=== PATIENT | male | born 1985 | race American Indian/Alaskan Native ===

== ENCOUNTER 2016-08-29 00:08 | Emergency (ER) | payer SELFPAY ==
[2016-08-29] MEDS ORDERED: NORCO 7.5/325 PO ONE (00:52)
[2016-08-29] MEDS ORDERED: VALIUM PO ONE (00:53)
[2016-08-29] MEDS ORDERED: ZOFRAN ONE (01:58)
[2016-08-29] MEDS ORDERED: MORPHINE ONE (01:58)
[2016-08-29] MEDS ORDERED: MORPHINE IV ONE (02:05)
[2016-08-29] MEDS ORDERED: ZOFRAN IV ONE (02:05)
[2016-08-29] MEDS ORDERED: XYLOCAINE 1%/ EPI 1:100,000 INFILTRATI ONE (02:05)
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
[2016-08-29 03:13] VITALS: BP 129/55
== END 2016-08-29 03:12 | disposition home or self-care (01) ==
LOC: ED 00:08
DX: S41.112A Laceration without foreign body of left upper arm, initial encounter (principal); F17.200 Nicotine dependence, unspecified, uncomplicated; X99.0XXA Assault by sharp glass, initial encounter; Y93.89 Activity, other specified; Y92.89 Other specified places as the place of occurrence of the external cause; Y99.0 Civilian activity done for income or pay
CPT/HCPCS: 12032; 96374; 96375; 99283; J2270; J2405

== ENCOUNTER 2016-12-08 01:29 | Emergency (ER) | payer SELFPAY ==
[2016-12-08] MEDS ORDERED: TYLENOL ONE (01:44)
[2016-12-08] MEDS ORDERED: TYLENOL PO ONE (01:44)
--- NOTE | 2016-12-08 03:26 | Ultrasound Report ---
FINAL REPORT PROCEDURE: US TESTICULAR DOPPLER COMP TECHNIQUE: Real-time leavitt-scale and color flow Doppler sonography in multiple planes of the scrotum, testicles, and epididymes was performed. Velocity spectral waveform analysis Doppler imaging of the arterial inflow and venous outflow of the testicles was performed with image documentation. CPT 87200 and 17351 HISTORY: TESTICULAR PAIN COMPARISON: No prior studies are available for comparison. FINDINGS: RIGHT TESTICLE: Size: 4.1 x 2 x 2.1 cm . Appearance: Normal size and echotexture . Arterial blood flow: Normal spectral waveforms, flow velocities and color flow images.. Venous blood flow: Normal spectral waveforms and color flow images. Right epididymis: Normal size and echotexture . Hydrocele: None . LEFT TESTICLE Size: 4 x 1.9 x 2.7 cm . Appearance: Normal size and echotexture . Arterial blood flow: Normal spectral waveforms, flow velocities and color flow images.. Venous blood flow: Normal spectral waveforms and color flow images. Leftepididymis: Normal size and echotexture . Hydrocele: None . IMPRESSION: Normal Examination
[2016-12-08] MEDS ORDERED: MOTRIN PO ONE (05:33)
--- NOTE | 2016-12-08 05:43 | Emergency Department Report ---
ED Fall HPI - General Chief Complaint: Fall Stated Complaint: FALL/BACK AND TESTICLE PAIN Source: patient Mode of arrival: Ambulatory - Related Data Previous Rx's Medication Instructions Recorded Last Taken Type Cephalexin [Keflex] 500 mg PO QID #20 capsule 08/29/16 Unknown Rx HYDROcodone/APAP 5-325 [[place] 1 each PO Q6HR PRN #12 tablet 08/29/16 Unknown Rx 5/325] Allergies Allergy/AdvReac Type Severity Reaction Status Date / Time diphenhydramine HCl Allergy Itching Verified 12/08/16 01:36 [From Sara] ED Review of Systems ROS: Stated complaint: FALL/BACK AND TESTICLE PAIN Other details as noted in HPI ED Past Medical Hx - Past Medical History Previous Medical History?: No - Surgical History Past Surgical History?: No - Social History Smoking Status: Current Every Day Smoker Substance Use Type: None - Medications Home Medications: Home Medications Medication Instructions Recorded Confirmed Last Taken Type Cephalexin [Keflex] 500 mg PO QID #20 capsule 08/29/16 Unknown Rx HYDROcodone/APAP 5-325 [[place] 1 each PO Q6HR PRN #12 tablet 08/29/16 Unknown Rx 5/325] ED Physical Exam - General Limitations: No Limitations ED Course Vital Signs 12/08/16 01:37 Temperature 98.8 F Pulse Rate 83 Respiratory 22 Rate Blood Pressure 142/80 O2 Sat by Pulse 98 Oximetry Critical care attestation.: If time is entered above; I have spent that time in minutes in the direct care of this critically ill patient, excluding procedure time. ED Disposition Condition: Stable Referrals: PRIMARY CARE, [Primary Care Provider] - 3-5 Days
[2016-12-08] MEDS ORDERED: NORCO 5/325 PO ONE ×2 (05:44→08:07)
--- NOTE | 2016-12-08 05:47 | Emergency Department Report ---
Chief Complaint: Fall Stated Complaint: FALL/BACK AND TESTICLE PAIN - HPI History of Present Illness: 31-year-old male presents with complaint of testicle pain and lower back pain status post fall fall down stairs at home. Patient denies loss of consciousness denies hitting his head. States he has right testicle pain for 1 year but the fall today made it worse. - ROS Review of Systems: 1 year of right sided testicle pain - Exam Vital Signs: Vital Signs 12/08/16 01:37 Temperature 98.8 F Pulse Rate 83 Respiratory 22 Rate Blood Pressure 142/80 O2 Sat by Pulse 98 Oximetry Physical Exam: Mild lower back pain on palpation of lumbar spine region. On exam of groin no hernia on direct palpation of testicle or inguinal canal bilaterally no palpable testicular mass, mild right-sided testicle/scrotal pain and swelling MSE screening note: Focused history and physical exam performed. Due to findings the following was ordered: Screening Assessment/Plan/Differential Dx: Testicle pain, lower back pain status post fall 1- This initial assessment/diagnostic orders/clinical plan/ treatment(s) is/are subject to change based on pt's health status, clinical progression and re- assessment by fellow clinical providers in the ED. Further treatment and workup at subsequent clinical provers discretion. Patient/guardians urged not to elope from ED as their condition may be serious if not clinically assessed and managed. 2-1 dose [place] 3-x-ray lower back L-spine. Patient is ambulatory. UA ordered 4-ultrasound scrotum shows good blood flow to both testicles, no indication of masses ED Disposition for MSE Condition: Stable Referrals: PRIMARY CARE, [Primary Care Provider] - 3-5 Days
--- NOTE | 2016-12-08 06:11 | XRay Report ---
FINAL REPORT PROCEDURE: XR SPINE LUMBOSACRAL 2-3V TECHNIQUE: Lumbar spine radiographs, including AP, lateral, and lumbosacral spot views. CPT 22483 HISTORY: lower back pain status post fall COMPARISON: No prior studies are available for comparison. FINDINGS: Alignment: Normal. Vertebral body heights/Disk spaces: Normal. Fracture(s): None. Facets: Normal. Bone mineralization: Normal. IMPRESSION: Normal Examination.
[2016-12-08 06:55] LABS: Bilirubin,Urine NEG (Negative); Blood,Urine NEG (Negative); Ketones,Urine NEG (Negative); Leukocyte Esterase,Urine NEG (Negative); Mucus,Urine 2+ /HPF; Nitrite,Urine NEG (Negative); Urobilinogen,Urine < 2.0 mg/dL (<2.0)
--- NOTE | 2016-12-08 07:43 | Emergency Department Report ---
ED Male HPI - General Chief complaint: Fall Stated complaint: FALL/BACK AND TESTICLE PAIN Time Seen by Provider: 12/08/16 07:21 Source: patient, family Mode of arrival: Ambulatory Limitations: No Limitations - History of Present Illness Initial comments: 31-year-old male presents with complaint of testicle pain and lower back pain status post fall fall down stairs at home. Patient denies loss of consciousness denies hitting his head. States he has right testicle pain for 1 year but the fall today made it worse. Patient denies any numbness or tingling to extremities. Denies any nausea or vomiting or dizziness. Denies any abdominal pain. Denies any urinary frequency urgency or burning. Denies any loss of bowel or bladder function. Explained is 10 out of 10 to his lower back and to attend to his testicles.testicular pain comes and goes. No over-the- counter medication taken MD Complaint: testicle pain, other (lower back) -: This morning Location: right testicle, left testicle (over a year) Radiation: none Severity: severe (lower back) Severity scale (0 -10): 10 Quality: aching Consistency: constant Improves with: none Worsens with: none other (lower back pain). denies: discharge, swelling, mass, rash, urinary retention, blood in urine, dysuria, fever, nausea/vomiting, incontinence - Related Data Sexually active: Yes Previous Rx's Medication Instructions Recorded Last Taken Type Cephalexin [Keflex] 500 mg PO QID #20 capsule 08/29/16 Unknown Rx HYDROcodone/APAP 5-325 [[place] 1 each PO Q6HR PRN #12 tablet 08/29/16 Unknown Rx 5/325] traMADol [Ultram] 50 mg PO Q6HR PRN #20 tablet 12/08/16 Unknown Rx Allergies Allergy/AdvReac Type Severity Reaction Status Date / Time diphenhydramine HCl Allergy Itching Verified 12/08/16 01:36 [From Sara] ED Review of Systems ROS: Stated complaint: FALL/BACK AND TESTICLE PAIN Other details as noted in HPI Comment: All other systems reviewed and negative Constitutional: denies: chills, fever ENT: denies: throat pain Respiratory: no symptoms reported Cardiovascular: denies: chest pain, palpitations, edema, syncope Gastrointestinal: denies: abdominal pain, nausea, vomiting, diarrhea Genitourinary: testicular pain. denies: urgency, dysuria, frequency, hematuria , discharge, testicular mass Musculoskeletal: back pain. denies: joint swelling, arthralgia, myalgia Skin: denies: rash Neurological: denies: headache, weakness, numbness, paresthesias, confusion, abnormal gait, vertigo ED Past Medical Hx - Past Medical History Previous Medical History?: No - Surgical History Past Surgical History?: No - Family History Family history: no significant - Social History Smoking Status: Current Every Day Smoker Substance Use Type: None - Medications Home Medications: Home Medications Medication Instructions Recorded Confirmed Last Taken Type Cephalexin [Keflex] 500 mg PO QID #20 capsule 08/29/16 Unknown Rx HYDROcodone/APAP 5-325 [[place] 1 each PO Q6HR PRN #12 tablet 08/29/16 Unknown Rx 5/325] traMADol [Ultram] 50 mg PO Q6HR PRN #20 tablet 12/08/16 Unknown Rx ED Physical Exam - General Limitations: No Limitations General appearance: alert, in no apparent distress - Head Head exam: Present: atraumatic, normocephalic, normal inspection - Expanded Head Exam Expanded Head exam: Absent: laceration, abrasion, contusion, hematoma, racoon eyes, pascual's sign, general tenderness, tenderness of temporal artery, CSF rhinorrhea , CSF otorrhea - Eye Eye exam: Present: normal appearance, PERRL, EOMI. Absent: scleral icterus, conjunctival injection, nystagmus, periorbital swelling, periorbital tenderness Pupils: Present: normal accommodation - ENT ENT exam: Present: normal exam, normal orophraynx, mucous membranes moist, TM's normal bilaterally, normal external ear exam - Neck Neck exam: Present: normal inspection, full ROM. Absent: tenderness, meningismus, lymphadenopathy, thyromegaly - Expanded Neck Exam Expanded Neck exam: Absent: tenderness, midline deformity, anterior neck swelling, tracheal deviation - Respiratory Respiratory exam: Present: normal lung sounds bilaterally. Absent: respiratory distress, chest wall tenderness - Cardiovascular Cardiovascular Exam: Present: regular rate, normal rhythm, normal heart sounds - GI/Abdominal GI/Abdominal exam: Present: soft, normal bowel sounds. Absent: distended, tenderness, guarding, rebound, rigid - exam: Present: normal inspection, testicular tenderness. Absent: urethral discharge, scrotal swelling, vertical testicular lie External exam: Present: normal external exam. Absent: erythema, swelling, lesions, lacerations, ecchymosis, bleeding - Extremities Exam Extremities exam: Present: normal inspection, full ROM, normal capillary refill. Absent: tenderness, pedal edema, joint swelling, calf tenderness - Back Exam Back exam: Present: normal inspection, full ROM, vertebral tenderness (lumbar spine). Absent: tenderness, CVA tenderness (R), CVA tenderness (L), muscle spasm, paraspinal tenderness, rash noted - Expanded Back Exam Expanded Back exam: Absent: saddle anesthesia Back exam: Negative Straight Leg Raising: Left, Right - Neurological Exam Neurological exam: Present: alert, oriented X3, normal gait, reflexes normal. Absent: motor sensory deficit - Expanded Neurological Exam Expanded Neurological exam: Absent: innattentive, memory loss-remote event, memory loss- recent event, ataxia, receptive aphasia, expressive aphasia, total aphasia, tremor, protecting the airway Patient oriented to: Present: person, place, time Speech: Present: fluid speech Cranial nerves: EOM's Intact: Normal, Gag Reflex: Normal, Tongue Deviation: Normal, Nystagmus: Normal, Facial Sensation: Normal Cerebellar function: Romberg: Normal Upper motor neuron: Pronator Drift: Normal, Sensory Extinction: Normal Sensory exam: Upper Extremity Light Touch: Normal, Upper Extremity Temperature: Normal, UE 2 Point Discrimination: Normal, Lower Extremity Light Touch: Normal, Lower Extremity Temperature: Normal, LE 2 Point Discrimination: Normal Motor strength exam: RUE: 5, LUE: 5, RLE: 5, LLE: 5 DTR: bicep (R): 2+, bicep (L): 2+, tricep (R): 2+, tricep (L): 2+, knee (R): 2+ , knee (L): 2+, ankle (R): 2+, ankle (L): 2+ Best Eye Response ([place]): (4) open spontaneously Best Motor Response ([place]): (6) obeys commands Best Verbal Response ([place]): (5) oriented [place] Total: 15 - Psychiatric Psychiatric exam: Present: normal affect, normal mood - Skin Skin exam: Present: warm, dry, intact, normal color. Absent: rash ED Course Vital Signs 12/08/16 12/08/16 01:37 05:52 Temperature 98.8 F Pulse Rate 83 78 Respiratory 22 18 Rate Blood Pressure 142/80 Blood Pressure 138/78 [Right] O2 Sat by Pulse 98 98 Oximetry - Reevaluation(s) Reevaluation #1: 12/08/16 08:05 Patient stable throughout ED course: 12/08/16 08:07 Patient given [place] 5/325 a total of 2 tablets in emergency room. He was also given Tylenol 975 mg. Pain down to 3 out of 10. She able to ambulate in room without any difficulties. ED Medical Decision Making - Lab Data Lab Results 12/08/16 Range/Units 06:29 Urine Color Yellow (Yellow) Urine Turbidity Clear (Clear) Urine pH 5.0 (5.0-7.0) Ur Specific [place] 1.035 H (1.003-1.030) Urine Protein 30 mg/dl (Negative) mg/dL Urine Glucose (UA) Neg (Negative) mg/dL Urine Ketones Neg (Negative) mg/dL Urine Blood Neg (Negative) Urine Nitrite Neg (Negative) Urine Bilirubin Neg (Negative) Urine Urobilinogen < 2.0 (<2.0) mg/dL Ur Leukocyte Esterase Neg (Negative) Urine WBC (Auto) 1.0 (0.0-6.0) /HPF Urine RBC (Auto) 3.0 (0.0-6.0) /HPF U Epithel Cells (Auto) 1.0 (0-13.0) /HPF Urine Mucus 2+ /HPF - Radiology Data Radiology results: report reviewed X-ray of the lumbar spine reveal no acute findings. Ultrasound of testicles reveals no acute findings. Normal venous and arterial blood flow - Medical Decision Making ED course: Patient status post fall with complaint of lower back pain which x- ray shows no acute fracture or subluxation. Also with testicular pain for over one year .testicular exam is normal and ultrasound revealed no acute findings. Urinalysis without any acute findings. Lab results and diagnostic resolved explained to patient and family voiced understanding. I informed him that he will need to follow-up with outpatient urology and also primary care and orthopedics . He does not have a primary care physician so I told him to follow up at [facility] to call and Saturday to schedule an appointment. Patient given Tylenol 975 mg 1 by mouth in triage and [place] 5/3/20 /25 milligrams 2 tablets in one tablet increments in emergency room with positive relief of pain. Critical care attestation.: If time is entered above; I have spent that time in minutes in the direct care of this critically ill patient, excluding procedure time. ED Disposition Clinical Impression: Testicular pain, left, Protein in urine Fall down stairs Qualifiers: Encounter type: initial encounter Qualified Code(s): W10.8XXA - Fall (on) (from ) other stairs and steps, initial encounter Lower back pain Qualifiers: Chronicity: acute Back pain laterality: midline Sciatica presence: without sciatica Qualified Code(s): M54.5 - Low back pain Disposition: TO HOME OR SELFCARE Is pt being admited?: No Does the pt Need Aspirin: No Condition: Stable Instructions: Fall Prevention (ED), Acute Low Back Pain (ED), Testicle Pain (ED ) Additional Instructions: Please follow up with orthopedic doctor and urologist as instructed Take Ultram as needed for pain per instructions Rest for [address] [facility] for primary care Is increase her fluid intake as your urinalysis showed that you are not drinking enough fluids You have some protein in urine sodium need to follow-up at [facility] for reevaluation if urinalysis. Prescriptions: traMADol [Ultram] 50 mg PO Q6HR PRN #20 tablet PRN Reason: Pain Referrals: [facility] [Outside] - 3-5 Days MERLIN PARR MD [Staff Physician] - 2-3 Days [facility] [Provider Group] - 3-5 Days Forms: Accompanied Note, Work/School Release Form(ED)
[2016-12-08 09:21] VITALS: BP 105/68
== END 2016-12-08 08:51 | disposition home or self-care (01) ==
LOC: ED 01:29
DX: M54.5 Low back pain (principal); N50.812 Left testicular pain; R80.9 Proteinuria, unspecified; F17.200 Nicotine dependence, unspecified, uncomplicated; Z88.8 Allergy status to other drugs, medicaments and biological substances; W10.9XXA Fall (on) (from) unspecified stairs and steps, initial encounter; Y93.89 Activity, other specified; Y99.8 Other external cause status; Y92.098 Other place in other non-institutional residence as the place of occurrence of the external cause
CPT/HCPCS: 72100; 81001; 93975

== ENCOUNTER 2017-06-09 15:45 | Emergency (ER) | payer OTHER ==
[2017-06-09 16:53] VITALS: BP 117/69
[2017-06-09] MEDS ORDERED: NORCO 5/325 PO ONE (21:07)
[2017-06-09 21:18] LABS: Basophils % (Auto) 0.6 % (0.0-1.8); Eosinophils # (Auto) 0.2 K/mm3 (0.0-0.4); Eosinophils % (Auto) 2.8 % (0.0-4.3); Hematocrit 39.8 % (35.5-45.6); Hemoglobin 13.3 gm/dl (11.8-15.2); Lymphocytes # (Auto) 1.8 K/mm3 (1.2-5.4); Lymphocytes % (Auto) 26.9 % (13.4-35.0); Mean Corpuscular HGB Conc 33 % (32-34); Mean Corpuscular Hemoglobin 31 pg (28-32); Mean Corpuscular Volume 93 fl (84-94); Monocytes # (Auto) 0.9 K/mm3 (0.0-0.8); Monocytes % (Auto) 13.6 % (0.0-7.3); Platelet Count 275 K/mm3 (140-440); Red Blood Count 4.29 M/mm3 (3.65-5.03); Red Cell Distribution Width 14.2 % (13.2-15.2)
[2017-06-09 21:24] LABS: Bacteria,Urine 1+ /HPF (Negative); Bilirubin,Urine NEG (Negative); Blood,Urine SM (Negative); Color,Urine Yellow (Yellow); Mucus,Urine FEW /HPF; Nitrite,Urine NEG (Negative); Urobilinogen,Urine < 2.0 mg/dL (<2.0)
[2017-06-09 21:31] LABS: Amphetamine Screen,Urine PRESUMPTIVE NEGATIVE; Benzodiazepines Screen,Urine PRESUMPTIVE NEGATIVE; Cannabinoid Screen,Urine PRESUMPTIVE NEGATIVE; Cocaine Screen,Urine PRESUMPTIVE NEGATIVE; Methadone Screen,Urine PRESUMPTIVE NEGATIVE; Opiate Screen,Urine PRESUMPTIVE NEGATIVE
[2017-06-09 21:40] LABS: BUN/Creatinine Ratio 9; Blood Urea Nitrogen 12 mg/dL (9-20); Calcium 9.6 mg/dL (8.4-10.2); Hemolysis Index 12
--- NOTE | 2017-06-09 21:49 | Emergency Department Report ---
ED Extremity Problem HPI - General Chief complaint: Pain General Stated complaint: PELVIC/BACK PAIN Time Seen by Provider: 06/09/17 21:02 Source: patient Mode of arrival: Ambulatory Limitations: No Limitations - History of Present Illness Initial comments: 31-year-old male past medical history none presents with complaint of several years of body pain. Patient states he has intermittent aching of his hips bilaterally. Denies any trauma denies any fevers chills nausea vomiting dysuria or increased urinary frequency or hematuria. Denies any abdominal or flank pain denies any chest pain or palpitations. Patient states that he has been told in urgent care that he may have fibromyalgia. Patient states he came to the ED for second opinion. Patient states that currently he has some hip pain. Patient is ambulatory without assistance. He states he has taken Tylenol and NSAIDs with minimal relief of his pain. Patient is awake alert and oriented 3 nontoxic appearing. MD Complaint: extremity pain -: year(s) Location: other (hips) -: Yes arthralgia Radiation: none Quality: aching Consistency: constant Associated Symptoms: arthralgias - Related Data Previous Rx's Medication Instructions Recorded Last Taken Type Cephalexin [Keflex] 500 mg PO QID #20 capsule 08/29/16 Unknown Rx HYDROcodone/APAP 5-325 [[place] 1 each PO Q6HR PRN #12 tablet 08/29/16 Unknown Rx 5/325] traMADol [Ultram] 50 mg PO Q6HR PRN #20 tablet 12/08/16 Unknown Rx Naproxen 500 mg PO BID PRN #30 tablet 06/09/17 Unknown Rx traMADol [Ultram 50 MG tab] 50 mg PO Q6HR PRN #10 tablet 06/09/17 Unknown Rx Allergies Allergy/AdvReac Type Severity Reaction Status Date / Time diphenhydramine HCl Allergy Itching Verified 06/09/17 16:50 [From Benadryl] ED Review of Systems ROS: Stated complaint: PELVIC/BACK PAIN Other details as noted in HPI Constitutional: denies: chills, fever Eyes: denies: eye pain, eye discharge, vision change ENT: denies: ear pain, throat pain Respiratory: denies: cough, shortness of breath, wheezing Cardiovascular: denies: chest pain, palpitations Endocrine: no symptoms reported Gastrointestinal: denies: abdominal pain, nausea, diarrhea Genitourinary: denies: urgency, dysuria Musculoskeletal: as per HPI, arthralgia. denies: back pain, joint swelling Skin: denies: rash, lesions Neurological: denies: headache, weakness, paresthesias Psychiatric: denies: anxiety, depression Hematological/Lymphatic: denies: easy bleeding, easy bruising ED Past Medical Hx - Past Medical History Previous Medical History?: No - Surgical History Past Surgical History?: No - Social History Smoking Status: Current Every Day Smoker Substance Use Type: None - Medications Home Medications: Home Medications Medication Instructions Recorded Confirmed Last Taken Type Cephalexin [Keflex] 500 mg PO QID #20 capsule 08/29/16 Unknown Rx HYDROcodone/APAP 5-325 [[place] 1 each PO Q6HR PRN #12 tablet 08/29/16 Unknown Rx 5/325] traMADol [Ultram] 50 mg PO Q6HR PRN #20 tablet 12/08/16 Unknown Rx Naproxen 500 mg PO BID PRN #30 tablet 06/09/17 Unknown Rx traMADol [Ultram 50 MG tab] 50 mg PO Q6HR PRN #10 tablet 06/09/17 Unknown Rx ED Physical Exam - General Limitations: No Limitations General appearance: alert, in no apparent distress - Head Head exam: Present: atraumatic, normocephalic - Eye Eye exam: Present: normal appearance, PERRL, EOMI - ENT ENT exam: Present: mucous membranes moist - Neck Neck exam: Present: normal inspection - Respiratory Respiratory exam: Present: normal lung sounds bilaterally. Absent: respiratory distress - Cardiovascular Cardiovascular Exam: Present: regular rate, normal rhythm. Absent: systolic murmur, diastolic murmur, rubs, gallop - GI/Abdominal GI/Abdominal exam: Present: soft, normal bowel sounds - Rectal Rectal exam: Present: deferred - Extremities Exam Extremities exam: Present: normal inspection - Back Exam Back exam: Present: normal inspection - Neurological Exam Neurological exam: Present: alert, oriented X3 - Psychiatric Psychiatric exam: Present: normal affect, normal mood - Skin Skin exam: Present: warm, dry, intact, normal color. Absent: rash ED Course Vital Signs 06/09/17 16:50 Temperature 98.8 F Pulse Rate 78 Respiratory 16 Rate Blood Pressure 117/69 O2 Sat by Pulse 99 Oximetry ED Medical Decision Making - Lab Data Result diagrams: 06/09/17 21:06/09/17 21:07 - Medical Decision Making A/P: Arthralgias, chronic hip pain, possible pain disorder 1-naproxen when necessary, short course tramadol when necessary 2-follow up with primary care and pain management 3-labs unremarkable, urinalysis unremarkable. UA does show some leukocytes with trace leukocyte esterase will treat patient empirically with Cipro. Patient has no urinary symptoms at this time. No flank pain no testicular or penile pain or dysuria no suprapubic tenderness Critical care attestation.: If time is entered above; I have spent that time in minutes in the direct care of this critically ill patient, excluding procedure time. ED Disposition Clinical Impression: Chronic hip pain Qualifiers: Laterality: unspecified laterality Qualified Code(s): M25.559 - Pain in unspecified hip; G89.29 - Other chronic pain; G89.29 - Other chronic pain Disposition: TO HOME OR SELFCARE Is pt being admited?: No Does the pt Need Aspirin: No Condition: Stable Instructions: Chronic Pain (ED), Arthralgia (ED) Prescriptions: Naproxen 500 mg PO BID PRN #30 tablet PRN Reason: Pain traMADol [Ultram 50 MG tab] 50 mg PO Q6HR PRN #10 tablet PRN Reason: Pain Referrals: [facility] [place][Note 3] [Outside] - 3-5 Days [facility] [Outside] - 3-5 Days MAY BARAJAS MD [Staff Physician] - 3-5 Days Time of Disposition: 23:04
--- NOTE | 2017-06-09 23:09 | XRay Report ---
FINAL REPORT EXAM: XR HIPS BILAT 2V W/PELVIS HISTORY: hip pain COMPARISON: None available. FINDINGS: AP view of the pelvis and frogleg views of each hip obtained. Pelvic ring is intact. Bilateral hip and SI joint spaces are preserved. Small bony protuberance along the superior lateral margin left acetabular rim. This may be developmental or could relate to sequelae of prior trauma. Mild hypertrophic spurring along the lateral margin left femoral neck. No acute fracture dislocation on today's exam. Bowel gas partially obscures the sacrum. IMPRESSION: No acute bony abnormality. Bony bony protrusions along the lateral superior margin left acetabular rim and mild spurring along the lateral margin left femoral neck. Combination of findings could predispose the patient to femoral acetabular impingement.
== END 2017-06-09 23:15 | disposition home or self-care (01) ==
LOC: ED 15:45
DX: M25.551 Pain in right hip (principal); M25.552 Pain in left hip; G89.29 Other chronic pain; F17.200 Nicotine dependence, unspecified, uncomplicated; Z88.8 Allergy status to other drugs, medicaments and biological substances; Z79.899 Other long term (current) drug therapy
CPT/HCPCS: 36415; 73521; 80048; 80307; 81001; 82550; 85025; 99284

== ENCOUNTER 2017-06-10 21:25 | Inpatient (IN) | payer OTHER ==
[~2017-06-10 21:25] MED LIST: AMIDATE IV ONE; KETALAR ONE; QUELICIN ONE; VERSED IV ONE; ZEMURON IV ONE
[2017-06-10] MEDS ORDERED: ATIVAN ONE (21:34)
[2017-06-10] MEDS ORDERED: MORPHINE ONE (21:36)
[2017-06-10] MEDS ORDERED: KEPPRA 1,000 MG/NS 0.75% 100ML 1,000 MG/100 ML BAG IV ONE ×2 (21:37→22:00)
[2017-06-10] MEDS ORDERED: ROCEPHIN/NS 2 GM/100 ML 2 GM/100 ML BAG IV ONE (21:40)
[2017-06-10] MEDS ORDERED: NACL 0.9% 1000 ML IV ONE (21:40)
[2017-06-10] MEDS ORDERED: ARTIFICIAL TEARS OPHTH OINT OU PRN (21:44)
[2017-06-10] MEDS ORDERED: TYLENOL PR ONE (21:44)
[2017-06-10] MEDS ORDERED: ZEMURON IV ONE (21:44)
[2017-06-10] MEDS ORDERED: AMIDATE IV ONE (21:44)
[2017-06-10] MEDS ORDERED: DECADRON IV ONE (21:49)
[2017-06-10] MEDS ORDERED: VANCOMYCIN/NS 1 GM/250 ML 1 GM/250 ML BAG IV ONE (22:00)
[2017-06-10] MEDS ORDERED: VERSED IV NR (22:00)
[2017-06-10] MEDS ORDERED: cefTRIAXone 2 GM in NACL 0.9% 20 ML IV ONE (22:00)
[2017-06-10] MEDS ORDERED: NACL 0.9% 500 ML IV SCH (22:00)
--- NOTE | 2017-06-10 22:05 | Emergency Department Report ---
ED General Adult HPI - General Chief complaint: Dyspnea/Respdistress Stated complaint: POSS ALLERGIC REACTION Time Seen by Provider: 06/10/17 21:39 Source: family Mode of arrival: Wheelchair Limitations: Altered Mental Status - History of Present Illness Initial comments: This is a 31-year-old male who was previously unknown to this provider, who is brought to the hospital by his for possible allergic reaction. The patient was pulled out of the car, nonverbal. Upon my initial evaluation, patient was tachycardic, and sonorously breathing. He was obtunded, and not protecting his airway. In addition, he was noted to have nonspecific ocular movements, and a generalized convulsive event. Patient placed on a addiction psychiatrist, he is placed on a nasal cannula, IV access is established, and qsb-[id number] ventilation is applied. He is given 20 mg of etomidate, 100 mg rocuronium, and he is intubated using direct laryngoscopy using a 7.5 endotracheal tube, and occurred Aguilar's 4 blade. He is also given 5 mg of Versed, and given Keppra 1 g empirically. Review of recent medical records indicates the patient was seen here yesterday for nonspecific musculoskeletal pain, started on ciprofloxacin and tramadol. -: unknown Consistency: constant Improves with: none Worsens with: none Associated Symptoms: confusion - Related Data Previous Rx's Medication Instructions Recorded Last Taken Type Cephalexin [Keflex] 500 mg PO QID #20 capsule 08/29/16 Unknown Rx HYDROcodone/APAP 5-325 [[place] 1 each PO Q6HR PRN #12 tablet 08/29/16 Unknown Rx 5/325] traMADol [Ultram] 50 mg PO Q6HR PRN #20 tablet 12/08/16 Unknown Rx Ciprofloxacin HCl [Cipro] 500 mg PO BID #14 tablet 06/09/17 Unknown Rx Naproxen 500 mg PO BID PRN #30 tablet 06/09/17 Unknown Rx traMADol [Ultram 50 MG tab] 50 mg PO Q6HR PRN #10 tablet 06/09/17 Unknown Rx Allergies Allergy/AdvReac Type Severity Reaction Status Date / Time diphenhydramine HCl Allergy Itching Verified 06/09/17 16:50 [From Benadryl] ED Review of Systems ROS: Stated complaint: POSS ALLERGIC REACTION Other details as noted in HPI Comment: Unobtainable due to pts medical conditions ED Past Medical Hx - Social History Smoking Status: Current Every Day Smoker Substance Use Type: None - Medications Home Medications: Home Medications Medication Instructions Recorded Confirmed Last Taken Type Cephalexin [Keflex] 500 mg PO QID #20 capsule 08/29/16 Unknown Rx HYDROcodone/APAP 5-325 [[place] 1 each PO Q6HR PRN #12 tablet 08/29/16 Unknown Rx 5/325] traMADol [Ultram] 50 mg PO Q6HR PRN #20 tablet 12/08/16 Unknown Rx Ciprofloxacin HCl [Cipro] 500 mg PO BID #14 tablet 06/09/17 Unknown Rx Naproxen 500 mg PO BID PRN #30 tablet 06/09/17 Unknown Rx traMADol [Ultram 50 MG tab] 50 mg PO Q6HR PRN #10 tablet 06/09/17 Unknown Rx ED Physical Exam - General Limitations: Altered Mental Status General appearance: obtunded - Eye Eye exam: Present: normal appearance, other (pupils are 3 mm bilaterally, minimally reactive to light) - ENT ENT exam: Present: normal orophraynx - Neck Neck exam: Present: normal inspection - Respiratory Respiratory exam: Present: normal lung sounds bilaterally. Absent: respiratory distress, chest wall tenderness - Cardiovascular Cardiovascular Exam: Present: normal rhythm, tachycardia. Absent: systolic murmur, diastolic murmur, rubs, gallop - GI/Abdominal GI/Abdominal exam: Present: soft, normal bowel sounds. Absent: distended, tenderness, guarding, rebound, rigid, pulsatile mass - Rectal Rectal exam: Present: normal inspection - exam: Present: normal inspection - Extremities Exam Extremities exam: Present: normal inspection, other (the compartments are soft. There is no clonus. There are downgoing plantar reflexes bilaterally) - Back Exam Back exam: Present: other (no vertebral step-offs are noted). Absent: paraspinal tenderness, vertebral tenderness - Neurological Exam Neurological exam: Present: altered (patient is nonverbal. Prior to paralysis and intubation, he is noted to have total convulsive body event.) - Psychiatric Psychiatric exam: Present: other (patient nonverbal and altered) - Skin Skin exam: Present: dry ED Course Vital Signs 06/10/17 06/10/17 06/10/17 21:35 21:46 22:07 Temperature 102.5 F H Pulse Rate 105 H 104 H Respiratory 12 18 Rate Blood Pressure 192/109 176/100 O2 Sat by Pulse 100 100 Oximetry 06/10/17 23:09 Temperature Pulse Rate 99 H Respiratory Rate Blood Pressure 136/73 O2 Sat by Pulse 100 Oximetry - Reevaluation(s) Reevaluation #1: 06/10/17 22:03 Differential diagnosis, including but not limited to: Toxic encephalopathy, metabolic encephalopathy, infectious encephalopathy, meningitis, bacteremia Assessment and plan: 31-year-old male with fever, tachycardia, altered mental status requiring intubation. We will check basic laboratory studies. CT scan of the brain is pending. Serum toxicology studies are pending. Urine toxicology study was negative yesterday. Patient will be treated empirically for community-acquired meningitis along a sepsis pathway, with appropriate IV fluids, lactic acid, Decadron, ceftriaxone, vancomycin. He will be placed on isolation as per standard protocol. Given convulsive event, I highly suspect that the patient may have had interaction from trauma and on ciprofloxacin which was recently prescribed for him. Both of these medications do decrease seizure threshold. Case was discussed with critical care physician on-call, Dr. Mei; she authorizes placement into the intensive care unit, assuming no intracranial hemorrhage or other condition is identified that would require transfer. Reevaluation #2: 06/10/17 23:10 Laboratory studies reviewed and appreciated. Elevated lactic acid that is appreciated. CT scan of the brain is negative. X-ray of the chest is negative. Extensive discussion had with patient's . Risks, benefits, alternatives of spinal tap were discussed with her, and she gives written consent for spinal tap. This is witnessed by nurse Crescencio Montes. Case was in the hospital physician, Dr. Baca, who accepted the patient to the medical service. Reevaluation #3: 06/10/17 23:42 Spinal tap unsuccessful. Hospital team informed. - Intubation Time Out Performed: Yes Sedative: Etomidate Mg Given: 20 Paralytic: Rocuronium Mg Given: 100 Laryngoscope: [place] Size: 4 ET Tube Size: 7.5 Tube Secured Location: teeth Tube Placement Confirmation: visualized tube passing t Patient Tolerated Procedure: well Intubation Complications: none Additional Comments: Patient placed on a nasal cannula at 15 L/m. Patient receives thr-stsib-vpch ventilation, and does not desaturate. Patient intubated by myself with one attempt using direct laryngoscopy without complication or difficulty. - Lumbar Puncture Consent Obtained: verbal consent, written consent, emergent situation Time Out Performed: Yes Indication for Procedure: fever work up, change in mental status Patient Position: right lateral decubitus Skin Prep: Povidone-Iodine 1% Local Anesthetic Used: Lidocaine 1% Amount of anesthesia used (mls): 5 Spinal Needle Gauge: 22G Interspace Used: L4-L5 Fluid Initially Obtained: other Complications: unable to obtain CSF Patient Tolerated Procedure: well ED Medical Decision Making - Lab Data Result diagrams: 06/10/17 21:52 06/10/17 21:52 Vital Signs 06/10/17 06/10/17 06/10/17 21:35 21:46 22:07 Temperature 102.5 F H Pulse Rate 105 H 104 H Respiratory 12 18 Rate Blood Pressure 192/109 176/100 O2 Sat by Pulse 100 100 Oximetry Lab Results 06/10/17 06/10/17 06/10/17 Range/Units 21:50 21:52 21:52 WBC 7.3 (4.5-11.0) K/mm3 RBC 4.26 (3.65-5.03) M/mm3 Hgb 13.1 (11.8-15.2) gm/dl Hct 40.3 (35.5-45.6) % MCV 95 H (84-94) fl MCH 31 (28-32) pg MCHC 33 (32-34) % RDW 14.1 (13.2-15.2) % Plt Count 219 (140-440) K/mm3 Lymph % (Auto) 6.7 L (13.4-35.0) % [place] % (Auto) 13.7 H (0.0-7.3) % Eos % (Auto) 1.3 (0.0-4.3) % Baso % (Auto) 0.2 (0.0-1.8) % Lymph # 0.5 L (1.2-5.4) K/mm3 [place] # 1.0 H (0.0-0.8) K/mm3 Eos # 0.1 (0.0-0.4) K/mm3 Baso # 0.0 (0.0-0.1) K/mm3 Seg Neutrophils % 78.1 H (40.0-70.0) % Seg Neutrophils # 5.7 (1.8-7.7) K/mm3 PT (12.2-14.9) Sec. INR (0.87-1.13) Sodium 141 (137-145) mmol/L Potassium 3.2 L D (3.6-5.0) mmol/L Chloride 100.9 (98-107) mmol/L Carbon Dioxide 22 (22-30) mmol/L Anion Gap 21 mmol/L BUN 9 (9-20) mg/dL Creatinine 1.2 (0.8-1.5) mg/dL Estimated GFR > 60 ml/min BUN/Creatinine Ratio 8 % Glucose 73 L (75-100) mg/dL Lactic Acid (0.7-2.0) mmol/L Calcium 9.5 (8.4-10.2) mg/dL Magnesium (1.7-2.3) mg/dL Total Bilirubin 0.90 (0.1-1.2) mg/dL AST 17 (5-40) units/L ALT 10 (7-56) units/L Alkaline Phosphatase 48 (35-129) units/L Total Creatine Kinase (55-170) units/L Troponin T < 0.010 (0.00-0.029) ng/mL Total Protein 8.4 H (6.3-8.2) g/dL Albumin 4.7 (3.9-5) g/dL Albumin/Globulin Ratio 1.3 % Urine Color Yellow (Yellow) Urine Turbidity Clear (Clear) Urine pH 5.0 (5.0-7.0) Ur Specific [place] 1.019 (1.003-1.030) Urine Protein <15 mg/dl (Negative) mg/dL Urine Glucose (UA) Neg (Negative) mg/dL Urine Ketones Neg (Negative) mg/dL Urine Blood Sm (Negative) Urine Nitrite Neg (Negative) Urine Bilirubin Neg (Negative) Urine Urobilinogen < 2.0 (<2.0) mg/dL Ur Leukocyte Esterase Neg (Negative) Urine WBC (Auto) 4.0 (0.0-6.0) /HPF Urine RBC (Auto) 1.0 (0.0-6.0) /HPF Urine Mucus Few /HPF Salicylates (2.8-20.0) mg/dL 06/10/17 06/10/17 06/10/17 Range/Units 21:52 21:52 21:52 WBC (4.5-11.0) K/mm3 RBC (3.65-5.03) M/mm3 Hgb (11.8-15.2) gm/dl Hct (35.5-45.6) % MCV (84-94) fl MCH (28-32) pg MCHC (32-34) % RDW (13.2-15.2) % Plt Count (140-440) K/mm3 Lymph % (Auto) (13.4-35.0) % [place] % (Auto) (0.0-7.3) % Eos % (Auto) (0.0-4.3) % Baso % (Auto) (0.0-1.8) % Lymph # (1.2-5.4) K/mm3 [place] # (0.0-0.8) K/mm3 Eos # (0.0-0.4) K/mm3 Baso # (0.0-0.1) K/mm3 Seg Neutrophils % (40.0-70.0) % Seg Neutrophils # (1.8-7.7) K/mm3 PT 12.7 (12.2-14.9) Sec. INR 0.91 (0.87-1.13) Sodium (137-145) mmol/L Potassium (3.6-5.0) mmol/L Chloride (98-107) mmol/L Carbon Dioxide (22-30) mmol/L Anion Gap mmol/L BUN (9-20) mg/dL Creatinine (0.8-1.5) mg/dL Estimated GFR ml/min BUN/Creatinine Ratio % Glucose (75-100) mg/dL Lactic Acid 3.30 H* (0.7-2.0) mmol/L Calcium (8.4-10.2) mg/dL Magnesium (1.7-2.3) mg/dL Total Bilirubin (0.1-1.2) mg/dL AST (5-40) units/L ALT (7-56) units/L Alkaline Phosphatase (35-129) units/L Total Creatine Kinase 166 (55-170) units/L Troponin T (0.00-0.029) ng/mL Total Protein (6.3-8.2) g/dL Albumin (3.9-5) g/dL Albumin/Globulin Ratio % Urine Color (Yellow) Urine Turbidity (Clear) Urine pH (5.0-7.0) Ur Specific [place] (1.003-1.030) Urine Protein (Negative) mg/dL Urine Glucose (UA) (Negative) mg/dL Urine Ketones (Negative) mg/dL Urine Blood (Negative) Urine Nitrite (Negative) Urine Bilirubin (Negative) Urine Urobilinogen (<2.0) mg/dL Ur Leukocyte Esterase (Negative) Urine WBC (Auto) (0.0-6.0) /HPF Urine RBC (Auto) (0.0-6.0) /HPF Urine Mucus /HPF Salicylates (2.8-20.0) mg/dL 06/10/17 06/10/17 Range/Units 21:52 22:52 WBC (4.5-11.0) K/mm3 RBC (3.65-5.03) M/mm3 Hgb (11.8-15.2) gm/dl Hct (35.5-45.6) % MCV (84-94) fl MCH (28-32) pg MCHC (32-34) % RDW (13.2-15.2) % Plt Count (140-440) K/mm3 Lymph % (Auto) (13.4-35.0) % [place] % (Auto) (0.0-7.3) % Eos % (Auto) (0.0-4.3) % Baso % (Auto) (0.0-1.8) % Lymph # (1.2-5.4) K/mm3 [place] # (0.0-0.8) K/mm3 Eos # (0.0-0.4) K/mm3 Baso # (0.0-0.1) K/mm3 Seg Neutrophils % (40.0-70.0) % Seg Neutrophils # (1.8-7.7) K/mm3 PT (12.2-14.9) Sec. INR (0.87-1.13) Sodium (137-145) mmol/L Potassium (3.6-5.0) mmol/L Chloride (98-107) mmol/L Carbon Dioxide (22-30) mmol/L Anion Gap mmol/L BUN (9-20) mg/dL Creatinine (0.8-1.5) mg/dL Estimated GFR ml/min BUN/Creatinine Ratio % Glucose (75-100) mg/dL Lactic Acid (0.7-2.0) mmol/L Calcium (8.4-10.2) mg/dL Magnesium 1.80 (1.7-2.3) mg/dL Total Bilirubin (0.1-1.2) mg/dL AST (5-40) units/L ALT (7-56) units/L Alkaline Phosphatase (35-129) units/L Total Creatine Kinase (55-170) units/L Troponin T (0.00-0.029) ng/mL Total Protein (6.3-8.2) g/dL Albumin (3.9-5) g/dL Albumin/Globulin Ratio % Urine Color (Yellow) Urine Turbidity (Clear) Urine pH (5.0-7.0) Ur Specific [place] (1.003-1.030) Urine Protein (Negative) mg/dL Urine Glucose (UA) (Negative) mg/dL Urine Ketones (Negative) mg/dL Urine Blood (Negative) Urine Nitrite (Negative) Urine Bilirubin (Negative) Urine Urobilinogen (<2.0) mg/dL Ur Leukocyte Esterase (Negative) Urine WBC (Auto) (0.0-6.0) /HPF Urine RBC (Auto) (0.0-6.0) /HPF Urine Mucus /HPF Salicylates < 0.3 L (2.8-20.0) mg/dL - EKG Data -: EKG Interpreted by Me - EKG Data When compared to previous EKG there are: previous EKG unavailable 06/10/17 22:18 Sinus, 96 bpm, normal axis, normal intervals, borderline high left ventricular voltage, abnormal EKG, not morphologically consistent with ST elevation myocardial infarction - Radiology Data Radiology results: report reviewed, image reviewed interpreted by me: X-ray the chest, interpreted by myself: No acute disease, appropriate positioning of the endotracheal tube. Noncontrast CT scan of the brain: No acute disease, interpreted by radiology Critical Care Time: Yes Critical care time in (mins) excluding proc time.: 35 Critical care attestation.: If time is entered above; I have spent that time in minutes in the direct care of this critically ill patient, excluding procedure time. ED Disposition Clinical Impression: SIRS (systemic inflammatory response syndrome), Encephalopathy Disposition: [id number] OP ADMIT IP TO THIS HOSP Is pt being admited?: Yes Condition: Critical Referrals: JANETH HUIZAR MD [Primary Care Provider] - 3-5 Days
[2017-06-10 22:12] LABS: Basophils % (Auto) 0.2 % (0.0-1.8); Eosinophils # (Auto) 0.1 K/mm3 (0.0-0.4); Eosinophils % (Auto) 1.3 % (0.0-4.3); Hematocrit 40.3 % (35.5-45.6); Hemoglobin 13.1 gm/dl (11.8-15.2); Lymphocytes # (Auto) 0.5 K/mm3 (1.2-5.4); Lymphocytes % (Auto) 6.7 % (13.4-35.0); Mean Corpuscular HGB Conc 33 % (32-34); Mean Corpuscular Hemoglobin 31 pg (28-32); Mean Corpuscular Volume 95 fl (84-94); Monocytes % (Auto) 13.7 % (0.0-7.3); Red Blood Count 4.26 M/mm3 (3.65-5.03); Red Cell Distribution Width 14.1 % (13.2-15.2)
[2017-06-10 22:13] LABS: Bilirubin,Urine NEG (Negative); Blood,Urine SM (Negative); Color,Urine Yellow (Yellow); Mucus,Urine FEW /HPF; Nitrite,Urine NEG (Negative); Protein,Urine <15 mg/dL mg/dL (Negative); Urobilinogen,Urine < 2.0 mg/dL (<2.0)
[2017-06-10 22:13] LABS: Platelet Count 219 K/mm3 (140-440)
[2017-06-10 22:23] LABS: INR 0.91 (0.87-1.13)
[2017-06-10 22:29] LABS: Alanine Aminotransferase 10 units/L (7-56); Albumin 4.7 g/dL (3.9-5); BUN/Creatinine Ratio 8; Blood Urea Nitrogen 9 mg/dL (9-20); Calcium 9.5 mg/dL (8.4-10.2); Hemolysis Index 15
[2017-06-10] MEDS ORDERED: XYLOCAINE 2% INFILTRATI ONE (22:40)
[2017-06-10] MEDS ORDERED: ZOFRAN IV ONE (22:45)
[2017-06-10] MEDS ORDERED: ZOFRAN ONE (22:49)
--- NOTE | 2017-06-10 22:53 | Cat Scan Report ---
FINAL REPORT EXAM: CT HEAD/BRAIN WO CON HISTORY: Fever/Sepsis TECHNIQUE: CT was performed from the foramen magnum through the vertex in the axial plane without the use of intravenous contrast. PRIORS: None. FINDINGS: The leavitt/white matter attenuation pattern is normal. There is no mass lesion or mass effect. There are no abnormal extra-axial fluid collections. There is no evidence of acute intracranial hemorrhage or infarct. The ventricles are of normal size and configuration. The skull and orbits are unremarkable. The visualized paranasal sinuses are clear. IMPRESSION: Normal CT of the head.
--- NOTE | 2017-06-10 23:09 | XRay Report ---
FINAL REPORT EXAM: XR CHEST 1V AP HISTORY: FEVER/SEPSIS; ETT placement TECHNIQUE: AP portable view of the chest. PRIORS: None. FINDINGS: There is an endotracheal tube in place which appears adequately positioned in the mid to distal trachea. The cardiomediastinal silhouette appears normal. The lungs are clear. The bones and soft tissues are unremarkable. IMPRESSION: No evidence of acute cardiopulmonary disease. The endotracheal tube appears adequately positioned.
[2017-06-10] MEDS: ATIVAN 100 MG in NACL 0.9% 50 ML, VIAFLEX EMPTY CONTAINER 0 ML IV SCH (23:18)
[2017-06-10] MEDS: fentaNYL DRIP Premix 2,000 MCG/100 ML BAG IV SCH (23:19)
[2017-06-10] MEDS ORDERED: VANCOMYCIN PHARMACY TO DOSE IV SCH (23:45)
--- NOTE | 2017-06-10 23:46 | History and Physical Report ---
History of Present Illness Date of examination: 06/10/17 Chief complaint: Altered Mental status History of present illness: History is obtained from his , patient was not able to give history, was intubated and on mechanical ventilation. 31-year-old -[place] Citizen male who had flulike symptoms recently and was given tramadol and ciprofloxacin but yesterday patient feels tired and altered. Patient is febrile. When he presented to the emergency department it was not able to take care of his daily he was intubated immediately started on mechanical ventilation. His fever was 102 in the ED was a suspicion of meningitis, LP was tried unsuccessfully. Review of systems couldn't be obtained because of altered mental status and patient is intubated. Past History Past Medical History: No medical history (Per his , Patient is altered and on MV) Past Surgical History: No surgical history, Other (Per his , Patient is altered and on MV) Social history: full code (Per his , Patient is altered and on MV), other ( Per his , Patient is altered and on MV). denies: smoking, alcohol abuse, prescription drug abuse, IV drug use Family history: other (Per his , Patient is altered and on MV) Medications and Allergies Allergies Allergy/AdvReac Type Severity Reaction Status Date / Time diphenhydramine HCl Allergy Itching Verified 06/09/17 16:50 [facility] Home Medications Medication Instructions Recorded Confirmed Last Taken Type Cephalexin [Keflex] 500 mg PO QID #20 capsule 08/29/16 Unknown Rx HYDROcodone/APAP 5-325 [Gay 1 each PO Q6HR PRN #12 tablet 08/29/16 Unknown Rx 5/325] traMADol [Ultram] 50 mg PO Q6HR PRN #20 tablet 12/08/16 Unknown Rx Ciprofloxacin HCl [Cipro] 500 mg PO BID #14 tablet 06/09/17 Unknown Rx Naproxen 500 mg PO BID PRN #30 tablet 06/09/17 Unknown Rx traMADol [Ultram 50 MG tab] 50 mg PO Q6HR PRN #10 tablet 06/09/17 Unknown Rx Active Meds: Active Medications Hydrophilic Ointment (Vaseline Lip Therapy) 1 applic TP Q2HR PRN PRN Reason: Dry Lips Fentanyl Citrate (Fentanyl Drip Premix) 2,000 mcg in 100 mls @ 3.629 mls/hr IV TITR CRISTINA; 1 MCG/KG/HR PRN Reason: Protocol Last Admin: 06/10/17 23:19 Dose: 1 mcg/kg/hr, 3.629 mls/hr Lorazepam 100 mg/ Sodium Chloride/ Miscellaneous Information 100 mls @ 1 mls/ hr IV TITR CRISTINA; 1 MG/HR PRN Reason: Protocol Last Admin: 06/10/17 23:18 Dose: 1 mg/hr, 1 mls/hr Potassium Chloride (Kcl 10meq/100ml) 10 meq in 100 mls @ 100 mls/hr IV Q1H CRISTINA Stop: 06/11/17 02:59 Multi-Ingred Cream/Lotion/Oil/Oint (Artificial Tears Ophth Oint) 1 applic OU Q4HR PRN PRN Reason: Dry Eye(s) Sodium Chloride (Nacl 0.9% 500 Ml) 1 ml IV DIRECT CRISTINA Exam - Physical Exam Narrative exam: Patient is intubated and on mechanical ventilation The patient appeared well nourished and normally developed. Vital signs as documented. Head exam is unremarkable. No scleral icterus . Neck is without jugular venous distension, thyromegaly, or carotid bruits. Lungs are clear to auscultation. Cardiac exam reveals regular rate and Rhythm. First and second heart sounds normal. No murmurs, rubs or gallops. Abdominal exam reveals normal bowel sounds, no masses, no organomegaly and no aortic enlargement. Extremities are nonedematous and both femoral and pedal pulses are normal. 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 - Constitutional Vitals: Temp Pulse Resp BP Pulse Ox 102.5 F H 99 H 18 136/73 100 06/10/17 21:35 06/10/17 23:09 06/10/17 22:07 06/10/17 23:09 06/10/17 23:09 Results - Labs CBC & Chem 7: 06/10/17 21:52 06/10/17 21:52 Labs: Laboratory Last Values WBC 7.3 K/mm3 (4.5-11.0) 06/10/17 21:52 RBC 4.26 M/mm3 (3.65-5.03) 06/10/17 21:52 Hgb 13.1 gm/dl (11.8-15.2) 06/10/17 21:52 Hct 40.3 % (35.5-45.6) 06/10/17 21:52 MCV 95 fl (84-94) H 06/10/17 21:52 MCH 31 pg (28-32) 06/10/17 21:52 MCHC 33 % (32-34) 06/10/17 21:52 RDW 14.1 % (13.2-15.2) 06/10/17 21:52 Plt Count 219 K/mm3 (140-440) 06/10/17 21:52 Lymph % (Auto) 6.7 % (13.4-35.0) L 06/10/17 21:52 Ray % (Auto) 13.7 % (0.0-7.3) H 06/10/17 21:52 Eos % (Auto) 1.3 % (0.0-4.3) 06/10/17 21:52 Baso % (Auto) 0.2 % (0.0-1.8) 06/10/17 21:52 Lymph # 0.5 K/mm3 (1.2-5.4) L 06/10/17 21:52 Ray # 1.0 K/mm3 (0.0-0.8) H 06/10/17 21:52 Eos # 0.1 K/mm3 (0.0-0.4) 06/10/17 21:52 Baso # 0.0 K/mm3 (0.0-0.1) 06/10/17 21:52 Seg Neutrophils % 78.1 % (40.0-70.0) H 06/10/17 21:52 Seg Neutrophils # 5.7 K/mm3 (1.8-7.7) 06/10/17 21:52 PT 12.7 Sec. (12.2-14.9) 06/10/17 21:52 INR 0.91 (0.87-1.13) 06/10/17 21:52 POC ABG pH 7.435 (7.35-7.45) 06/10/17 23:11 POC ABG pCO2 29.8 (35-45) L 06/10/17 23:11 POC ABG pO2 261 (80-105) H 06/10/17 23:11 POC ABG HCO3 20.0 06/10/17 23:11 POC ABG Total CO2 21 06/10/17 23:11 POC ABG O2 Sat 100 06/10/17 23:11 POC ABG Base Excess -4 06/10/17 23:11 FiO2 50 % 06/10/17 23:11 Sodium 141 mmol/L (137-145) 06/10/17 21:52 Potassium 3.2 mmol/L (3.6-5.0) L D 06/10/17 21:52 Chloride 100.9 mmol/L (98-107) 06/10/17 21:52 Carbon Dioxide 22 mmol/L (22-30) 06/10/17 21:52 Anion Gap 21 mmol/L 06/10/17 21:52 BUN 9 mg/dL (9-20) 06/10/17 21:52 Creatinine 1.2 mg/dL (0.8-1.5) 06/10/17 21:52 Estimated GFR > 60 ml/min 06/10/17 21:52 BUN/Creatinine Ratio 8 % 06/10/17 21:52 Glucose 73 mg/dL (75-100) L 06/10/17 21:52 Lactic Acid 3.30 mmol/L (0.7-2.0) H* 06/10/17 21:52 Calcium 9.5 mg/dL (8.4-10.2) 06/10/17 21:52 Magnesium 1.80 mg/dL (1.7-2.3) 06/10/17 22:52 Total Bilirubin 0.90 mg/dL (0.1-1.2) 06/10/17 21:52 AST 17 units/L (5-40) 06/10/17 21:52 ALT 10 units/L (7-56) 06/10/17 21:52 Alkaline Phosphatase 48 units/L (35-129) 06/10/17 21:52 Total Creatine Kinase 166 units/L (55-170) 06/10/17 21:52 Troponin T < 0.010 ng/mL (0.00-0.029) 06/10/17 21:52 Total Protein 8.4 g/dL (6.3-8.2) H 06/10/17 21:52 Albumin 4.7 g/dL (3.9-5) 06/10/17 21:52 Albumin/Globulin Ratio 1.3 % 06/10/17 21:52 Urine Color Yellow (Yellow) 06/10/17 21:50 Urine Turbidity Clear (Clear) 06/10/17 21:50 Urine pH 5.0 (5.0-7.0) 06/10/17 21:50 Ur Specific [place] 1.019 (1.003-1.030) 06/10/17 21:50 Urine Protein <15 mg/dl mg/dL (Negative) 06/10/17 21:50 Urine Glucose (UA) Neg mg/dL (Negative) 06/10/17 21:50 Urine Ketones Neg mg/dL (Negative) 06/10/17 21:50 Urine Blood Sm (Negative) 06/10/17 21:50 Urine Nitrite Neg (Negative) 06/10/17 21:50 Urine Bilirubin Neg (Negative) 06/10/17 21:50 Urine Urobilinogen < 2.0 mg/dL (<2.0) 06/10/17 21:50 Ur Leukocyte Esterase Neg (Negative) 06/10/17 21:50 Urine WBC (Auto) 4.0 /HPF (0.0-6.0) 06/10/17 21:50 Urine RBC (Auto) 1.0 /HPF (0.0-6.0) 06/10/17 21:50 Urine Mucus Few /HPF 06/10/17 21:50 Salicylates < 0.3 mg/dL (2.8-20.0) L 06/10/17 21:52 Acetaminophen < 15.0 ug/mL (10.0-30.0) 06/10/17 21:52 Hypokalemia Assessment and Plan Assessment and plan: Sepsis Acute hypoxic respiratory failure ? Meningitis Acute metabolic encephalopathy/ infectious encephalopathy Hypokalemia ? Seizure On mechanical ventilation less than 96 hours - Patient is empirically on IV vancomycin, ceftriaxone, acyclovir - Patient is on Keppra - LP in the ED was unsuccessful so I put a consult for interventional radiology to do LP in the morning - ID consulted - Potassium repleted DVT prophylaxis -Heparin Disposition -Admit to ICU The high probability of a clinically significant, sudden or life threatening deterioration of the [neurology, respiratory] system(s) required my full and direct attention, intervention and personal management. The aggregate critical care time was [35] minutes. This time is in addition to time spent performing reported procedures but includes the following: [X] Data Review and interpretation [X] Patient assessment and monitoring of vital signs [X] Documentation [X] Medication orders and management Advance Directives: Yes VTE prophylaxis?: Chemical Plan of care discussed with patient/family: Yes
[2017-06-10] MEDS ORDERED: POTASSIUM CHLORIDE FEEDTUBE ONE (23:57)
[2017-06-11] MEDS ORDERED: VANCOMYCIN 1,500 MG in NACL 0.9% 500 ML 500 ML IV ONE
[2017-06-11] MEDS: KCL 10MEQ/100ML 10 MEQ/100 ML BAG IV SCH ×4 (01:28→04:38)
[2017-06-11] MEDS: PEPCID IV SCH ×3 (02:32→21:54)
[2017-06-11] MEDS: NACL 0.9% IV SCH ×2 (03:45→10:48)
[2017-06-11] MEDS: ZOVIRAX IV SCH ×2 (03:45→10:48)
--- NOTE | 2017-06-11 03:52 | XRay Report ---
FINAL REPORT EXAM: XR CHEST 1V AP HISTORY: follow up respiratory failure TECHNIQUE: A portable view of the chest was obtained and compared the study of 06/10/2017. FINDINGS: Heart size and mediastinum appear normal. The tip of the ET tube is in good position above the citlali. The lungs are clear. Pleural fluid is not seen. The bones and soft tissues well maintained. IMPRESSION: No acute process in the chest.
[2017-06-11] MEDS: D5/0.45NS 1,000 ML IV SCH ×2 (04:22→19:00)
[2017-06-11] MEDS: fentaNYL DRIP Premix 2,000 MCG/100 ML BAG IV SCH ×2 (05:39→18:47)
[2017-06-11] MEDS ORDERED: ZOVIRAX IV SCH (06:00)
[2017-06-11 06:11] LABS: BUN/Creatinine Ratio 7; Blood Urea Nitrogen 8 mg/dL (9-20); Hemolysis Index 76
[2017-06-11 06:16] LABS: Basophils % (Auto) 0.1 % (0.0-1.8); Eosinophils % (Auto) 0.1 % (0.0-4.3); Hematocrit 36.4 % (35.5-45.6); Hemoglobin 11.8 gm/dl (11.8-15.2); Lymphocytes % (Auto) 5.5 % (13.4-35.0); Mean Corpuscular HGB Conc 32 % (32-34); Mean Corpuscular Hemoglobin 31 pg (28-32); Mean Corpuscular Volume 97 fl (84-94); Mean Platelet Volume 8.9 fl (6-12); Monocytes % (Auto) 13.7 % (0.0-7.3); Platelet Count 191 K/mm3 (140-440); Red Blood Count 3.74 M/mm3 (3.65-5.03); Red Cell Distribution Width 14.6 % (13.2-15.2)
[2017-06-11 06:17] LABS: Lymphocytes # (Auto) 0.6 K/mm3 (1.2-5.4); Monocytes # (Auto) 1.4 K/mm3 (0.0-0.8)
[2017-06-11 06:44] LABS: Calcium 8.1 mg/dL (8.4-10.2)
[2017-06-11] MEDS ORDERED: ROCEPHIN/NS 2 GM/100 ML 2 GM/100 ML BAG IV SCH (10:00)
[2017-06-11] MEDS: cefTRIAXone 2 GM in NACL 0.9% 20 ML IV SCH ×2 (10:18→22:46)
[2017-06-11] MEDS: HEPARIN SUB-Q SCH ×2 (10:20→21:53)
[2017-06-11] MEDS: KEPPRA 1,000 MG/NS 0.75% 100ML 1,000 MG/100 ML BAG IV SCH ×2 (10:21→21:54)
--- NOTE | 2017-06-11 10:44 | Consultation ---
History of Present Illness - Reason for Consult Consult date: 06/11/17 r/o meningitis Requesting physician: ALBINA ALEJO - History of Present Illness 31 years of male with no known medical history; admitted on 06/10/17 due to unresponsiveness. 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 He then became in respiratory distress and passed out. Per girlfriend, he came to the ED on 06/09 due to severe bilateral hip pain. He was given tramadol, naproxen and cipro. He took cipro them before the itchiness started. Girlfriend denies any history of recent fever, sore throat, runny nose , sick contacts. He does not do drugs, ETOH or tobacco. Denies headache, blurred vision, ear or tooth pain. In the emergency room, initial temperature was 102.5, heart rate 105, respirations 12, O2 sat 100, blood pressure 182/109. Initial white count 7.3. Hemoglobin 13.1. Platelets 219. Creatinine 1.2. Lactic acid 3.3. LFTs were normal. Urinalysis was negative. CT of the head was unremarkable. Chest x- ray was negative. Patient was emergently intubated in the emergency room. Microbiology: Blood cultures: 06/10 ngtd Current Antimicrobials Ceftriaxone Vancomycin Acyclovir Previous Antimicrobials: Past History Past Medical History: No medical history (Per his , Patient is altered and on MV) Past Surgical History: No surgical history, Other (Per his , Patient is altered and on MV) Social history: full code (Per his , Patient is altered and on MV), other ( Per his , Patient is altered and on MV). denies: smoking, alcohol abuse, prescription drug abuse, IV drug use Family history: other (Per his , Patient is altered and on MV) Medications and Allergies Allergies Allergy/AdvReac Type Severity Reaction Status Date / Time diphenhydramine HCl Allergy Itching Verified 06/09/17 16:50 [From Benadjanial] Home Medications Medication Instructions Recorded Confirmed Last Taken Type traMADol [Ultram] 50 mg PO Q6HR PRN #20 tablet 12/08/16 06/11/17 Unknown Rx Ciprofloxacin HCl [Cipro] 500 mg PO BID #14 tablet 06/09/17 06/11/17 Unknown Rx Active Meds: Active Medications Acetaminophen (Tylenol) 650 mg PO Q4H PRN PRN Reason: Pain MILD(1-3)/Fever >100.5/HUDSON Famotidine (Pepcid) 20 mg IV BID [facility] Last Admin: 06/11/17 10:06 Dose: 20 mg Heparin Sodium (Porcine) (Heparin) 5,000 unit SUB-Q Q12HR CRISTINA Hydrophilic Ointment (Vaseline Lip Therapy) 1 applic TP Q2HR PRN PRN Reason: Dry Lips Fentanyl Citrate (Fentanyl Drip Premix) 2,000 mcg in 100 mls @ 3.629 mls/hr IV TITR CRISTINA; 1 MCG/KG/HR PRN Reason: Protocol Last Titration: 06/11/17 07:00 Dose: 2 mcg/kg/hr, 7.258 mls/hr Lorazepam 100 mg/ Sodium Chloride/ Miscellaneous Information 100 mls @ 1 mls/ hr IV TITR CRISTINA; 1 MG/HR PRN Reason: Protocol Last Titration: 06/11/17 07:00 Dose: 2 mg/hr, 2 mls/hr Dextrose/Sodium Chloride (D5/0.45ns) 1,000 mls @ 75 mls/hr IV DIRECT CRISTINA Last Admin: 06/11/17 04:22 Dose: 75 mls/hr Ceftriaxone Sodium 2 gm/ (Sodium Chloride) 20 mls @ 20 mls/10 min IV Q12HR [facility] Last Admin: 06/11/17 10:18 Dose: 20 mls/10 min Levetiracetam (Keppra 1,000 Mg/Ns 0.75% 100ml) 1,000 mg in 100 mls @ 400 mls/ hr IV Q12HR [facility] Last Admin: 06/11/17 10:21 Dose: 400 mls/hr Vancomycin HCl (Vancomycin/Ns 1 Gm/250 Ml) 1 gm in 250 mls @ 167.007 mls/hr IV Q8HR [facility] Acyclovir 700 mg/ Sodium (Chloride) 114 mls @ 121.8 mls/hr IV Q8H [facility] Multi-Ingred Cream/Lotion/Oil/Oint (Artificial Tears Ophth Oint) 1 applic OU Q4HR PRN PRN Reason: Dry Eye(s) Sodium Chloride (Nacl 0.9% 500 Ml) 1 ml IV DIRECT CRISTINA Vancomycin HCl (Vancomycin Pharmacy To Dose) 1 each IV PKCONSULT CRISTINA PRN Reason: Protocol Review of Systems ROS unobtainable: due to endotracheal tube All systems: negative Physical Examination - Physical Exam Narrative exam: General appearance: sedated on the vent Eyes: anicteric sclerae, moist conjunctivae; no lid-lag; slow reactive pupils HENT: Atraumatic; oropharynx +ETT Neck: Trachea midline; supple, no thyromegaly or lymphadenopathy Lungs: CTA CV: RRR, no murmurs Abdomen: Soft, non-tender; no masses or hepatosplenomegaly Extremities: No peripheral edema or extremity lymphadenopathy Skin: Normal temperature, turgor and texture; no rash, ulcers or subcutaneous nodules Psych: sedated Neuro: sedated Lines: - Constitutional Vitals: Vital Signs Temp Pulse Resp BP Pulse Ox 102.5 F H 83 10 L 122/74 100 06/10/17 22:00 06/11/17 10:15 06/11/17 10:15 06/11/17 10:15 06/11/17 10:15 Temperature -Last 24 Hours Temperature 102.5 F Temperature 102.5 F Results - Labs CBC & Chem 7: 06/11/17 05:25 06/11/17 05:25 Labs: Abnormal lab results 06/10/17 06/10/17 06/10/17 Range/Units 21:52 21:52 21:52 MCV 95 H (84-94) fl Lymph % (Auto) 6.7 L (13.4-35.0) % [place] % (Auto) 13.7 H (0.0-7.3) % Lymph # 0.5 L (1.2-5.4) K/mm3 [place] # 1.0 H (0.0-0.8) K/mm3 Seg Neutrophils % 78.1 H (40.0-70.0) % Seg Neutrophils # (1.8-7.7) K/mm3 POC ABG pCO2 (35-45) POC ABG pO2 (80-105) Potassium 3.2 L D (3.6-5.0) mmol/L Carbon Dioxide (22-30) mmol/L BUN (9-20) mg/dL Glucose 73 L (75-100) mg/dL Lactic Acid 3.30 H* (0.7-2.0) mmol/L Calcium (8.4-10.2) mg/dL Total Protein 8.4 H (6.3-8.2) g/dL Salicylates (2.8-20.0) mg/dL 06/10/17 06/10/17 06/11/17 Range/Units 21:52 23:11 00:33 MCV (84-94) fl Lymph % (Auto) (13.4-35.0) % [place] % (Auto) (0.0-7.3) % Lymph # (1.2-5.4) K/mm3 [place] # (0.0-0.8) K/mm3 Seg Neutrophils % (40.0-70.0) % Seg Neutrophils # (1.8-7.7) K/mm3 POC ABG pCO2 29.8 L (35-45) POC ABG pO2 261 H (80-105) Potassium (3.6-5.0) mmol/L Carbon Dioxide (22-30) mmol/L BUN (9-20) mg/dL Glucose (75-100) mg/dL Lactic Acid 2.80 H* (0.7-2.0) mmol/L Calcium (8.4-10.2) mg/dL Total Protein (6.3-8.2) g/dL Salicylates < 0.3 L (2.8-20.0) mg/dL 06/11/17 06/11/17 06/11/17 Range/Units 03:59 05:25 05:25 MCV 97 H (84-94) fl Lymph % (Auto) 5.5 L (13.4-35.0) % [place] % (Auto) 13.7 H (0.0-7.3) % Lymph # 0.6 L (1.2-5.4) K/mm3 [place] # 1.4 H (0.0-0.8) K/mm3 Seg Neutrophils % 80.6 H (40.0-70.0) % Seg Neutrophils # 8.2 H (1.8-7.7) K/mm3 POC ABG pCO2 31.4 L (35-45) POC ABG pO2 150 H (80-105) Potassium 5.2 H D (3.6-5.0) mmol/L Carbon Dioxide 18 L (22-30) mmol/L BUN 8 L (9-20) mg/dL Glucose 117 H (75-100) mg/dL Lactic Acid (0.7-2.0) mmol/L Calcium 8.1 L (8.4-10.2) mg/dL Total Protein (6.3-8.2) g/dL Salicylates (2.8-20.0) mg/dL 06/11/17 Range/Units 05:25 MCV (84-94) fl Lymph % (Auto) (13.4-35.0) % [place] % (Auto) (0.0-7.3) % Lymph # (1.2-5.4) K/mm3 [place] # (0.0-0.8) K/mm3 Seg Neutrophils % (40.0-70.0) % Seg Neutrophils # (1.8-7.7) K/mm3 POC ABG pCO2 (35-45) POC ABG pO2 (80-105) Potassium (3.6-5.0) mmol/L Carbon Dioxide (22-30) mmol/L BUN (9-20) mg/dL Glucose (75-100) mg/dL Lactic Acid 2.70 H* (0.7-2.0) mmol/L Calcium (8.4-10.2) mg/dL Total Protein (6.3-8.2) g/dL Salicylates (2.8-20.0) mg/dL Assessment and Plan Assessment: 1) SIRS: Present on admission, manifested by fever, tachycardia, increased lactate. Etiology UNCLEAR ? allergic reaction to cipro / tramadol ? influenza ? meningitis 2) Respiratory failure 3) Presumed severe allergic reaction to cipro/tramadol Plan: -follow-up blood cultures -obtain respiratory cultures, procalcitonin, C-reactive protein (CRP) -check influenza antigen PCR in nasopharinx -sent out -obtain lumbar punture for opening pressure and send CSF specimen for Gram stain and culture, glucose, protein, VDRL, HSV-PCR, cryptococcal antigen and culture -obtain HIV test, HIV-viral load -continue ceftriaxone, vancomycin and acyclovir -add tamiflu -treat for allergic reaction -droplet precautions Thank you Dr Alejo for your consultation, will follow up with you. Demetrice Diaz MD Infectious Diseases Specialist [facility] ([facility]) M [phone] O [phone]
--- NOTE | 2017-06-11 11:05 | XRay Report ---
SUPINE KUB: History: OG tube placement. Findings: The OG tube terminates in the body of the stomach. The abdominal gas pattern is unremarkable. No masses or organomegaly is identified and there is no gross evidence of free air or fluid. No significant soft tissue calcifications are noted. IMPRESSION: Normal study.
--- NOTE | 2017-06-11 13:53 | Consultation ---
History of Present Illness Consult date: 06/11/17 Requesting physician: VELMA GALVAN Reason for consult: other (sepsis, on mechanical ventilatory support, critical care management) History of present illness: History is obtained from his , patient was not able to give history, was intubated and on mechanical ventilation. 31-year-old -Turkish male who had flulike symptoms recently and was given tramadol and ciprofloxacin but yesterday patient feels tired and altered. Patient is febrile. When he presented to the emergency department it was not able to take care of his daily he was intubated immediately started on mechanical ventilation. His fever was 102 in the ED was a suspicion of meningitis, LP was tried unsuccessfully. Review of systems couldn't be obtained because of altered mental status and patient is intubated. Patient was seen and examined. Vitals, labs, medications, chart and imaging reviewed. at the bedside. he is about to get a spinal tap under fluorscopy. remains febrile, intubated and sedated. Past History Past Medical History: No medical history (Per his , Patient is altered and on MV) Past Surgical History: No surgical history, Other (Per his , Patient is altered and on MV) Social history: full code (Per his , Patient is altered and on MV), other ( Per his , Patient is altered and on MV). denies: smoking, alcohol abuse, prescription drug abuse, IV drug use Family history: other (Per his , Patient is altered and on MV) Medications and Allergies Allergies Allergy/AdvReac Type Severity Reaction Status Date / Time diphenhydramine HCl Allergy Itching Verified 06/09/17 16:50 [From Benadryl] Home Medications Medication Instructions Recorded Confirmed Last Taken Type traMADol [Ultram] 50 mg PO Q6HR PRN #20 tablet 12/08/16 06/11/17 Unknown Rx Ciprofloxacin HCl [Cipro] 500 mg PO BID #14 tablet 06/09/17 06/11/17 Unknown Rx Active Meds: Active Medications Acetaminophen (Tylenol) 650 mg PO Q4H PRN PRN Reason: Pain MILD(1-3)/Fever >100.5/HUDSON Famotidine (Pepcid) 20 mg IV BID CRISTINA Last Admin: 06/11/17 10:06 Dose: 20 mg Heparin Sodium (Porcine) (Heparin) 5,000 unit SUB-Q Q12HR [facility] Last Admin: 06/11/17 10:20 Dose: 5,000 unit Hydrophilic Ointment (Vaseline Lip Therapy) 1 applic TP Q2HR PRN PRN Reason: Dry Lips Fentanyl Citrate (Fentanyl Drip Premix) 2,000 mcg in 100 mls @ 3.629 mls/hr IV TITR CRISTNIA; 1 MCG/KG/HR PRN Reason: Protocol Last Titration: 06/11/17 07:00 Dose: 2 mcg/kg/hr, 7.258 mls/hr Lorazepam 100 mg/ Sodium Chloride/ Miscellaneous Information 100 mls @ 1 mls/ hr IV TITR CRISTINA; 1 MG/HR PRN Reason: Protocol Last Titration: 06/11/17 07:00 Dose: 2 mg/hr, 2 mls/hr Dextrose/Sodium Chloride (D5/0.45ns) 1,000 mls @ 75 mls/hr IV DIRECT [facility] Last Admin: 06/11/17 04:22 Dose: 75 mls/hr Ceftriaxone Sodium 2 gm/ (Sodium Chloride) 20 mls @ 20 mls/10 min IV Q12HR [facility] Last Admin: 06/11/17 10:18 Dose: 20 mls/10 min Levetiracetam (Keppra 1,000 Mg/Ns 0.75% 100ml) 1,000 mg in 100 mls @ 400 mls/ hr IV Q12HR [facility] Last Infusion: 06/11/17 10:49 Dose: Infused Vancomycin HCl (Vancomycin/Ns 1 Gm/250 Ml) 1 gm in 250 mls @ 167.007 mls/hr IV Q8HR [facility] Acyclovir 700 mg/ Sodium (Chloride) 114 mls @ 121.8 mls/hr IV Q8H [facility] Multi-Ingred Cream/Lotion/Oil/Oint (Artificial Tears Ophth Oint) 1 applic OU Q4HR PRN PRN Reason: Dry Eye(s) Oseltamivir Phosphate (Tamiflu) 75 mg PO BID [facility] Stop: 06/15/17 22:01 Sodium Chloride (Nacl 0.9% 500 Ml) 1 ml IV DIRECT CRISTINA Vancomycin HCl (Vancomycin Pharmacy To Dose) 1 each IV PKCONSULT CRISTINA PRN Reason: Protocol Review of Systems ROS unobtainable: due to endotracheal tube, due to mental status Physical Examination Vital signs: Vital Signs Temp Pulse Resp BP Pulse Ox 102.5 F H 105 H 12 192/109 100 06/10/17 21:35 06/10/17 21:35 06/10/17 21:35 06/10/17 21:35 06/10/17 21:35 Patient is intubated and on mechanical ventilation The patient appeared well nourished and normally developed. Vital signs as documented. Head exam is unremarkable. Atraumatic, normocephalic No scleral icterus, no pallor. Neck is without jugular venous distension, thyromegaly, or carotid bruits. Lungs : Good AE bilaterally, CTA Cardiac exam revealsSinus tachycardia, First and second heart sounds normal. No murmurs, rubs or gallops. Abdominal exam reveals normal bowel sounds, no masses, no organomegaly and no aortic enlargement. Extremities are non-edematous and both femoral and pedal pulses are normal, no cyanosis, no clubbing. [employer]: Sedated. unable to assess Results - Laboratory Findings CBC and BMP: 06/11/17 05:25 06/11/17 05:25 ABG POC ABG pH 7.380 (7.35-7.45) 06/11/17 03:59 POC ABG pCO2 31.4 (35-45) L 06/11/17 03:59 POC ABG pO2 150 (80-105) H 06/11/17 03:59 POC ABG HCO3 18.6 06/11/17 03:59 POC ABG Total CO2 20 06/11/17 03:59 POC ABG O2 Sat 99 06/11/17 03:59 PT/INR, D-dimer PT 12.7 Sec. (12.2-14.9) 06/10/17 21:52 INR 0.91 (0.87-1.13) 06/10/17 21:52 Abnormal lab findings: Abnormal Labs 06/10/17 06/10/17 06/10/17 21:52 21:52 21:52 MCV 95 H Lymph % (Auto) 6.7 L [place] % (Auto) 13.7 H Lymph # 0.5 L [place] # 1.0 H Seg Neutrophils % 78.1 H Seg Neutrophils # POC ABG pCO2 POC ABG pO2 Potassium 3.2 L D Carbon Dioxide BUN Glucose 73 L Lactic Acid 3.30 H* Calcium Total Protein 8.4 H Salicylates 06/10/17 06/10/17 06/11/17 21:52 23:11 00:33 MCV Lymph % (Auto) [place] % (Auto) Lymph # [place] # Seg Neutrophils % Seg Neutrophils # POC ABG pCO2 29.8 L POC ABG pO2 261 H Potassium Carbon Dioxide BUN Glucose Lactic Acid 2.80 H* Calcium Total Protein Salicylates < 0.3 L 06/11/17 06/11/17 06/11/17 03:59 05:25 05:25 MCV 97 H Lymph % (Auto) 5.5 L [place] % (Auto) 13.7 H Lymph # 0.6 L [place] # 1.4 H Seg Neutrophils % 80.6 H Seg Neutrophils # 8.2 H POC ABG pCO2 31.4 L POC ABG pO2 150 H Potassium 5.2 H D Carbon Dioxide 18 L BUN 8 L Glucose 117 H Lactic Acid Calcium 8.1 L Total Protein Salicylates 06/11/17 05:25 MCV Lymph % (Auto) [place] % (Auto) Lymph # [place] # Seg Neutrophils % Seg Neutrophils # POC ABG pCO2 POC ABG pO2 Potassium Carbon Dioxide BUN Glucose Lactic Acid 2.70 H* Calcium Total Protein Salicylates - Diagnostic Findings Chest x-ray: image reviewed (Unremarkable, no acute pulmonary infiltrates.) Assessment and Plan Sepsis Acute hypoxic respiratory failure on mechanical ventilatory support Meningitis Acute encephalopathy(toxic, metabolic) Possible drug-drug interaction Hypokalemia Seizure -Admit ICU - Continue with mechanical ventilatory support -VAP bundle addressed -Supplemental oxygen to kep O2 sats>90% -Continue with droplet precautions until spinal tap results are available -VTE prophylaxis -Stress ulcer prophylaxis -Anti-epileptic medications -Lung protective strategies -Awaiting spinal tap results, empirically being treated for community acquired meningitis, viral coverage added by ID -Sedation/Analgesia -Virgen catheter in this critically ill patient -Daily SAT/SBT -Avoid benzodiazepines - Replete electrolytes and monitor -Enteric feeding with glycemic control - updated at the bedside. -Discussed with RT The high probability of a clinically significant, sudden or life threatening deterioration of the [neurology, respiratory] system(s) required my full and direct attention, intervention and personal management. The aggregate critical care time was [65] minutes. This time is in addition to time spent performing reported procedures but includes the following: [X] Data Review and interpretation [X] Patient assessment and monitoring of vital signs [X] Documentation [X] Medication orders and management
[2017-06-11] MEDS: TAMIFLU PO SCH ×2 (14:16→21:54)
--- NOTE | 2017-06-11 15:32 | Fluoroscopy Report ---
FLUOROSCOPY LUMBAR PUNCTURE History: Altered mental status, seizures, fever. Description of procedure: Informed consent was obtained from a family member. Sterile technique was utilized. 1% lidocaine for skin anesthesia. Using fluoroscopy guidance, lumbar puncture was performed at at the L4-5 level. There was spontaneous return of clear CSF. The opening pressure was elevated measuring 32 cm of water. Approximately 9 cc of CSF fluid was collected in 4 tubes. No complications. Impression: Successful fluoroscopy guided lumbar puncture. The opening pressure was elevated measuring 32 cm water.
--- NOTE | 2017-06-11 15:37 | Procedure Note ---
Date of procedure: 06/11/17 Pre-op diagnosis: altered mental status, seizure Post-op diagnosis: same Procedure: flouro guided lumbar puncture Findings: see report Anesthesia: local Surgeon: ENID KAUFMAN Estimated blood loss: none Pathology: list (4 CSF tubes) Specimen disposition: to lab Condition: stable Disposition: floor
--- NOTE | 2017-06-11 15:43 | Progress Note ---
Assessment and Plan Assessment and plan: Sepsis. Present on admission, manifested by fever, tachycardia, increased lactate. Follow-up blood cultures and obtain respiratory cultures, procalcitonin, C-reactive protein (CRP) levels. Check influenza antigen PCR in nasopharynx. F/U lumbar punture for opening pressure and send CSF specimen for Gram stain and culture, glucose, protein, VDRL, HSV-PCR, cryptococcal antigen and culture. Obtain HIV test, HIV-viral load Continue ceftriaxone, vancomycin and acyclovir ID added tamiflu Acute hypoxemic respiratory failure. Continue mechanical ventilation per pulmonary. Presumed severe allergic reaction to cipro/tramadol History Interval history: Patient is intubated on mechanical ventilation. Hospitalist Physical - Constitutional Vitals: Temp Pulse Resp BP Pulse Ox 102.5 F H 76 12 126/74 100 06/10/17 22:00 06/11/17 13:30 06/11/17 13:30 06/11/17 13:30 06/11/17 13:30 General appearance: Present: no acute distress, well-nourished - EENT Eyes: Present: PERRL, EOM intact ENT: hearing intact, clear oral mucosa, dentition normal - Neck Neck: Present: supple, normal ROM - Respiratory Respiratory effort: normal Respiratory: bilateral: CTA - Cardiovascular Rhythm: regular Heart Sounds: Present: S1 & S2. Absent: gallop, rub - Extremities Extremities: no ischemia, No edema, Full ROM - Abdominal General gastrointestinal: soft, non-tender, non-distended, normal bowel sounds - Integumentary Integumentary: Present: clear, warm, dry - Neurologic Neurologic: CNII-XII intact, moves all extremities Results - Labs CBC & Chem 7: 06/11/17 05:25 06/11/17 05:25 Labs: Laboratory Last Values WBC 10.2 K/mm3 (4.5-11.0) 06/11/17 05:25 RBC 3.74 M/mm3 (3.65-5.03) 06/11/17 05:25 Hgb 11.8 gm/dl (11.8-15.2) 06/11/17 05:25 Hct 36.4 % (35.5-45.6) 06/11/17 05:25 MCV 97 fl (84-94) H 06/11/17 05:25 MCH 31 pg (28-32) 06/11/17 05:25 MCHC 32 % (32-34) 06/11/17 05:25 RDW 14.6 % (13.2-15.2) 06/11/17 05:25 Plt Count 191 K/mm3 (140-440) 06/11/17 05:25 Lymph % (Auto) 5.5 % (13.4-35.0) L 06/11/17 05:25 [place] % (Auto) 13.7 % (0.0-7.3) H 06/11/17 05:25 Eos % (Auto) 0.1 % (0.0-4.3) 06/11/17 05:25 Baso % (Auto) 0.1 % (0.0-1.8) 06/11/17 05:25 Lymph # 0.6 K/mm3 (1.2-5.4) L 06/11/17 05:25 [place] # 1.4 K/mm3 (0.0-0.8) H 06/11/17 05:25 Eos # 0.0 K/mm3 (0.0-0.4) 06/11/17 05:25 Baso # 0.0 K/mm3 (0.0-0.1) 06/11/17 05:25 Seg Neutrophils % 80.6 % (40.0-70.0) H 06/11/17 05:25 Seg Neutrophils # 8.2 K/mm3 (1.8-7.7) H 06/11/17 05:25 PT 12.7 Sec. (12.2-14.9) 06/10/17 21:52 INR 0.91 (0.87-1.13) 06/10/17 21:52 POC ABG pH 7.380 (7.35-7.45) 06/11/17 03:59 POC ABG pCO2 31.4 (35-45) L 06/11/17 03:59 POC ABG pO2 150 (80-105) H 06/11/17 03:59 POC ABG HCO3 18.6 06/11/17 03:59 POC ABG Total CO2 20 06/11/17 03:59 POC ABG O2 Sat 99 06/11/17 03:59 POC ABG Base Excess -7 06/11/17 03:59 FiO2 30 % 06/11/17 03:59 Sodium 139 mmol/L (137-145) 06/11/17 05:25 Potassium 5.2 mmol/L (3.6-5.0) H D 06/11/17 05:25 Chloride 106.7 mmol/L (98-107) 06/11/17 05:25 Carbon Dioxide 18 mmol/L (22-30) L 06/11/17 05:25 Anion Gap 20 mmol/L 06/11/17 05:25 BUN 8 mg/dL (9-20) L 06/11/17 05:25 Creatinine 1.2 mg/dL (0.8-1.5) 06/11/17 05:25 Estimated GFR > 60 ml/min 06/11/17 05:25 BUN/Creatinine Ratio 7 % 06/11/17 05:25 Glucose 117 mg/dL (75-100) H 06/11/17 05:25 Lactic Acid 2.70 mmol/L (0.7-2.0) H* 06/11/17 05:25 Calcium 8.1 mg/dL (8.4-10.2) L 06/11/17 05:25 Magnesium 1.80 mg/dL (1.7-2.3) 06/10/17 22:52 Total Bilirubin 0.90 mg/dL (0.1-1.2) 06/10/17 21:52 AST 17 units/L (5-40) 06/10/17 21:52 ALT 10 units/L (7-56) 06/10/17 21:52 Alkaline Phosphatase 48 units/L (35-129) 06/10/17 21:52 Total Creatine Kinase 166 units/L (55-170) 06/10/17 21:52 Troponin T < 0.010 ng/mL (0.00-0.029) 06/11/17 05:25 C-Reactive Protein 0.60 mg/dL (0.00-1.30) 06/11/17 05:25 Total Protein 8.4 g/dL (6.3-8.2) H 06/10/17 21:52 Albumin 4.7 g/dL (3.9-5) 06/10/17 21:52 Albumin/Globulin Ratio 1.3 % 06/10/17 21:52 Urine Color Yellow (Yellow) 06/10/17 21:50 Urine Turbidity Clear (Clear) 06/10/17 21:50 Urine pH 5.0 (5.0-7.0) 06/10/17 21:50 Ur Specific [place] 1.019 (1.003-1.030) 06/10/17 21:50 Urine Protein <15 mg/dl mg/dL (Negative) 06/10/17 21:50 Urine Glucose (UA) Neg mg/dL (Negative) 06/10/17 21:50 Urine Ketones Neg mg/dL (Negative) 06/10/17 21:50 Urine Blood Sm (Negative) 06/10/17 21:50 Urine Nitrite Neg (Negative) 06/10/17 21:50 Urine Bilirubin Neg (Negative) 06/10/17 21:50 Urine Urobilinogen < 2.0 mg/dL (<2.0) 06/10/17 21:50 Ur Leukocyte Esterase Neg (Negative) 06/10/17 21:50 Urine WBC (Auto) 4.0 /HPF (0.0-6.0) 06/10/17 21:50 Urine RBC (Auto) 1.0 /HPF (0.0-6.0) 06/10/17 21:50 Urine Mucus Few /HPF 06/10/17 21:50 Salicylates < 0.3 mg/dL (2.8-20.0) L 06/10/17 21:52 Acetaminophen < 15.0 ug/mL (10.0-30.0) 06/10/17 21:52
[2017-06-11 16:38] LABS: Appearance,CSF Clear; Red Blood Cell,CSF 3 /mm3 (0-0); White Blood Cell,CSF 2 /mm3 (1-10)
[2017-06-11 16:39] LABS: Total Cells Counted 56 /mm3
[2017-06-11] MEDS: ZOVIRAX 700 MG in NACL 0.9% 100 ML IV SCH ×2 (16:42→22:47)
[2017-06-11 16:45] LABS: Glucose,CSF 95 mg/dL
[2017-06-11] MEDS: VANCOMYCIN/NS 1 GM/250 ML 1 GM/250 ML BAG IV SCH ×2 (17:45→23:21)
[2017-06-11] MEDS: TYLENOL PO PRN (19:31)
[2017-06-12] MEDS ORDERED: VANCOMYCIN/NS 1 GM/250 ML 1 GM/250 ML BAG IV SCH (02:00)
--- NOTE | 2017-06-12 03:25 | XRay Report ---
FINAL REPORT EXAM: XR CHEST 1V AP HISTORY: follow up respiratory failure TECHNIQUE: A portable upright view of the chest was obtained and compared the study of 06/11/2017. FINDINGS: The heart size and mediastinum appear normal. The lungs are clear. Pleural fluid is not seen. The ET tube and NG tube appear in good position. The bones soft tissues are well maintained IMPRESSION: No acute process in the chest.
[2017-06-12] MEDS: TYLENOL PO PRN (03:34)
[2017-06-12] MEDS ORDERED: MOTRIN PO ONE (06:04)
[2017-06-12] MEDS: ATIVAN 100 MG in NACL 0.9% 50 ML, VIAFLEX EMPTY CONTAINER 0 ML IV SCH (06:05)
[2017-06-12] MEDS: ZOVIRAX 700 MG in NACL 0.9% 100 ML IV SCH (06:07)
[2017-06-12] MEDS ORDERED: TYLENOL PR ONE (08:20)
[2017-06-12] MEDS: D5/0.45NS 1,000 ML IV SCH ×2 (08:21→23:20)
[2017-06-12] MEDS: TYLENOL PR PRN ×3 (08:37→20:45)
[2017-06-12] MEDS: fentaNYL DRIP Premix 2,000 MCG/100 ML BAG IV SCH (08:43)
--- NOTE | 2017-06-12 09:54 | Progress Note ---
Assessment and Plan Assessment: 1) Sepsis: still high fever. Etiology likely multifactorial - Influenza A +/- allergic reaction to cipro / tramadol. No evidence of meningitis. CRP=0.6. HIV neg. 2) Respiratory failure: for airway protection / no evidence of consolidation on CXR 3) Presumed severe allergic reaction to cipro/tramadol Plan: -f/u respiratory cultures -continue ceftriaxone -stop vancomycin and acyclovir -continue tamiflu day 2 of 7 -treat for allergic reaction -droplet precautions -start weaning from vent - per pulmonary Thank you Dr Baca for your consultation, will follow up with you. Demetrice Diaz MD Infectious Diseases Specialist [facility] ([facility]) M [phone] O [phone] Subjective Date of service: 06/12/17 Principal diagnosis: sepsis Interval history: Remains intubated no pressors, still fever 102.7. Microbiology: Blood cultures: 06/10 ngtd Influenza A: positive CSF: 06/10 neg Urine: 06/10 neg Current Antimicrobials Ceftriaxone 06/11 Vancomycin 06/11 Acyclovir 06/11 Tamiflu 06/11 Previous Antimicrobials: Objective - Exam Narrative Exam: General appearance: sedated on the vent Eyes: anicteric sclerae, moist conjunctivae; no lid-lag; slow reactive pupils HENT: Atraumatic; oropharynx +ETT Neck: Trachea midline; supple, no thyromegaly or lymphadenopathy Lungs: CTA CV: RRR, no murmurs Abdomen: Soft, non-tender; no masses or hepatosplenomegaly Extremities: No peripheral edema or extremity lymphadenopathy Skin: Normal temperature, turgor and texture; no rash, ulcers or subcutaneous nodules Psych: sedated Neuro: sedated Lines: - Constitutional Vitals: Vital Signs Temp Pulse Resp BP Pulse Ox 101.7 F H 89 17 114/59 100 06/12/17 08:34 06/12/17 09:15 06/12/17 09:15 06/12/17 09:15 06/12/17 09:15 Temperature -Last 24 Hours Temperature 101.7 F Temperature 102.7 F Temperature 102.7 F Temperature 99.0 F Temperature 100.7 F - Labs CBC & Chem 7: 06/11/17 05:25 06/11/17 05:25 Labs: Abnormal lab results 06/12/17 06/12/17 Range/Units 04:30 08:29 POC ABG pO2 122 H (80-105) POC Glucose 106 H (70-105)
--- NOTE | 2017-06-12 11:06 | Progress Note ---
Assessment and Plan Assessment and plan: Sepsis. Present on admission, manifested by fever, tachycardia, increased lactate. Follow-up blood cultures. Etiology secondary to influenza A Continue ceftriaxone. Vancomycin and acyclovir discontinue per infectious disease Continue tamiflu day 2 of 7 Acute hypoxemic respiratory failure. Continue mechanical ventilation per pulmonary. Wean vent as tolerated Presumed severe allergic reaction to cipro/tramadol Continue Pepcid and add Solu-Medrol to the regimen. History Interval history: Patient is intubated on mechanical ventilation. Hospitalist Physical - Constitutional Vitals: Temp Pulse Resp BP Pulse Ox 101.7 F H 89 17 114/59 100 06/12/17 08:34 06/12/17 09:15 06/12/17 09:15 06/12/17 09:15 06/12/17 09:15 General appearance: Present: no acute distress, well-nourished - EENT Eyes: Present: PERRL, EOM intact ENT: hearing intact, clear oral mucosa, dentition normal - Neck Neck: Present: supple, normal ROM - Respiratory Respiratory effort: normal Respiratory: bilateral: CTA - Cardiovascular Rhythm: regular Heart Sounds: Present: S1 & S2. Absent: gallop, rub - Extremities Extremities: no ischemia, No edema, Full ROM - Abdominal General gastrointestinal: soft, non-tender, non-distended, normal bowel sounds - Integumentary Integumentary: Present: clear, warm, dry - Neurologic Neurologic: CNII-XII intact, moves all extremities Results - Labs CBC & Chem 7: 06/11/17 05:25 06/11/17 05:25 Labs: Laboratory Last Values WBC 10.2 K/mm3 (4.5-11.0) 06/11/17 05:25 RBC 3.74 M/mm3 (3.65-5.03) 06/11/17 05:25 Hgb 11.8 gm/dl (11.8-15.2) 06/11/17 05:25 Hct 36.4 % (35.5-45.6) 06/11/17 05:25 MCV 97 fl (84-94) H 06/11/17 05:25 MCH 31 pg (28-32) 06/11/17 05:25 MCHC 32 % (32-34) 06/11/17 05:25 RDW 14.6 % (13.2-15.2) 06/11/17 05:25 Plt Count 191 K/mm3 (140-440) 06/11/17 05:25 Lymph % (Auto) 5.5 % (13.4-35.0) L 06/11/17 05:25 [place] % (Auto) 13.7 % (0.0-7.3) H 06/11/17 05:25 Eos % (Auto) 0.1 % (0.0-4.3) 06/11/17 05:25 Baso % (Auto) 0.1 % (0.0-1.8) 06/11/17 05:25 Lymph # 0.6 K/mm3 (1.2-5.4) L 06/11/17 05:25 [place] # 1.4 K/mm3 (0.0-0.8) H 06/11/17 05:25 Eos # 0.0 K/mm3 (0.0-0.4) 06/11/17 05:25 Baso # 0.0 K/mm3 (0.0-0.1) 06/11/17 05:25 Seg Neutrophils % 80.6 % (40.0-70.0) H 06/11/17 05:25 Seg Neutrophils # 8.2 K/mm3 (1.8-7.7) H 06/11/17 05:25 PT 12.7 Sec. (12.2-14.9) 06/10/17 21:52 INR 0.91 (0.87-1.13) 06/10/17 21:52 POC ABG pH 7.360 (7.35-7.45) 06/12/17 04:30 POC ABG pCO2 41.9 (35-45) 06/12/17 04:30 POC ABG pO2 122 (80-105) H 06/12/17 04:30 POC ABG HCO3 23.7 06/12/17 04:30 POC ABG Total CO2 25 06/12/17 04:30 POC ABG O2 Sat 99 06/12/17 04:30 POC ABG Base Excess -2 06/12/17 04:30 FiO2 30 % 06/12/17 04:30 Sodium 139 mmol/L (137-145) 06/11/17 05:25 Potassium 5.2 mmol/L (3.6-5.0) H D 06/11/17 05:25 Chloride 106.7 mmol/L (98-107) 06/11/17 05:25 Carbon Dioxide 18 mmol/L (22-30) L 06/11/17 05:25 Anion Gap 20 mmol/L 06/11/17 05:25 BUN 8 mg/dL (9-20) L 06/11/17 05:25 Creatinine 1.2 mg/dL (0.8-1.5) 06/11/17 05:25 Estimated GFR > 60 ml/min 06/11/17 05:25 BUN/Creatinine Ratio 7 % 06/11/17 05:25 Glucose 117 mg/dL (75-100) H 06/11/17 05:25 POC Glucose 106 (70-105) H 06/12/17 08:29 Lactic Acid 2.70 mmol/L (0.7-2.0) H* 06/11/17 05:25 Calcium 8.1 mg/dL (8.4-10.2) L 06/11/17 05:25 Magnesium 1.80 mg/dL (1.7-2.3) 06/10/17 22:52 Total Bilirubin 0.90 mg/dL (0.1-1.2) 06/10/17 21:52 AST 17 units/L (5-40) 06/10/17 21:52 ALT 10 units/L (7-56) 06/10/17 21:52 Alkaline Phosphatase 48 units/L (35-129) 06/10/17 21:52 Total Creatine Kinase 166 units/L (55-170) 06/10/17 21:52 Troponin T < 0.010 ng/mL (0.00-0.029) 06/11/17 05:25 C-Reactive Protein 0.60 mg/dL (0.00-1.30) 06/11/17 05:25 Total Protein 8.4 g/dL (6.3-8.2) H 06/10/17 21:52 Albumin 4.7 g/dL (3.9-5) 06/10/17 21:52 Albumin/Globulin Ratio 1.3 % 06/10/17 21:52 Urine Color Yellow (Yellow) 06/10/17 21:50 Urine Turbidity Clear (Clear) 06/10/17 21:50 Urine pH 5.0 (5.0-7.0) 06/10/17 21:50 Ur Specific [place] 1.019 (1.003-1.030) 06/10/17 21:50 Urine Protein <15 mg/dl mg/dL (Negative) 06/10/17 21:50 Urine Glucose (UA) Neg mg/dL (Negative) 06/10/17 21:50 Urine Ketones Neg mg/dL (Negative) 06/10/17 21:50 Urine Blood Sm (Negative) 06/10/17 21:50 Urine Nitrite Neg (Negative) 06/10/17 21:50 Urine Bilirubin Neg (Negative) 06/10/17 21:50 Urine Urobilinogen < 2.0 mg/dL (<2.0) 06/10/17 21:50 Ur Leukocyte Esterase Neg (Negative) 06/10/17 21:50 Urine WBC (Auto) 4.0 /HPF (0.0-6.0) 06/10/17 21:50 Urine RBC (Auto) 1.0 /HPF (0.0-6.0) 06/10/17 21:50 Urine Mucus Few /HPF 06/10/17 21:50 CSF Appearance Clear 06/10/17 15:04 CSF Color Colorless 06/10/17 15:04 CSF WBC 2 /mm3 (1-10) 06/10/17 15:04 CSF RBC 3 /mm3 (0-0) 06/10/17 15:04 CSF Seg Neutrophils 3.6 % (0-6) 06/10/17 15:04 CSF Lymphocytes % 37.5 % (40-80) 06/10/17 15:04 CSF Reactive Lymphs Not Reportable 06/10/17 15:04 CSF Monocytes % 58.9 % (15-45) 06/10/17 15:04 CSF Eosinophils % Not Reportable 06/10/17 15:04 CSF Basophils Not Reportable 06/10/17 15:04 CSF Pathologist Review C 06/10/17 15:04 CSF Glucose 95 mg/dL 06/10/17 15:04 CSF Total Protein 27 mg/dL 06/10/17 15:04 Salicylates < 0.3 mg/dL (2.8-20.0) L 06/10/17 21:52 Acetaminophen < 15.0 ug/mL (10.0-30.0) 06/10/17 21:52 HIV 1&2 Antibody Rapid Non react (Non React) 06/11/17 23:39 HIV P24 Antigen Non react (Non React) 06/11/17 23:39
[2017-06-12] MEDS: HEPARIN SUB-Q SCH ×2 (11:50→22:55)
[2017-06-12] MEDS: PEPCID IV SCH ×2 (11:51→22:50)
[2017-06-12] MEDS: TAMIFLU PO SCH ×2 (11:52→23:10)
[2017-06-12] MEDS: KEPPRA 1,000 MG/NS 0.75% 100ML 1,000 MG/100 ML BAG IV SCH ×2 (11:53→22:50)
[2017-06-12] MEDS: cefTRIAXone 2 GM in NACL 0.9% 20 ML IV SCH (12:39)
[2017-06-12] MEDS ORDERED: MOTRIN PO PRN (16:59)
[2017-06-12] MEDS ORDERED: MOTRIN PO SCH (18:00)
--- NOTE | 2017-06-12 18:02 | Progress Note ---
Assessment and Plan Sepsis Acute hypoxic respiratory failure on mechanical ventilatory support Meningitis Acute encephalopathy(toxic, metabolic) Possible drug-drug interaction Hypokalemia Seizure -Admit ICU - Continue with mechanical ventilatory support -VAP bundle addressed -Supplemental oxygen to kep O2 sats>90% -Continue with droplet precautions until spinal tap results are available -VTE prophylaxis -Stress ulcer prophylaxis -Anti-epileptic medications -Lung protective strategies -Awaiting spinal tap results, empirically being treated for community acquired meningitis, viral coverage added by ID -Sedation/Analgesia -Virgen catheter in this critically ill patient -Daily SAT/SBT -Avoid benzodiazepines - Replete electrolytes and monitor -Enteric feeding with glycemic control - updated at the bedside. -Discussed with RT The high probability of a clinically significant, sudden or life threatening deterioration of the [neurology, respiratory] system(s) required my full and direct attention, intervention and personal management. The aggregate critical care time was [35] minutes. This time is in addition to time spent performing reported procedures but includes the following: [X] Data Review and interpretation [X] Patient assessment and monitoring of vital signs [X] Documentation [X] Medication orders and management Subjective Date of service: 06/12/17 Principal diagnosis: sepsis Interval history: Follow up for acute hypoxemic respiratory failure, sepsis, acute encephalopathy Patient was seen and examined. Vitals, labs, medications, cahrt reviewed. remains febrile. has been off sedation over the past 5 hours, remains encephalopathic. Will withdraw on painful stimuli. Objective - Exam Narrative Exam: General appearance: Off sedation but still encephalopathic. No ventilator dys-synchrony, on PSV 10/5 with spontaneous tidal volumes of 450 Eyes: anicteric sclerae, moist conjunctivae; no lid-lag; slow reactive pupils HENT: Atraumatic; oropharynx +ETT Neck: Trachea midline; supple, no thyromegaly or lymphadenopathy Lungs: CTA , Good AE bilaterally CV: RRR, no murmurs, no gallops, no rubs Abdomen: Soft, non-tender; no masses or hepatosplenomegaly Extremities: No peripheral edema or extremity lymphadenopathy Skin: Normal temperature, turgor and texture; no rash, ulcers or subcutaneous nodules Psych: sedated Neuro: sedated Vital Signs - 12hr 06/12/17 06/12/17 06/12/17 06:00 06:30 06:45 Temperature Pulse Rate 94 H 108 H 105 H Respiratory 28 H 15 23 Rate Blood Pressure 135/78 134/80 136/75 O2 Sat by Pulse 100 100 100 Oximetry 06/12/17 06/12/17 06/12/17 07:00 07:15 07:30 Temperature Pulse Rate 101 H 104 H 100 H Respiratory 26 H 15 21 Rate Blood Pressure 124/67 112/48 105/39 O2 Sat by Pulse 100 100 97 Oximetry 06/12/17 06/12/17 06/12/17 07:45 08:00 08:15 Temperature Pulse Rate 97 H 99 H 96 H Respiratory 17 21 16 Rate Blood Pressure 94/35 93/37 99/38 O2 Sat by Pulse 97 96 96 Oximetry 06/12/17 06/12/17 06/12/17 08:30 08:34 08:45 Temperature 101.7 F H Pulse Rate 92 H 94 H Respiratory 16 26 H Rate Blood Pressure 99/38 103/41 O2 Sat by Pulse 97 97 Oximetry 06/12/17 06/12/17 06/12/17 09:00 09:15 09:30 Temperature Pulse Rate 92 H 89 89 Respiratory 16 17 22 Rate Blood Pressure 106/46 114/59 121/69 O2 Sat by Pulse 100 100 Oximetry 06/12/17 06/12/17 06/12/17 09:45 10:00 10:15 Temperature Pulse Rate 92 H 95 H 93 H Respiratory 20 13 19 Rate Blood Pressure 124/74 132/77 132/79 O2 Sat by Pulse 97 100 Oximetry 06/12/17 06/12/17 06/12/17 10:30 10:45 11:00 Temperature Pulse Rate 90 89 91 H Respiratory 14 12 15 Rate Blood Pressure 129/77 126/72 127/79 O2 Sat by Pulse 100 100 Oximetry 06/12/17 06/12/17 06/12/17 11:15 11:30 11:45 Temperature Pulse Rate 90 98 H 120 H Respiratory 14 40 H 17 Rate Blood Pressure 137/79 138/83 141/90 O2 Sat by Pulse 100 100 98 Oximetry 06/12/17 06/12/17 06/12/17 11:57 12:00 12:15 Temperature 100.2 F H Pulse Rate 113 H 110 H Respiratory 22 14 Rate Blood Pressure 161/95 152/100 O2 Sat by Pulse 100 Oximetry 06/12/17 06/12/17 06/12/17 12:30 12:45 13:00 Temperature Pulse Rate 108 H 104 H 102 H Respiratory 10 L 11 L 6 L Rate Blood Pressure 144/95 141/88 145/88 O2 Sat by Pulse 100 100 100 Oximetry 06/12/17 06/12/17 06/12/17 13:15 13:30 13:45 Temperature Pulse Rate 106 H 102 H 105 H Respiratory 8 L 20 18 Rate Blood Pressure 139/97 147/94 161/98 O2 Sat by Pulse 100 100 100 Oximetry 06/12/17 06/12/17 06/12/17 13:59 14:00 14:15 Temperature 102.3 F H Pulse Rate 108 H 105 H Respiratory 37 H 24 Rate Blood Pressure 159/98 154/96 O2 Sat by Pulse 100 94 Oximetry 06/12/17 06/12/17 06/12/17 14:30 14:45 15:00 Temperature Pulse Rate 104 H 107 H 103 H Respiratory 45 H 49 H 51 H Rate Blood Pressure 151/94 162/97 156/97 O2 Sat by Pulse 100 100 96 Oximetry 06/12/17 06/12/17 06/12/17 15:15 15:30 15:45 Temperature Pulse Rate 104 H 102 H 100 H Respiratory 43 H 44 H 20 Rate Blood Pressure 155/97 151/93 151/91 O2 Sat by Pulse 92 100 73 L Oximetry 06/12/17 06/12/17 06/12/17 16:00 16:15 16:30 Temperature Pulse Rate 112 H 105 H 113 H Respiratory 15 17 33 H Rate Blood Pressure 150/90 150/93 164/93 O2 Sat by Pulse 100 100 Oximetry Neurologic: unable to assess CBC and BMP: 06/11/17 05:25 06/11/17 05:25 ABG, PT/INR, D-dimer: ABG POC ABG pH 7.360 (7.35-7.45) 06/12/17 04:30 POC ABG pCO2 41.9 (35-45) 06/12/17 04:30 POC ABG pO2 122 (80-105) H 06/12/17 04:30 POC ABG HCO3 23.7 06/12/17 04:30 POC ABG Total CO2 25 06/12/17 04:30 POC ABG O2 Sat 99 06/12/17 04:30 PT/INR, D-dimer PT 12.7 Sec. (12.2-14.9) 06/10/17 21:52 INR 0.91 (0.87-1.13) 06/10/17 21:52 Abnormal lab findings: Abnormal Labs 06/10/17 06/10/17 06/10/17 21:52 21:52 21:52 MCV 95 H Lymph % (Auto) 6.7 L [place] % (Auto) 13.7 H Lymph # 0.5 L [place] # 1.0 H Seg Neutrophils % 78.1 H Seg Neutrophils # POC ABG pCO2 POC ABG pO2 Potassium 3.2 L D Carbon Dioxide BUN Glucose 73 L POC Glucose Lactic Acid 3.30 H* Calcium Total Protein 8.4 H Salicylates 06/10/17 06/10/17 06/11/17 21:52 23:11 00:33 MCV Lymph % (Auto) [place] % (Auto) Lymph # [place] # Seg Neutrophils % Seg Neutrophils # POC ABG pCO2 29.8 L POC ABG pO2 261 H Potassium Carbon Dioxide BUN Glucose POC Glucose Lactic Acid 2.80 H* Calcium Total Protein Salicylates < 0.3 L 06/11/17 06/11/17 06/11/17 03:59 05:25 05:25 MCV 97 H Lymph % (Auto) 5.5 L [place] % (Auto) 13.7 H Lymph # 0.6 L [place] # 1.4 H Seg Neutrophils % 80.6 H Seg Neutrophils # 8.2 H POC ABG pCO2 31.4 L POC ABG pO2 150 H Potassium 5.2 H D Carbon Dioxide 18 L BUN 8 L Glucose 117 H POC Glucose Lactic Acid Calcium 8.1 L Total Protein Salicylates 06/11/17 06/12/17 06/12/17 05:25 04:30 08:29 MCV Lymph % (Auto) [place] % (Auto) Lymph # [place] # Seg Neutrophils % Seg Neutrophils # POC ABG pCO2 POC ABG pO2 122 H Potassium Carbon Dioxide BUN Glucose POC Glucose 106 H Lactic Acid 2.70 H* Calcium Total Protein Salicylates Allied health notes reviewed: RT (Continue daily SBTs as tolerated)
[2017-06-12] MEDS: VASELINE LIP THERAPY TP PRN (23:15)
[2017-06-13] MEDS: VASELINE LIP THERAPY TP PRN (01:26)
[2017-06-13] MEDS: fentaNYL DRIP Premix 2,000 MCG/100 ML BAG IV SCH ×2 (02:12→12:51)
[2017-06-13] MEDS: D5/0.45NS 1,000 ML IV SCH (02:15)
--- NOTE | 2017-06-13 03:09 | XRay Report ---
FINAL REPORT EXAM: XR CHEST 1V AP HISTORY: follow up respiratory failure COMPARISON: June 12, 2017. FINDINGS: Frontal view(s) of the chest obtained. Cardiac silhouette within normal limits. No gross consolidation or effusion. No pneumothorax. ETT is present. Distal tip stable in position at the level clavicular heads. This approximately 6 centimeters from the citlali. Distal tip of the NG tube not visualized but extends at least to the mid stomach similar prior study. IMPRESSION: ETT and NG tube in gross satisfactory position. No gross focal consolidation.
[2017-06-13 07:29] LABS: Basophils % (Auto) 0.3 % (0.0-1.8); Hematocrit 36.5 % (35.5-45.6); Hemoglobin 12.4 gm/dl (11.8-15.2); Lymphocytes # (Auto) 0.6 K/mm3 (1.2-5.4); Lymphocytes % (Auto) 9.8 % (13.4-35.0); Mean Corpuscular HGB Conc 34 % (32-34); Mean Corpuscular Hemoglobin 32 pg (28-32); Mean Corpuscular Volume 93 fl (84-94); Monocytes # (Auto) 0.5 K/mm3 (0.0-0.8); Monocytes % (Auto) 8.2 % (0.0-7.3); Platelet Count 164 K/mm3 (140-440); Red Blood Count 3.93 M/mm3 (3.65-5.03); Red Cell Distribution Width 13.8 % (13.2-15.2)
[2017-06-13 07:47] LABS: BUN/Creatinine Ratio 11; Blood Urea Nitrogen 12 mg/dL (9-20); Calcium 8.4 mg/dL (8.4-10.2); Hemolysis Index 7
[2017-06-13] MEDS: PEPCID IV SCH ×2 (09:34→23:28)
[2017-06-13] MEDS: KEPPRA 1,000 MG/NS 0.75% 100ML 1,000 MG/100 ML BAG IV SCH ×2 (09:39→23:28)
[2017-06-13] MEDS: HEPARIN SUB-Q SCH ×2 (09:42→23:28)
[2017-06-13] MEDS: cefTRIAXone 2 GM in NACL 0.9% 20 ML IV SCH (10:32)
[2017-06-13] MEDS: TAMIFLU PO SCH ×2 (10:42→23:40)
--- NOTE | 2017-06-13 10:51 | Progress Note ---
Assessment and Plan Sepsis Acute hypoxic respiratory failure on mechanical ventilatory support Meningitis Acute encephalopathy (toxic, metabolic) Possible drug-drug interaction Hypokalemia Seizure - schedule seroquel and wean fentanyl thereafter - PSV trials once less agitated and can lighten sedation - Continue with mechanical ventilatory support - VAP bundle addressed - supplemental oxygen to kep O2 sats>90% - Continue with droplet precautions until spinal tap results are available - VTE prophylaxis - Stress ulcer prophylaxis - Anti-epileptic medications (on Keppra) - continue lung protective strategies - CSF unremarkable; continue anti-infectives and precautions per ID - Virgen catheter in this critically ill patient - Daily SAT/SBT - Avoid benzodiazepines - Replete electrolytes and monitor - begin enteric feeding with glycemic control - Discussed with RT ....34' CCT Subjective Date of service: 06/13/17 Principal diagnosis: Acute hypoxic respiratory failure on MVS; Possible Meningitis; AMS Interval history: Patient is seen today for: Acute hypoxic respiratory failure on MVS; Possible Meningitis; Acute encephalopathy (toxic, metabolic) Seen and examined at bedside; 24hour events reviewed; nursing and respiratory care staff consulted; no adverse overnight events reported to me; remains on MVS ; on fentanyl drip at 4 mics/kg/hr; still with intermittent agitation; remains on Keppra and no repeat seizures; attempts to follow some commands Objective Vital Signs - 12hr 06/12/17 06/12/17 06/12/17 23:15 23:27 23:30 Temperature Pulse Rate 71 75 69 Pulse Rate [ Dorsalis Pedis] Pulse Rate [ Radial] Respiratory 11 L 12 12 Rate Blood Pressure 137/88 137/88 124/72 Blood Pressure [Left] O2 Sat by Pulse 100 100 100 Oximetry 06/12/17 06/12/17 06/13/17 23:43 23:45 00:00 Temperature Pulse Rate 73 70 74 Pulse Rate [ 90 Dorsalis Pedis] Pulse Rate [ 90 Radial] Respiratory 12 12 Rate Blood Pressure 124/72 124/72 115/70 Blood Pressure [Left] O2 Sat by Pulse 100 100 100 Oximetry 06/13/17 06/13/17 06/13/17 00:15 00:30 00:45 Temperature Pulse Rate 69 68 68 Pulse Rate [ Dorsalis Pedis] Pulse Rate [ Radial] Respiratory 12 12 12 Rate Blood Pressure 115/70 121/76 121/76 Blood Pressure [Left] O2 Sat by Pulse 100 100 100 Oximetry 06/13/17 06/13/17 06/13/17 01:00 01:15 01:31 Temperature Pulse Rate 91 H 102 H 103 H Pulse Rate [ Dorsalis Pedis] Pulse Rate [ Radial] Respiratory 12 15 11 L Rate Blood Pressure 129/75 121/76 130/89 Blood Pressure [Left] O2 Sat by Pulse 100 99 100 Oximetry 06/13/17 06/13/17 06/13/17 01:45 02:00 02:01 Temperature Pulse Rate 66 77 Pulse Rate [ 86 Dorsalis Pedis] Pulse Rate [ 86 Radial] Respiratory 12 12 16 Rate Blood Pressure 121/76 146/92 Blood Pressure [Left] O2 Sat by Pulse 100 100 100 Oximetry 06/13/17 06/13/17 06/13/17 02:15 02:30 02:45 Temperature Pulse Rate 69 72 65 Pulse Rate [ Dorsalis Pedis] Pulse Rate [ Radial] Respiratory 12 13 18 Rate Blood Pressure 146/92 123/75 123/75 Blood Pressure [Left] O2 Sat by Pulse 100 100 100 Oximetry 06/13/17 06/13/17 06/13/17 02:50 03:00 03:15 Temperature 99.4 F Pulse Rate 60 69 Pulse Rate [ Dorsalis Pedis] Pulse Rate [ Radial] Respiratory 19 16 Rate Blood Pressure 123/75 126/77 Blood Pressure [Left] O2 Sat by Pulse 100 100 Oximetry 06/13/17 06/13/17 06/13/17 03:30 03:45 03:56 Temperature Pulse Rate 100 H 64 63 Pulse Rate [ Dorsalis Pedis] Pulse Rate [ Radial] Respiratory 17 17 Rate Blood Pressure 149/83 149/83 149/83 Blood Pressure [Left] O2 Sat by Pulse 100 100 99 Oximetry 06/13/17 06/13/17 06/13/17 04:00 04:15 04:30 Temperature Pulse Rate 71 64 65 Pulse Rate [ 78 Dorsalis Pedis] Pulse Rate [ 78 Radial] Respiratory 12 12 12 Rate Blood Pressure 145/84 149/83 129/81 Blood Pressure [Left] O2 Sat by Pulse 100 100 100 Oximetry 06/13/17 06/13/17 06/13/17 04:45 05:00 05:15 Temperature Pulse Rate 93 H 62 61 Pulse Rate [ Dorsalis Pedis] Pulse Rate [ Radial] Respiratory 12 12 11 L Rate Blood Pressure 149/83 132/81 132/81 Blood Pressure [Left] O2 Sat by Pulse 100 100 100 Oximetry 06/13/17 06/13/17 06/13/17 05:30 05:45 06:00 Temperature Pulse Rate 62 60 71 Pulse Rate [ 68 Dorsalis Pedis] Pulse Rate [ 68 Radial] Respiratory 13 16 14 Rate Blood Pressure 121/73 121/73 135/82 Blood Pressure [Left] O2 Sat by Pulse 99 100 100 Oximetry 06/13/17 06/13/17 06/13/17 06:15 06:30 06:45 Temperature Pulse Rate 59 L 73 59 L Pulse Rate [ Dorsalis Pedis] Pulse Rate [ Radial] Respiratory 13 12 13 Rate Blood Pressure 135/82 142/90 142/90 Blood Pressure [Left] O2 Sat by Pulse 100 100 100 Oximetry 06/13/17 06/13/17 06/13/17 07:00 07:05 07:15 Temperature 99.1 F Pulse Rate 85 66 64 Pulse Rate [ Dorsalis Pedis] Pulse Rate [ 66 Radial] Respiratory 10 L 12 12 Rate Blood Pressure 144/91 144/91 Blood Pressure 144/91 [Left] O2 Sat by Pulse 100 100 100 Oximetry 06/13/17 06/13/17 06/13/17 07:30 07:45 08:00 Temperature Pulse Rate 63 64 65 Pulse Rate [ Dorsalis Pedis] Pulse Rate [ Radial] Respiratory 12 12 12 Rate Blood Pressure 127/81 127/81 129/77 Blood Pressure [Left] O2 Sat by Pulse 100 100 100 Oximetry 06/13/17 06/13/17 06/13/17 08:03 08:15 08:30 Temperature Pulse Rate 65 63 95 H Pulse Rate [ Dorsalis Pedis] Pulse Rate [ Radial] Respiratory 12 12 Rate Blood Pressure 127/81 129/77 139/88 Blood Pressure [Left] O2 Sat by Pulse 99 100 100 Oximetry Constitutional: appears uncomfortable, other (sedated) Eyes: non-icteric ENT: oropharynx moist, other (ETT 23cm RABIA) Neck: supple, no lymphadenopathy, no JVD, other (no goiter) Effort: mildly labored Ascultation: Bilateral: diminished breath sounds, rhonchi (scant) Percussion: Bilateral: not dull Cardiovascular: regular rate and rhythm, other (No rubs or murmurs) Gastrointestinal: normoactive bowel sounds, soft, non-tender, non-distended, other (No palpable HSM) Integumentary: normal Extremities: no cyanosis, no edema, pulses normal, no ischemia or petechiae Neurologic: unable to assess Psychiatric: other (sedated) CBC and BMP: 06/14/17 08:52 06/14/17 08:52 ABG, PT/INR, D-dimer: ABG POC ABG pH 7.382 (7.35-7.45) 06/13/17 04:01 POC ABG pCO2 39.7 (35-45) 06/13/17 04:01 POC ABG pO2 128 (80-105) H 06/13/17 04:01 POC ABG HCO3 23.6 06/13/17 04:01 POC ABG Total CO2 25 06/13/17 04:01 POC ABG O2 Sat 99 06/13/17 04:01 PT/INR, D-dimer PT 12.7 Sec. (12.2-14.9) 06/10/17 21:52 INR 0.91 (0.87-1.13) 06/10/17 21:52 Abnormal lab findings: Abnormal Labs 06/10/17 06/10/17 06/10/17 21:52 21:52 21:52 MCV 95 H Lymph % (Auto) 6.7 L [place] % (Auto) 13.7 H Lymph # 0.5 L [place] # 1.0 H Seg Neutrophils % 78.1 H Seg Neutrophils # POC ABG pCO2 POC ABG pO2 Potassium 3.2 L D Carbon Dioxide BUN Glucose 73 L POC Glucose Lactic Acid 3.30 H* Calcium Total Protein 8.4 H Salicylates 06/10/17 06/10/17 06/11/17 21:52 23:11 00:33 MCV Lymph % (Auto) [place] % (Auto) Lymph # [place] # Seg Neutrophils % Seg Neutrophils # POC ABG pCO2 29.8 L POC ABG pO2 261 H Potassium Carbon Dioxide BUN Glucose POC Glucose Lactic Acid 2.80 H* Calcium Total Protein Salicylates < 0.3 L 06/11/17 06/11/17 06/11/17 03:59 05:25 05:25 MCV 97 H Lymph % (Auto) 5.5 L [place] % (Auto) 13.7 H Lymph # 0.6 L [place] # 1.4 H Seg Neutrophils % 80.6 H Seg Neutrophils # 8.2 H POC ABG pCO2 31.4 L POC ABG pO2 150 H Potassium 5.2 H D Carbon Dioxide 18 L BUN 8 L Glucose 117 H POC Glucose Lactic Acid Calcium 8.1 L Total Protein Salicylates 06/11/17 06/12/17 06/12/17 05:25 04:30 08:29 MCV Lymph % (Auto) [place] % (Auto) Lymph # [place] # Seg Neutrophils % Seg Neutrophils # POC ABG pCO2 POC ABG pO2 122 H Potassium Carbon Dioxide BUN Glucose POC Glucose 106 H Lactic Acid 2.70 H* Calcium Total Protein Salicylates 06/13/17 06/13/17 06/13/17 04:01 07:00 07:00 MCV Lymph % (Auto) 9.8 L [place] % (Auto) 8.2 H Lymph # 0.6 L [place] # Seg Neutrophils % 81.7 H Seg Neutrophils # POC ABG pCO2 POC ABG pO2 128 H Potassium Carbon Dioxide BUN Glucose 119 H POC Glucose Lactic Acid Calcium Total Protein Salicylates Chest x-ray: image reviewed Allied health notes reviewed: RT (Continue daily SBTs as tolerated)
--- NOTE | 2017-06-13 11:17 | Progress Note ---
Assessment and Plan Assessment: 1) Sepsis: fever trending down. Etiology likely multifactorial - Influenza A + /- allergic reaction -severe anaphylatic reaction due to cipro / tramadol. No evidence of meningitis. CRP=0.6. HIV neg. 2) Respiratory failure: for airway protection due to severe angioedema ? / no evidence of consolidation on CXR 3) Presumed severe allergic reaction / angiodema due to cipro/tramadol Plan: -continue ceftriaxone -continue tamiflu day 3 of 7 -treat for allergic reaction -continue steroids ? laryngeal edema - discussed with Dr Riggs Thank you Dr Baca for your consultation, will follow up with you. Demetrice Diaz MD Infectious Diseases Specialist [facility] M [phone] O [phone] Subjective Date of service: 06/13/17 Principal diagnosis: Acute hypoxic respiratory failure on MVS; Possible Meningitis; AMS Interval history: Remains intubated no pressors, still fever 101.4 Microbiology: Blood cultures: 06/10 ngtd Influenza A: positive CSF: 06/10 neg Urine: 06/10 neg Current Antimicrobials Ceftriaxone 06/11 Tamiflu 06/11 Previous Antimicrobials: Vancomycin 06/11 Acyclovir 06/11 Objective - Exam Narrative Exam: General appearance: sedated on the vent however eyes open, following commands Eyes: anicteric sclerae, moist conjunctivae; no lid-lag; slow reactive pupils HENT: Atraumatic; oropharynx +ETT Neck: Trachea midline; supple, no thyromegaly or lymphadenopathy Lungs: CTA CV: RRR, no murmurs Abdomen: Soft, non-tender; no masses or hepatosplenomegaly Extremities: No peripheral edema or extremity lymphadenopathy Skin: Normal temperature, turgor and texture; no rash, ulcers or subcutaneous nodules Psych: sedated Neuro: sedated Lines: - Constitutional Vitals: Vital Signs Temp Pulse Resp BP Pulse Ox 99.1 F 64 12 137/85 100 06/13/17 07:05 06/13/17 10:45 06/13/17 10:45 06/13/17 10:45 06/13/17 10:45 Temperature -Last 24 Hours Temperature 99.1 F Temperature 99.4 F Temperature 101.4 F Temperature 103.2 F Temperature 102.3 F Temperature 100.2 F - Labs CBC & Chem 7: 06/13/17 07:00 06/13/17 07:00 Labs: Abnormal lab results 06/13/17 06/13/17 06/13/17 Range/Units 04:01 07:00 07:00 Lymph % (Auto) 9.8 L (13.4-35.0) % [place] % (Auto) 8.2 H (0.0-7.3) % Lymph # 0.6 L (1.2-5.4) K/mm3 Seg Neutrophils % 81.7 H (40.0-70.0) % POC ABG pO2 128 H (80-105) Glucose 119 H (75-100) mg/dL
--- NOTE | 2017-06-13 12:58 | Progress Note ---
Assessment and Plan Assessment and plan: Sepsis. Present on admission, manifested by fever, tachycardia, increased lactate. Follow-up blood cultures. Etiology secondary to influenza A Continue ceftriaxone. Vancomycin and acyclovir discontinued per infectious disease Continue tamiflu day 3 of 7 Acute hypoxemic respiratory failure. Continue mechanical ventilation per pulmonary. Wean vent as tolerated Presumed severe allergic reaction to cipro/tramadol Continue Pepcid and Solu-Medrol to the regimen. ? Angioedema/laryngeal edema ? Seizure. Nursing reports questionable seizure on admission and posturing last evening. Check EEG. History Interval history: Patient is intubated on mechanical ventilation. Hospitalist Physical - Constitutional Vitals: Temp Pulse Resp BP Pulse Ox 98.4 F 87 12 131/82 98 06/13/17 11:00 06/13/17 11:00 06/13/17 11:00 06/13/17 11:00 06/13/17 11:00 General appearance: Present: no acute distress, well-nourished - EENT Eyes: Present: PERRL, EOM intact ENT: hearing intact, clear oral mucosa, dentition normal - Neck Neck: Present: supple, normal ROM - Respiratory Respiratory effort: normal Respiratory: bilateral: CTA - Cardiovascular Rhythm: regular Heart Sounds: Present: S1 & S2. Absent: gallop, rub - Extremities Extremities: no ischemia, No edema, Full ROM - Abdominal General gastrointestinal: soft, non-tender, non-distended, normal bowel sounds - Integumentary Integumentary: Present: clear, warm, dry - Neurologic Neurologic: CNII-XII intact, moves all extremities Results - Labs CBC & Chem 7: 06/13/17 07:00 06/13/17 07:00 Labs: Laboratory Last Values WBC 5.7 K/mm3 (4.5-11.0) 06/13/17 07:00 RBC 3.93 M/mm3 (3.65-5.03) 06/13/17 07:00 Hgb 12.4 gm/dl (11.8-15.2) 06/13/17 07:00 Hct 36.5 % (35.5-45.6) 06/13/17 07:00 MCV 93 fl (84-94) 06/13/17 07:00 MCH 32 pg (28-32) 06/13/17 07:00 MCHC 34 % (32-34) 06/13/17 07:00 RDW 13.8 % (13.2-15.2) 06/13/17 07:00 Plt Count 164 K/mm3 (140-440) 06/13/17 07:00 Lymph % (Auto) 9.8 % (13.4-35.0) L 06/13/17 07:00 [place] % (Auto) 8.2 % (0.0-7.3) H 06/13/17 07:00 Eos % (Auto) 0.0 % (0.0-4.3) 06/13/17 07:00 Baso % (Auto) 0.3 % (0.0-1.8) 06/13/17 07:00 Lymph # 0.6 K/mm3 (1.2-5.4) L 06/13/17 07:00 [place] # 0.5 K/mm3 (0.0-0.8) 06/13/17 07:00 Eos # 0.0 K/mm3 (0.0-0.4) 06/13/17 07:00 Baso # 0.0 K/mm3 (0.0-0.1) 06/13/17 07:00 Seg Neutrophils % 81.7 % (40.0-70.0) H 06/13/17 07:00 Seg Neutrophils # 4.7 K/mm3 (1.8-7.7) 06/13/17 07:00 PT 12.7 Sec. (12.2-14.9) 06/10/17 21:52 INR 0.91 (0.87-1.13) 06/10/17 21:52 POC ABG pH 7.382 (7.35-7.45) 06/13/17 04:01 POC ABG pCO2 39.7 (35-45) 06/13/17 04:01 POC ABG pO2 128 (80-105) H 06/13/17 04:01 POC ABG HCO3 23.6 06/13/17 04:01 POC ABG Total CO2 25 06/13/17 04:01 POC ABG O2 Sat 99 06/13/17 04:01 POC ABG Base Excess -2 06/13/17 04:01 FiO2 30 % 06/13/17 04:01 Sodium 139 mmol/L (137-145) 06/13/17 07:00 Potassium 4.0 mmol/L (3.6-5.0) D 06/13/17 07:00 Chloride 100.0 mmol/L (98-107) 06/13/17 07:00 Carbon Dioxide 25 mmol/L (22-30) D 06/13/17 07:00 Anion Gap 18 mmol/L 06/13/17 07:00 BUN 12 mg/dL (9-20) 06/13/17 07:00 Creatinine 1.1 mg/dL (0.8-1.5) 06/13/17 07:00 Estimated GFR > 60 ml/min 06/13/17 07:00 BUN/Creatinine Ratio 11 % 06/13/17 07:00 Glucose 119 mg/dL (75-100) H 06/13/17 07:00 POC Glucose 106 (70-105) H 06/12/17 08:29 Lactic Acid 2.70 mmol/L (0.7-2.0) H* 06/11/17 05:25 Calcium 8.4 mg/dL (8.4-10.2) 06/13/17 07:00 Magnesium 1.80 mg/dL (1.7-2.3) 06/10/17 22:52 Total Bilirubin 0.90 mg/dL (0.1-1.2) 06/10/17 21:52 AST 17 units/L (5-40) 06/10/17 21:52 ALT 10 units/L (7-56) 06/10/17 21:52 Alkaline Phosphatase 48 units/L (35-129) 06/10/17 21:52 Total Creatine Kinase 166 units/L (55-170) 06/10/17 21:52 Troponin T < 0.010 ng/mL (0.00-0.029) 06/11/17 05:25 C-Reactive Protein 0.60 mg/dL (0.00-1.30) 06/11/17 05:25 Total Protein 8.4 g/dL (6.3-8.2) H 06/10/17 21:52 Albumin 4.7 g/dL (3.9-5) 06/10/17 21:52 Albumin/Globulin Ratio 1.3 % 06/10/17 21:52 Urine Color Yellow (Yellow) 06/10/17 21:50 Urine Turbidity Clear (Clear) 06/10/17 21:50 Urine pH 5.0 (5.0-7.0) 06/10/17 21:50 Ur Specific [place] 1.019 (1.003-1.030) 06/10/17 21:50 Urine Protein <15 mg/dl mg/dL (Negative) 06/10/17 21:50 Urine Glucose (UA) Neg mg/dL (Negative) 06/10/17 21:50 Urine Ketones Neg mg/dL (Negative) 06/10/17 21:50 Urine Blood Sm (Negative) 06/10/17 21:50 Urine Nitrite Neg (Negative) 06/10/17 21:50 Urine Bilirubin Neg (Negative) 06/10/17 21:50 Urine Urobilinogen < 2.0 mg/dL (<2.0) 06/10/17 21:50 Ur Leukocyte Esterase Neg (Negative) 06/10/17 21:50 Urine WBC (Auto) 4.0 /HPF (0.0-6.0) 06/10/17 21:50 Urine RBC (Auto) 1.0 /HPF (0.0-6.0) 06/10/17 21:50 Urine Mucus Few /HPF 06/10/17 21:50 CSF Appearance Clear 06/10/17 15:04 CSF Color Colorless 06/10/17 15:04 CSF WBC 2 /mm3 (1-10) 06/10/17 15:04 CSF RBC 3 /mm3 (0-0) 06/10/17 15:04 CSF Seg Neutrophils 3.6 % (0-6) 06/10/17 15:04 CSF Lymphocytes % 37.5 % (40-80) 06/10/17 15:04 CSF Reactive Lymphs Not Reportable 06/10/17 15:04 CSF Monocytes % 58.9 % (15-45) 06/10/17 15:04 CSF Eosinophils % Not Reportable 06/10/17 15:04 CSF Basophils Not Reportable 06/10/17 15:04 CSF Pathologist Review C 06/10/17 15:04 CSF Glucose 95 mg/dL 06/10/17 15:04 CSF Total Protein 27 mg/dL 06/10/17 15:04 Salicylates < 0.3 mg/dL (2.8-20.0) L 06/10/17 21:52 Acetaminophen < 15.0 ug/mL (10.0-30.0) 06/10/17 21:52 HIV 1&2 Antibody Rapid Non react (Non React) 06/11/17 23:39 HIV P24 Antigen Non react (Non React) 06/11/17 23:39
[2017-06-13] MEDS ORDERED: SEROquel 50 MG, SEROquel 100 MG PO SCH (14:00)
[2017-06-13] MEDS ORDERED: VERSED IV ONE (17:23)
[2017-06-13] MEDS: MIDAZOLAM 100 MG in NACL 0.9% 80 ML IV SCH (18:30)
[2017-06-14] MEDS: D5/0.45NS 1,000 ML IV SCH (03:17)
--- NOTE | 2017-06-14 05:17 | XRay Report ---
FINAL REPORT PROCEDURE: XR CHEST 1V AP TECHNIQUE: Chest radiograph anteroposterior view. CPT 49080 HISTORY: follow up respiratory failure COMPARISON: No prior studies are available for comparison. FINDINGS: Heart: Normal. Mediastinum/Vessels: Normal. Lungs/Pleural space: Lungs are expanded and clear. There are no infiltrates, effusions or pneumothoraces.. Bony thorax: No acute osseous abnormality. Life support devices: Endotracheal tube is in the mid trachea. NG tube is in the stomach.. IMPRESSION: Normal heart and lungs. The ET tube and NG tube are in proper position..
[2017-06-14 08:59] LABS: Hematocrit 32.7 % (35.5-45.6); Hemoglobin 10.8 gm/dl (11.8-15.2); Mean Corpuscular HGB Conc 33 % (32-34); Mean Corpuscular Hemoglobin 31 pg (28-32); Mean Corpuscular Volume 93 fl (84-94); Platelet Count 160 K/mm3 (140-440); Red Blood Count 3.53 M/mm3 (3.65-5.03); Red Cell Distribution Width 13.8 % (13.2-15.2)
[2017-06-14 09:20] LABS: BUN/Creatinine Ratio 13; Blood Urea Nitrogen 12 mg/dL (9-20); Calcium 8.4 mg/dL (8.4-10.2); Hemolysis Index 12
--- NOTE | 2017-06-14 09:40 | Progress Note ---
Assessment and Plan Assessment: 1) Sepsis: resolved. Etiology likely multifactorial - Influenza A +/- allergic reaction -severe anaphylatic reaction due to cipro / tramadol. No evidence of meningitis. CRP=0.6. HIV neg. 2) Respiratory failure: for airway protection due to severe angioedema ? / no evidence of consolidation on CXR 3) Presumed severe allergic reaction / angiodema due to cipro/tramadol Plan: -continue ceftriaxone 4 of 7 -continue tamiflu day 4 of 7 -treat for allergic reaction -continue steroids ? laryngeal edema - discussed with Dr Keely johnson (fever resolved for 24h) I will be covering 06/15 and available over the phone on 06/16 please call me for questions. Thank you Dr Baca for your consultation, will follow up with you. Demetrice Diaz MD Infectious Diseases Specialist [facility] [phone] O [phone] Subjective Date of service: 06/14/17 Principal diagnosis: Acute hypoxic respiratory failure on MVS; Possible Meningitis; AMS Interval history: Remains intubated, no fever for 24h. Microbiology: Blood cultures: 06/10 ngtd Influenza A: positive CSF: 06/10 neg Urine: 06/10 neg Current Antimicrobials Ceftriaxone 06/11 Tamiflu 06/11 Previous Antimicrobials: Vancomycin 06/11 Acyclovir 06/11 Objective - Exam Narrative Exam: General appearance: alert on the vent eyes open, following commands Eyes: anicteric sclerae, moist conjunctivae; no lid-lag; slow reactive pupils HENT: Atraumatic; oropharynx +ETT Neck: Trachea midline; supple, no thyromegaly or lymphadenopathy Lungs: CTA CV: RRR, no murmurs Abdomen: Soft, non-tender; no masses or hepatosplenomegaly Extremities: No peripheral edema or extremity lymphadenopathy Skin: Normal temperature, turgor and texture; no rash, ulcers or subcutaneous nodules Psych: sedated Neuro: sedated Lines: - Constitutional Vitals: Vital Signs Temp Pulse Resp BP Pulse Ox 99.2 F 53 L 18 114/71 98 06/14/17 02:42 06/14/17 08:34 06/14/17 07:44 06/14/17 08:34 06/14/17 08:34 Temperature -Last 24 Hours Temperature 99.2 F Temperature 98.9 F Temperature 99.0 F Temperature 98.4 F - Labs CBC & Chem 7: 06/14/17 08:52 06/14/17 08:52 Labs: Abnormal lab results 06/14/17 06/14/17 06/14/17 Range/Units 04:07 08:52 08:52 WBC 4.1 L (4.5-11.0) K/mm3 RBC 3.53 L (3.65-5.03) M/mm3 Hgb 10.8 L (11.8-15.2) gm/dl Hct 32.7 L (35.5-45.6) % POC ABG pO2 151 H (80-105) Glucose 129 H (75-100) mg/dL
[2017-06-14] MEDS ORDERED: SODIUM BICARBONATE FEEDTUBE PRN (10:13)
[2017-06-14] MEDS ORDERED: SIMPLE SYRUP FEEDTUBE PRN ×2 (10:13)
[2017-06-14] MEDS ORDERED: PANCREAZE DR 10,500 UNIT FEEDTUBE PRN (10:13)
[2017-06-14] MEDS: cefTRIAXone 2 GM in NACL 0.9% 20 ML IV SCH (10:18)
[2017-06-14] MEDS: HEPARIN SUB-Q SCH (10:18)
[2017-06-14] MEDS: KEPPRA 1,000 MG/NS 0.75% 100ML 1,000 MG/100 ML BAG IV SCH ×2 (10:18→22:13)
[2017-06-14] MEDS: PEPCID IV SCH ×2 (10:19→22:13)
[2017-06-14] MEDS: TAMIFLU PO SCH ×2 (10:20→23:15)
--- NOTE | 2017-06-14 10:26 | Progress Note ---
Assessment and Plan Sepsis Acute hypoxic respiratory failure on mechanical ventilatory support Meningitis Acute encephalopathy (toxic, metabolic) Possible drug-drug interaction Hypokalemia Seizure - schedule seroquel and wean fentanyl thereafter - PSV trials once less agitated and can lighten sedation - Continue with mechanical ventilatory support - VAP bundle addressed - supplemental oxygen to kep O2 sats>90% - Continue with droplet precautions until spinal tap results are available - VTE prophylaxis - Stress ulcer prophylaxis - Anti-epileptic medications (on Keppra) - continue lung protective strategies - CSF unremarkable; continue anti-infectives and precautions per ID - Virgen catheter in this critically ill patient - Daily SAT/SBT - Avoid benzodiazepines - Replete electrolytes and monitor - begin enteric feeding with glycemic control - Discussed with RT Subjective Date of service: 06/14/17 Principal diagnosis: Acute hypoxic respiratory failure on MVS; Possible Meningitis; AMS Interval history: Patient is seen today for: Acute hypoxic respiratory failure on MVS; Possible Meningitis; Acute encephalopathy (toxic, metabolic) Seen and examined at bedside; 24hour events reviewed; nursing and respiratory care staff consulted; no adverse overnight events reported to me; remains on MVS ; Objective Vital Signs - 12hr 06/13/17 06/13/17 06/13/17 22:30 22:45 23:00 Temperature Pulse Rate 59 L 59 L 57 L Pulse Rate [ Radial] Respiratory 21 18 18 Rate Blood Pressure 100/51 97/47 98/58 O2 Sat by Pulse 99 99 100 Oximetry 06/13/17 06/13/17 06/13/17 23:15 23:30 23:45 Temperature Pulse Rate 55 L 54 L 79 Pulse Rate [ Radial] Respiratory 20 22 22 Rate Blood Pressure 100/51 106/63 106/63 O2 Sat by Pulse 100 100 100 Oximetry 06/14/17 06/14/17 06/14/17 00:00 00:15 00:30 Temperature Pulse Rate 55 L 61 62 Pulse Rate [ Radial] Respiratory 12 32 H 23 Rate Blood Pressure 106/67 106/63 99/53 O2 Sat by Pulse 100 100 100 Oximetry 06/14/17 06/14/17 06/14/17 00:45 00:56 01:00 Temperature Pulse Rate 66 Pulse Rate [ Radial] Respiratory 30 H 15 Rate Blood Pressure 99/53 117/48 99/53 O2 Sat by Pulse 99 97 99 Oximetry 06/14/17 06/14/17 06/14/17 01:15 01:30 01:45 Temperature Pulse Rate 56 L Pulse Rate [ Radial] Respiratory 18 24 17 Rate Blood Pressure 99/53 100/54 100/54 O2 Sat by Pulse 99 100 100 Oximetry 06/14/17 06/14/17 06/14/17 02:00 02:15 02:30 Temperature Pulse Rate 58 L 108 H 59 L Pulse Rate [ Radial] Respiratory 21 23 33 H Rate Blood Pressure 106/67 106/67 114/67 O2 Sat by Pulse 100 100 100 Oximetry 06/14/17 06/14/17 06/14/17 02:42 02:45 03:00 Temperature 99.2 F Pulse Rate 58 L 57 L Pulse Rate [ Radial] Respiratory 15 22 Rate Blood Pressure 114/67 111/67 O2 Sat by Pulse 100 100 Oximetry 06/14/17 06/14/17 06/14/17 03:15 03:30 03:45 Temperature Pulse Rate 57 L 60 60 Pulse Rate [ Radial] Respiratory 15 19 33 H Rate Blood Pressure 114/67 110/66 111/67 O2 Sat by Pulse 100 100 100 Oximetry 06/14/17 06/14/17 06/14/17 04:00 04:15 04:30 Temperature Pulse Rate 58 L 59 L 58 L Pulse Rate [ Radial] Respiratory 18 20 20 Rate Blood Pressure 101/58 101/58 101/58 O2 Sat by Pulse 100 100 100 Oximetry 06/14/17 06/14/17 06/14/17 04:45 05:00 05:15 Temperature Pulse Rate 57 L 52 L 54 L Pulse Rate [ Radial] Respiratory 20 28 H 23 Rate Blood Pressure 101/58 109/63 101/58 O2 Sat by Pulse 100 100 100 Oximetry 06/14/17 06/14/17 06/14/17 05:30 05:38 05:45 Temperature Pulse Rate Pulse Rate [ Radial] Respiratory 20 12 23 Rate Blood Pressure 102/58 102/58 O2 Sat by Pulse 100 100 Oximetry 06/14/17 06/14/17 06/14/17 06:00 06:15 06:30 Temperature Pulse Rate 109 H 53 L 52 L Pulse Rate [ Radial] Respiratory 36 H 12 13 Rate Blood Pressure 106/58 106/58 103/62 O2 Sat by Pulse 100 100 100 Oximetry 06/14/17 06/14/17 06/14/17 06:45 07:00 07:15 Temperature Pulse Rate 52 L 53 L 51 L Pulse Rate [ Radial] Respiratory 12 12 12 Rate Blood Pressure 103/62 102/60 103/62 O2 Sat by Pulse 100 100 100 Oximetry 06/14/17 06/14/17 06/14/17 07:30 07:44 07:45 Temperature Pulse Rate 51 L 50 L Pulse Rate [ Radial] Respiratory 12 18 12 Rate Blood Pressure 103/64 103/64 O2 Sat by Pulse 100 100 Oximetry 06/14/17 06/14/17 06/14/17 07:49 08:00 08:15 Temperature Pulse Rate 49 L 48 L Pulse Rate [ 52 L Radial] Respiratory 12 12 Rate Blood Pressure 105/64 105/64 O2 Sat by Pulse 100 100 Oximetry 06/14/17 06/14/17 06/14/17 08:22 08:30 08:34 Temperature Pulse Rate 48 L 54 L 53 L Pulse Rate [ Radial] Respiratory 11 L Rate Blood Pressure 105/64 114/71 114/71 O2 Sat by Pulse 100 100 98 Oximetry 06/14/17 06/14/17 06/14/17 08:45 09:00 09:15 Temperature Pulse Rate 49 L 49 L 54 L Pulse Rate [ Radial] Respiratory 17 12 12 Rate Blood Pressure 114/71 108/69 108/69 O2 Sat by Pulse 100 100 100 Oximetry 06/14/17 06/14/17 09:30 09:45 Temperature Pulse Rate 52 L 50 L Pulse Rate [ Radial] Respiratory 13 12 Rate Blood Pressure 122/76 122/76 O2 Sat by Pulse 97 100 Oximetry Constitutional: appears uncomfortable, other (sedated) Eyes: non-icteric ENT: oropharynx moist, other (ETT 23cm RABIA) Neck: supple, no lymphadenopathy, no JVD, other (no goiter) Effort: mildly labored Ascultation: Bilateral: diminished breath sounds, rhonchi (scant) Percussion: Bilateral: not dull Cardiovascular: regular rate and rhythm, other (No rubs or murmurs) Gastrointestinal: normoactive bowel sounds, soft, non-tender, non-distended, other (No palpable HSM) Integumentary: normal Extremities: no cyanosis, no edema, pulses normal, no ischemia or petechiae Neurologic: unable to assess Psychiatric: other (sedated) CBC and BMP: 06/14/17 08:52 06/14/17 08:52 ABG, PT/INR, D-dimer: ABG POC ABG pH 7.435 (7.35-7.45) 06/14/17 04:07 POC ABG pCO2 41.4 (35-45) 06/14/17 04:07 POC ABG pO2 151 (80-105) H 06/14/17 04:07 POC ABG HCO3 27.7 06/14/17 04:07 POC ABG Total CO2 29 06/14/17 04:07 POC ABG O2 Sat 99 06/14/17 04:07 PT/INR, D-dimer PT 12.7 Sec. (12.2-14.9) 06/10/17 21:52 INR 0.91 (0.87-1.13) 06/10/17 21:52 Abnormal lab findings: Abnormal Labs 06/10/17 06/10/17 06/10/17 21:52 21:52 21:52 WBC RBC Hgb Hct MCV 95 H Lymph % (Auto) 6.7 L [place] % (Auto) 13.7 H Lymph # 0.5 L [place] # 1.0 H Seg Neutrophils % 78.1 H Seg Neutrophils # POC ABG pCO2 POC ABG pO2 Potassium 3.2 L D Carbon Dioxide BUN Glucose 73 L POC Glucose Lactic Acid 3.30 H* Calcium Total Protein 8.4 H Salicylates 06/10/17 06/10/17 06/11/17 21:52 23:11 00:33 WBC RBC Hgb Hct MCV Lymph % (Auto) [place] % (Auto) Lymph # [place] # Seg Neutrophils % Seg Neutrophils # POC ABG pCO2 29.8 L POC ABG pO2 261 H Potassium Carbon Dioxide BUN Glucose POC Glucose Lactic Acid 2.80 H* Calcium Total Protein Salicylates < 0.3 L 06/11/17 06/11/17 06/11/17 03:59 05:25 05:25 WBC RBC Hgb Hct MCV 97 H Lymph % (Auto) 5.5 L [place] % (Auto) 13.7 H Lymph # 0.6 L [place] # 1.4 H Seg Neutrophils % 80.6 H Seg Neutrophils # 8.2 H POC ABG pCO2 31.4 L POC ABG pO2 150 H Potassium 5.2 H D Carbon Dioxide 18 L BUN 8 L Glucose 117 H POC Glucose Lactic Acid Calcium 8.1 L Total Protein Salicylates 06/11/17 06/12/17 06/12/17 05:25 04:30 08:29 WBC RBC Hgb Hct MCV Lymph % (Auto) [place] % (Auto) Lymph # [place] # Seg Neutrophils % Seg Neutrophils # POC ABG pCO2 POC ABG pO2 122 H Potassium Carbon Dioxide BUN Glucose POC Glucose 106 H Lactic Acid 2.70 H* Calcium Total Protein Salicylates 06/13/17 06/13/17 06/13/17 04:01 07:00 07:00 WBC RBC Hgb Hct MCV Lymph % (Auto) 9.8 L [place] % (Auto) 8.2 H Lymph # 0.6 L [place] # Seg Neutrophils % 81.7 H Seg Neutrophils # POC ABG pCO2 POC ABG pO2 128 H Potassium Carbon Dioxide BUN Glucose 119 H POC Glucose Lactic Acid Calcium Total Protein Salicylates 06/14/17 06/14/17 06/14/17 04:07 08:52 08:52 WBC 4.1 L RBC 3.53 L Hgb 10.8 L Hct 32.7 L MCV Lymph % (Auto) [place] % (Auto) Lymph # [place] # Seg Neutrophils % Seg Neutrophils # POC ABG pCO2 POC ABG pO2 151 H Potassium Carbon Dioxide BUN Glucose 129 H POC Glucose Lactic Acid Calcium Total Protein Salicylates Allied health notes reviewed: RT (Continue daily SBTs as tolerated)
[2017-06-14 10:29] LABS: Band Neutrophils # (Manual) 0.1 K/mm3; Basophils % (Manual) 0 % (0.0-1.8); Eosinophils % (Manual) 0 % (0.0-4.3); Platelet Estimate Consistent w Auto; RBC Morphology Normal; Total Cells Counted 100
[2017-06-14] MEDS ORDERED: ATIVAN IV PRN (11:20)
[2017-06-14] MEDS: ATIVAN IV PRN (12:23)
--- NOTE | 2017-06-14 13:56 | Progress Note ---
Assessment and Plan Assessment and plan: Sepsis. Follow-up blood cultures. Etiology secondary to influenza A Continue ceftriaxone. Vancomycin and acyclovir discontinued per infectious disease Continue tamiflu day 4 of 7 Acute hypoxemic respiratory failure. Continue mechanical ventilation per pulmonary. Wean vent as tolerated Presumed severe allergic reaction to cipro/tramadol Continue Pepcid and Solu-Medrol. ? Angioedema/laryngeal edema ? Seizure. Nursing reports questionable seizure on admission and posturing last evening. Check EEG. History Interval history: Patient is intubated on mechanical ventilation. Hospitalist Physical - Constitutional Vitals: Temp Pulse Resp BP Pulse Ox 99.2 F 125 H 16 169/92 100 06/14/17 02:42 06/14/17 12:29 06/14/17 12:47 06/14/17 12:29 06/14/17 12:29 General appearance: Present: no acute distress, well-nourished - EENT Eyes: Present: PERRL, EOM intact ENT: hearing intact, clear oral mucosa, dentition normal - Neck Neck: Present: supple, normal ROM - Respiratory Respiratory effort: normal Respiratory: bilateral: CTA - Cardiovascular Rhythm: regular Heart Sounds: Present: S1 & S2. Absent: gallop, rub - Extremities Extremities: no ischemia, No edema, Full ROM - Abdominal General gastrointestinal: soft, non-tender, non-distended, normal bowel sounds - Integumentary Integumentary: Present: clear, warm, dry - Neurologic Neurologic: CNII-XII intact, moves all extremities Results - Labs CBC & Chem 7: 06/14/17 08:52 06/14/17 08:52 Labs: Laboratory Last Values WBC 4.1 K/mm3 (4.5-11.0) L 06/14/17 08:52 RBC 3.53 M/mm3 (3.65-5.03) L 06/14/17 08:52 Hgb 10.8 gm/dl (11.8-15.2) L 06/14/17 08:52 Hct 32.7 % (35.5-45.6) L 06/14/17 08:52 MCV 93 fl (84-94) 06/14/17 08:52 MCH 31 pg (28-32) 06/14/17 08:52 MCHC 33 % (32-34) 06/14/17 08:52 RDW 13.8 % (13.2-15.2) 06/14/17 08:52 Plt Count 160 K/mm3 (140-440) 06/14/17 08:52 Lymph % (Auto) 9.8 % (13.4-35.0) L 06/13/17 07:00 [place] % (Auto) Licensed Staff Mft 06/14/17 08:52 Eos % (Auto) 0.0 % (0.0-4.3) 06/13/17 07:00 Baso % (Auto) 0.3 % (0.0-1.8) 06/13/17 07:00 Lymph # 0.6 K/mm3 (1.2-5.4) L 06/13/17 07:00 [place] # 0.5 K/mm3 (0.0-0.8) 06/13/17 07:00 Eos # 0.0 K/mm3 (0.0-0.4) 06/13/17 07:00 Baso # 0.0 K/mm3 (0.0-0.1) 06/13/17 07:00 Add Manual Diff Complete 06/14/17 08:52 Total Counted 100 06/14/17 08:52 Seg Neutrophils % 81.7 % (40.0-70.0) H 06/13/17 07:00 Seg Neuts % (Manual) 78.0 % (40.0-70.0) H 06/14/17 08:52 Band Neutrophils % 2.0 % 06/14/17 08:52 Lymphocytes % (Manual) 10.0 % (13.4-35.0) L 06/14/17 08:52 Reactive Lymphs % (Man) 0 % 06/14/17 08:52 Monocytes % (Manual) 10.0 % (0.0-7.3) H 06/14/17 08:52 Eosinophils % (Manual) 0 % (0.0-4.3) 06/14/17 08:52 Basophils % (Manual) 0 % (0.0-1.8) 06/14/17 08:52 Metamyelocytes % 0 % 06/14/17 08:52 Myelocytes % 0 % 06/14/17 08:52 Promyelocytes % 0 % 06/14/17 08:52 Blast Cells % 0 % 06/14/17 08:52 Nucleated RBC % Not Reportable 06/14/17 08:52 Seg Neutrophils # 4.7 K/mm3 (1.8-7.7) 06/13/17 07:00 Seg Neutrophils # Man 3.2 K/mm3 (1.8-7.7) 06/14/17 08:52 Band Neutrophils # 0.1 K/mm3 06/14/17 08:52 Lymphocytes # (Manual) 0.4 K/mm3 (1.2-5.4) L 06/14/17 08:52 Abs React Lymphs (Man) 0.0 K/mm3 06/14/17 08:52 Monocytes # (Manual) 0.4 K/mm3 (0.0-0.8) 06/14/17 08:52 Eosinophils # (Manual) 0.0 K/mm3 (0.0-0.4) 06/14/17 08:52 Basophils # (Manual) 0.0 K/mm3 (0.0-0.1) 06/14/17 08:52 Metamyelocytes # 0.0 K/mm3 06/14/17 08:52 Myelocytes # 0.0 K/mm3 06/14/17 08:52 Promyelocytes # 0.0 K/mm3 06/14/17 08:52 Blast Cells # 0.0 K/mm3 06/14/17 08:52 WBC Morphology Not Reportable 06/14/17 08:52 Hypersegmented Neuts Not Reportable 06/14/17 08:52 Hyposegmented Neuts Not Reportable 06/14/17 08:52 Hypogranular Neuts Not Reportable 06/14/17 08:52 Smudge Cells Not Reportable 06/14/17 08:52 Toxic Granulation Not Reportable 06/14/17 08:52 Toxic Vacuolation Not Reportable 06/14/17 08:52 Dohle Bodies Not Reportable 06/14/17 08:52 Pelger-Huet Anomaly Not Reportable 06/14/17 08:52 [place] Rods Not Reportable 06/14/17 08:52 Platelet Estimate Consistent w auto 06/14/17 08:52 Clumped Platelets Not Reportable 06/14/17 08:52 Plt Clumps, EDTA Not Reportable 06/14/17 08:52 Large Platelets Not Reportable 06/14/17 08:52 Giant Platelets Not Reportable 06/14/17 08:52 Platelet Satelliting Not Reportable 06/14/17 08:52 Plt Morphology Comment Not Reportable 06/14/17 08:52 RBC Morphology Normal 06/14/17 08:52 Dimorphic RBCs Not Reportable 06/14/17 08:52 Polychromasia Not Reportable 06/14/17 08:52 Hypochromasia Not Reportable 06/14/17 08:52 Poikilocytosis Not Reportable 06/14/17 08:52 Anisocytosis Not Reportable 06/14/17 08:52 Microcytosis Not Reportable 06/14/17 08:52 Macrocytosis Not Reportable 06/14/17 08:52 Spherocytes Not Reportable 06/14/17 08:52 Pappenheimer Bodies Not Reportable 06/14/17 08:52 Sickle Cells Not Reportable 06/14/17 08:52 Target Cells Not Reportable 06/14/17 08:52 Tear Drop Cells Not Reportable 06/14/17 08:52 Ovalocytes Not Reportable 06/14/17 08:52 Helmet Cells Not Reportable 06/14/17 08:52 [place]ne Bodies Not Reportable 06/14/17 08:52 [place] Rings Not Reportable 06/14/17 08:52 [place]issa Cells Not Reportable 06/14/17 08:52 Bite Cells Not Reportable 06/14/17 08:52 Crenated Cell Not Reportable 06/14/17 08:52 Elliptocytes Not Reportable 06/14/17 08:52 Acanthocytes (Spur) Not Reportable 06/14/17 08:52 Rouleaux Not Reportable 06/14/17 08:52 Hemoglobin C Crystals Not Reportable 06/14/17 08:52 Schistocytes Not Reportable 06/14/17 08:52 Malaria parasites Not Reportable 06/14/17 08:52 [place]o Bodies Not Reportable 06/14/17 08:52 Hem Pathologist Commnt No 06/14/17 08:52 PT 12.7 Sec. (12.2-14.9) 06/10/17 21:52 INR 0.91 (0.87-1.13) 06/10/17 21:52 POC ABG pH 7.435 (7.35-7.45) 06/14/17 04:07 POC ABG pCO2 41.4 (35-45) 06/14/17 04:07 POC ABG pO2 151 (80-105) H 06/14/17 04:07 POC ABG HCO3 27.7 06/14/17 04:07 POC ABG Total CO2 29 06/14/17 04:07 POC ABG O2 Sat 99 06/14/17 04:07 POC ABG Base Excess 4 06/14/17 04:07 FiO2 30 % 06/14/17 04:07 Sodium 140 mmol/L (137-145) 06/14/17 08:52 Potassium 4.2 mmol/L (3.6-5.0) 06/14/17 08:52 Chloride 103.3 mmol/L (98-107) 06/14/17 08:52 Carbon Dioxide 24 mmol/L (22-30) 06/14/17 08:52 Anion Gap 17 mmol/L 06/14/17 08:52 BUN 12 mg/dL (9-20) 06/14/17 08:52 Creatinine 0.9 mg/dL (0.8-1.5) 06/14/17 08:52 Estimated GFR > 60 ml/min 06/14/17 08:52 BUN/Creatinine Ratio 13 % 06/14/17 08:52 Glucose 129 mg/dL (75-100) H 06/14/17 08:52 POC Glucose 106 (70-105) H 06/12/17 08:29 Lactic Acid 2.70 mmol/L (0.7-2.0) H* 06/11/17 05:25 Calcium 8.4 mg/dL (8.4-10.2) 06/14/17 08:52 Magnesium 1.80 mg/dL (1.7-2.3) 06/10/17 22:52 Total Bilirubin 0.90 mg/dL (0.1-1.2) 06/10/17 21:52 AST 17 units/L (5-40) 06/10/17 21:52 ALT 10 units/L (7-56) 06/10/17 21:52 Alkaline Phosphatase 48 units/L (35-129) 06/10/17 21:52 Total Creatine Kinase 166 units/L (55-170) 06/10/17 21:52 Troponin T < 0.010 ng/mL (0.00-0.029) 06/11/17 05:25 C-Reactive Protein 0.60 mg/dL (0.00-1.30) 06/11/17 05:25 Total Protein 8.4 g/dL (6.3-8.2) H 06/10/17 21:52 Albumin 4.7 g/dL (3.9-5) 06/10/17 21:52 Albumin/Globulin Ratio 1.3 % 06/10/17 21:52 Urine Color Yellow (Yellow) 06/10/17 21:50 Urine Turbidity Clear (Clear) 06/10/17 21:50 Urine pH 5.0 (5.0-7.0) 06/10/17 21:50 Ur Specific [place] 1.019 (1.003-1.030) 06/10/17 21:50 Urine Protein <15 mg/dl mg/dL (Negative) 06/10/17 21:50 Urine Glucose (UA) Neg mg/dL (Negative) 06/10/17 21:50 Urine Ketones Neg mg/dL (Negative) 06/10/17 21:50 Urine Blood Sm (Negative) 06/10/17 21:50 Urine Nitrite Neg (Negative) 06/10/17 21:50 Urine Bilirubin Neg (Negative) 06/10/17 21:50 Urine Urobilinogen < 2.0 mg/dL (<2.0) 06/10/17 21:50 Ur Leukocyte Esterase Neg (Negative) 06/10/17 21:50 Urine WBC (Auto) 4.0 /HPF (0.0-6.0) 06/10/17 21:50 Urine RBC (Auto) 1.0 /HPF (0.0-6.0) 06/10/17 21:50 Urine Mucus Few /HPF 06/10/17 21:50 CSF Appearance Clear 06/10/17 15:04 CSF Color Colorless 06/10/17 15:04 CSF WBC 2 /mm3 (1-10) 06/10/17 15:04 CSF RBC 3 /mm3 (0-0) 06/10/17 15:04 CSF Seg Neutrophils 3.6 % (0-6) 06/10/17 15:04 CSF Lymphocytes % 37.5 % (40-80) 06/10/17 15:04 CSF Reactive Lymphs Not Reportable 06/10/17 15:04 CSF Monocytes % 58.9 % (15-45) 06/10/17 15:04 CSF Eosinophils % Not Reportable 06/10/17 15:04 CSF Basophils Not Reportable 06/10/17 15:04 CSF Pathologist Review C 06/10/17 15:04 CSF Glucose 95 mg/dL 06/10/17 15:04 CSF Total Protein 27 mg/dL 06/10/17 15:04 Salicylates < 0.3 mg/dL (2.8-20.0) L 06/10/17 21:52 Acetaminophen < 15.0 ug/mL (10.0-30.0) 06/10/17 21:52 HIV 1&2 Antibody Rapid Non react (Non React) 06/11/17 23:39 HIV P24 Antigen Non react (Non React) 06/11/17 23:39 Miscellaneous Test Flexitest 1 06/11/17 15:04
[2017-06-15] MEDS: HEPARIN SUB-Q SCH ×3 (00:23→23:20)
[2017-06-15] MEDS: ATIVAN IV PRN (01:00)
[2017-06-15] MEDS: D5/0.45NS 1,000 ML IV SCH ×2 (06:41→20:13)
[2017-06-15] MEDS: fentaNYL DRIP Premix 2,000 MCG/100 ML BAG IV SCH ×4 (06:43→19:16)
--- NOTE | 2017-06-15 07:25 | XRay Report ---
FINAL REPORT EXAM: XR CHEST 1V AP HISTORY: follow up respiratory failure TECHNIQUE: AP portable view(s) of the chest obtained. PRIORS: 06/14/2017 FINDINGS: Endotracheal tube terminates approximately 7.5 cm from the citlali. Enteric tube courses below the diaphragm and off of the inferior field of view. No mediastinal shift. Cardiac silhouette is not enlarged. No pneumothorax, effusion, or focal pulmonary opacity identified. No acute skeletal findings. IMPRESSION: Satisfactory appearance of patient's support apparatus without pneumothorax.
[2017-06-15 08:23] LABS: Basophils % (Auto) 0.1 % (0.0-1.8); Hematocrit 37.2 % (35.5-45.6); Hemoglobin 12.2 gm/dl (11.8-15.2); Lymphocytes # (Auto) 0.6 K/mm3 (1.2-5.4); Lymphocytes % (Auto) 12.6 % (13.4-35.0); Mean Corpuscular HGB Conc 33 % (32-34); Mean Corpuscular Hemoglobin 31 pg (28-32); Mean Corpuscular Volume 93 fl (84-94); Monocytes # (Auto) 0.6 K/mm3 (0.0-0.8); Monocytes % (Auto) 14.3 % (0.0-7.3); Platelet Count 164 K/mm3 (140-440); Red Blood Count 4.02 M/mm3 (3.65-5.03); Red Cell Distribution Width 14.4 % (13.2-15.2)
[2017-06-15 08:42] LABS: BUN/Creatinine Ratio 13; Blood Urea Nitrogen 12 mg/dL (9-20); Calcium 8.5 mg/dL (8.4-10.2); Hemolysis Index 8
[2017-06-15] MEDS: PEPCID IV SCH ×2 (09:18→23:20)
[2017-06-15] MEDS: cefTRIAXone 2 GM in NACL 0.9% 20 ML IV SCH (09:20)
[2017-06-15] MEDS: KEPPRA 1,000 MG/NS 0.75% 100ML 1,000 MG/100 ML BAG IV SCH ×2 (09:32→23:20)
[2017-06-15] MEDS: TAMIFLU PO SCH ×2 (10:58→23:20)
--- NOTE | 2017-06-15 12:39 | Progress Note ---
Assessment and Plan Assessment: 1) Sepsis: resolved. Etiology likely multifactorial - Influenza A +/- allergic reaction -severe anaphylatic reaction due to cipro / tramadol. No evidence of meningitis. CRP=0.6. HIV neg. 2) Respiratory failure: for airway protection due to severe angioedema ? / no evidence of consolidation on CXR 3) Presumed severe allergic reaction / angiodema due to cipro/tramadol Plan: -continue ceftriaxone 5 of 7 -continue tamiflu day 5 of 7 -treat for allergic reaction -continue steroids ? laryngeal edema - discussed with Dr Keely johnson (fever resolved for 48h and no evidence of meningitis) I will be available over the phone on 06/16 please call me for questions. Thank you Dr Baca for your consultation, will follow up with you. Demetrice Diaz MD Infectious Diseases Specialist [facility] [phone] O [phone] Subjective Date of service: 06/15/17 Principal diagnosis: Acute hypoxic respiratory failure on MVS; Possible Meningitis; AMS Interval history: Remains intubated, no fever for 48h. Microbiology: Blood cultures: 06/10 ngtd Influenza A: positive CSF: 06/10 neg Urine: 06/10 neg Current Antimicrobials Ceftriaxone 06/11 Tamiflu 06/11 Previous Antimicrobials: Vancomycin 06/11 Acyclovir 06/11 Objective - Exam Narrative Exam: General appearance: sedated slightly alert intubated Eyes: anicteric sclerae, moist conjunctivae; no lid-lag; slow reactive pupils HENT: Atraumatic; oropharynx +ETT Neck: Trachea midline; supple, no thyromegaly or lymphadenopathy Lungs: CTA CV: RRR, no murmurs Abdomen: Soft, non-tender; no masses or hepatosplenomegaly Extremities: No peripheral edema or extremity lymphadenopathy Skin: Normal temperature, turgor and texture; no rash, ulcers or subcutaneous nodules Psych: sedated Neuro: sedated Lines: - Constitutional Vitals: Vital Signs Temp Pulse Resp BP Pulse Ox 97.7 F 50 L 12 114/75 100 06/15/17 11:30 06/15/17 11:30 06/15/17 11:30 06/15/17 11:30 06/15/17 11:30 Temperature -Last 24 Hours Temperature 97.7 F Temperature 97.5 F Temperature 97.6 F Temperature 98.7 F Temperature 98.4 F - Labs CBC & Chem 7: 06/15/17 07:50 06/15/17 07:50 Labs: Abnormal lab results 06/14/17 06/15/17 06/15/17 Range/Units 20:20 04:26 07:50 Lymph % (Auto) 12.6 L (13.4-35.0) % [place] % (Auto) 14.3 H (0.0-7.3) % Lymph # 0.6 L (1.2-5.4) K/mm3 Seg Neutrophils % 73.0 H (40.0-70.0) % POC ABG pH 7.467 H (7.35-7.45) POC ABG pO2 114 H (80-105) Glucose (75-100) mg/dL POC Glucose 132 H (70-105) 06/15/17 Range/Units 07:50 Lymph % (Auto) (13.4-35.0) % [place] % (Auto) (0.0-7.3) % Lymph # (1.2-5.4) K/mm3 Seg Neutrophils % (40.0-70.0) % POC ABG pH (7.35-7.45) POC ABG pO2 (80-105) Glucose 122 H (75-100) mg/dL POC Glucose (70-105)
--- NOTE | 2017-06-15 13:32 | Progress Note ---
Assessment and Plan Assessment and plan: Sepsis. Resolved. Etiology likely multifactorial - Influenza A +/- allergic reaction -severe anaphylatic reaction due to cipro / tramadol. No evidence of meningitis. CRP=0.6. HIV neg. Continue ceftriaxone and tamiflu 5 of 7 Toxic metabolic encephalopathy. Continue to treat underlying medical causes. Acute hypoxemic respiratory failure. Continue mechanical ventilation per pulmonary. Wean vent as tolerated. PSV trials once less agitated and can lighten sedation. Daily SAT/SBT Presumed severe allergic reaction to cipro/tramadol Continue Pepcid and Solu-Medrol. ? Angioedema/laryngeal edema ? Seizure. Nursing reports questionable seizure on admission and posturing last evening. Check EEG. Continue Keppra History Interval history: Patient is intubated on mechanical ventilation. Hospitalist Physical - Constitutional Vitals: Temp Pulse Resp BP Pulse Ox 97.7 F 50 L 12 114/75 100 06/15/17 11:30 06/15/17 11:30 06/15/17 11:30 06/15/17 11:30 06/15/17 11:30 General appearance: Present: no acute distress, well-nourished - EENT Eyes: Present: PERRL, EOM intact ENT: hearing intact, clear oral mucosa, dentition normal - Neck Neck: Present: supple, normal ROM - Respiratory Respiratory effort: normal Respiratory: bilateral: CTA - Cardiovascular Rhythm: regular Heart Sounds: Present: S1 & S2. Absent: gallop, rub - Extremities Extremities: no ischemia, No edema, Full ROM - Abdominal General gastrointestinal: soft, non-tender, non-distended, normal bowel sounds - Integumentary Integumentary: Present: clear, warm, dry - Neurologic Neurologic: CNII-XII intact, moves all extremities Results - Labs CBC & Chem 7: 06/15/17 07:50 06/15/17 07:50 Labs: Laboratory Last Values WBC 4.5 K/mm3 (4.5-11.0) 06/15/17 07:50 RBC 4.02 M/mm3 (3.65-5.03) 06/15/17 07:50 Hgb 12.2 gm/dl (11.8-15.2) 06/15/17 07:50 Hct 37.2 % (35.5-45.6) 06/15/17 07:50 MCV 93 fl (84-94) 06/15/17 07:50 MCH 31 pg (28-32) 06/15/17 07:50 MCHC 33 % (32-34) 06/15/17 07:50 RDW 14.4 % (13.2-15.2) 06/15/17 07:50 Plt Count 164 K/mm3 (140-440) 06/15/17 07:50 Lymph % (Auto) 12.6 % (13.4-35.0) L 06/15/17 07:50 [place] % (Auto) 14.3 % (0.0-7.3) H 06/15/17 07:50 Eos % (Auto) 0.0 % (0.0-4.3) 06/15/17 07:50 Baso % (Auto) 0.1 % (0.0-1.8) 06/15/17 07:50 Lymph # 0.6 K/mm3 (1.2-5.4) L 06/15/17 07:50 [place] # 0.6 K/mm3 (0.0-0.8) 06/15/17 07:50 Eos # 0.0 K/mm3 (0.0-0.4) 06/15/17 07:50 Baso # 0.0 K/mm3 (0.0-0.1) 06/15/17 07:50 Add Manual Diff Complete 06/14/17 08:52 Total Counted 100 06/14/17 08:52 Seg Neutrophils % 73.0 % (40.0-70.0) H 06/15/17 07:50 Seg Neuts % (Manual) 78.0 % (40.0-70.0) H 06/14/17 08:52 Band Neutrophils % 2.0 % 06/14/17 08:52 Lymphocytes % (Manual) 10.0 % (13.4-35.0) L 06/14/17 08:52 Reactive Lymphs % (Man) 0 % 06/14/17 08:52 Monocytes % (Manual) 10.0 % (0.0-7.3) H 06/14/17 08:52 Eosinophils % (Manual) 0 % (0.0-4.3) 06/14/17 08:52 Basophils % (Manual) 0 % (0.0-1.8) 06/14/17 08:52 Metamyelocytes % 0 % 06/14/17 08:52 Myelocytes % 0 % 06/14/17 08:52 Promyelocytes % 0 % 06/14/17 08:52 Blast Cells % 0 % 06/14/17 08:52 Nucleated RBC % Not Reportable 06/14/17 08:52 Seg Neutrophils # 3.3 K/mm3 (1.8-7.7) 06/15/17 07:50 Seg Neutrophils # Man 3.2 K/mm3 (1.8-7.7) 06/14/17 08:52 Band Neutrophils # 0.1 K/mm3 06/14/17 08:52 Lymphocytes # (Manual) 0.4 K/mm3 (1.2-5.4) L 06/14/17 08:52 Abs React Lymphs (Man) 0.0 K/mm3 06/14/17 08:52 Monocytes # (Manual) 0.4 K/mm3 (0.0-0.8) 06/14/17 08:52 Eosinophils # (Manual) 0.0 K/mm3 (0.0-0.4) 06/14/17 08:52 Basophils # (Manual) 0.0 K/mm3 (0.0-0.1) 06/14/17 08:52 Metamyelocytes # 0.0 K/mm3 06/14/17 08:52 Myelocytes # 0.0 K/mm3 06/14/17 08:52 Promyelocytes # 0.0 K/mm3 06/14/17 08:52 Blast Cells # 0.0 K/mm3 06/14/17 08:52 WBC Morphology Not Reportable 06/14/17 08:52 Hypersegmented Neuts Not Reportable 06/14/17 08:52 Hyposegmented Neuts Not Reportable 06/14/17 08:52 Hypogranular Neuts Not Reportable 06/14/17 08:52 Smudge Cells Not Reportable 06/14/17 08:52 Toxic Granulation Not Reportable 06/14/17 08:52 Toxic Vacuolation Not Reportable 06/14/17 08:52 Dohle Bodies Not Reportable 06/14/17 08:52 Pel[place]-Huet Anomaly Not Reportable 06/14/17 08:52 [place] Rods Not Reportable 06/14/17 08:52 Platelet Estimate Consistent w auto 06/14/17 08:52 Clumped Platelets Not Reportable 06/14/17 08:52 Plt Clumps, EDTA Not Reportable 06/14/17 08:52 Large Platelets Not Reportable 06/14/17 08:52 Giant Platelets Not Reportable 06/14/17 08:52 Platelet Satelliting Not Reportable 06/14/17 08:52 Plt Morphology Comment Not Reportable 06/14/17 08:52 RBC Morphology Normal 06/14/17 08:52 Dimorphic RBCs Not Reportable 06/14/17 08:52 Polychromasia Not Reportable 06/14/17 08:52 Hypochromasia Not Reportable 06/14/17 08:52 Poikilocytosis Not Reportable 06/14/17 08:52 Anisocytosis Not Reportable 06/14/17 08:52 Microcytosis Not Reportable 06/14/17 08:52 Macrocytosis Not Reportable 06/14/17 08:52 Spherocytes Not Reportable 06/14/17 08:52 Pappenheimer Bodies Not Reportable 06/14/17 08:52 Sickle Cells Not Reportable 06/14/17 08:52 Target Cells Not Reportable 06/14/17 08:52 Tear Drop Cells Not Reportable 06/14/17 08:52 Ovalocytes Not Reportable 06/14/17 08:52 Helmet Cells Not Reportable 06/14/17 08:52 [place] Bodies Not Reportable 06/14/17 08:52 [place] Rings Not Reportable 06/14/17 08:52 [place] Cells Not Reportable 06/14/17 08:52 Bite Cells Not Reportable 06/14/17 08:52 Crenated Cell Not Reportable 06/14/17 08:52 Elliptocytes Not Reportable 06/14/17 08:52 Acanthocytes (Spur) Not Reportable 06/14/17 08:52 Rouleaux Not Reportable 06/14/17 08:52 Hemoglobin C Crystals Not Reportable 06/14/17 08:52 Schistocytes Not Reportable 06/14/17 08:52 Malaria parasites Not Reportable 06/14/17 08:52 [place] Bodies Not Reportable 06/14/17 08:52 Hem Pathologist Commnt No 06/14/17 08:52 PT 12.7 Sec. (12.2-14.9) 06/10/17 21:52 INR 0.91 (0.87-1.13) 06/10/17 21:52 POC ABG pH 7.467 (7.35-7.45) H 06/15/17 04:26 POC ABG pCO2 39.8 (35-45) 06/15/17 04:26 POC ABG pO2 114 (80-105) H 06/15/17 04:26 POC ABG HCO3 28.8 06/15/17 04:26 POC ABG Total CO2 30 06/15/17 04:26 POC ABG O2 Sat 99 06/15/17 04:26 POC ABG Base Excess 5 06/15/17 04:26 FiO2 25 % 06/15/17 04:26 Sodium 140 mmol/L (137-145) 06/15/17 07:50 Potassium 4.0 mmol/L (3.6-5.0) 06/15/17 07:50 Chloride 100.6 mmol/L (98-107) 06/15/17 07:50 Carbon Dioxide 26 mmol/L (22-30) 06/15/17 07:50 Anion Gap 17 mmol/L 06/15/17 07:50 BUN 12 mg/dL (9-20) 06/15/17 07:50 Creatinine 0.9 mg/dL (0.8-1.5) 06/15/17 07:50 Estimated GFR > 60 ml/min 06/15/17 07:50 BUN/Creatinine Ratio 13 % 06/15/17 07:50 Glucose 122 mg/dL (75-100) H 06/15/17 07:50 POC Glucose 132 (70-105) H 06/14/17 20:20 Lactic Acid 2.70 mmol/L (0.7-2.0) H* 06/11/17 05:25 Calcium 8.5 mg/dL (8.4-10.2) 06/15/17 07:50 Magnesium 1.80 mg/dL (1.7-2.3) 06/10/17 22:52 Total Bilirubin 0.90 mg/dL (0.1-1.2) 06/10/17 21:52 AST 17 units/L (5-40) 06/10/17 21:52 ALT 10 units/L (7-56) 06/10/17 21:52 Alkaline Phosphatase 48 units/L (35-129) 06/10/17 21:52 Total Creatine Kinase 166 units/L (55-170) 06/10/17 21:52 Troponin T < 0.010 ng/mL (0.00-0.029) 06/11/17 05:25 C-Reactive Protein 0.60 mg/dL (0.00-1.30) 06/11/17 05:25 Total Protein 8.4 g/dL (6.3-8.2) H 06/10/17 21:52 Albumin 4.7 g/dL (3.9-5) 06/10/17 21:52 Albumin/Globulin Ratio 1.3 % 06/10/17 21:52 Urine Color Yellow (Yellow) 06/10/17 21:50 Urine Turbidity Clear (Clear) 06/10/17 21:50 Urine pH 5.0 (5.0-7.0) 06/10/17 21:50 Ur Specific [place] 1.019 (1.003-1.030) 06/10/17 21:50 Urine Protein <15 mg/dl mg/dL (Negative) 06/10/17 21:50 Urine Glucose (UA) Neg mg/dL (Negative) 06/10/17 21:50 Urine Ketones Neg mg/dL (Negative) 06/10/17 21:50 Urine Blood Sm (Negative) 06/10/17 21:50 Urine Nitrite Neg (Negative) 06/10/17 21:50 Urine Bilirubin Neg (Negative) 06/10/17 21:50 Urine Urobilinogen < 2.0 mg/dL (<2.0) 06/10/17 21:50 Ur Leukocyte Esterase Neg (Negative) 06/10/17 21:50 Urine WBC (Auto) 4.0 /HPF (0.0-6.0) 06/10/17 21:50 Urine RBC (Auto) 1.0 /HPF (0.0-6.0) 06/10/17 21:50 Urine Mucus Few /HPF 06/10/17 21:50 CSF Appearance Clear 06/10/17 15:04 CSF Color Colorless 06/10/17 15:04 CSF WBC 2 /mm3 (1-10) 06/10/17 15:04 CSF RBC 3 /mm3 (0-0) 06/10/17 15:04 CSF Seg Neutrophils 3.6 % (0-6) 06/10/17 15:04 CSF Lymphocytes % 37.5 % (40-80) 06/10/17 15:04 CSF Reactive Lymphs Not Reportable 06/10/17 15:04 CSF Monocytes % 58.9 % (15-45) 06/10/17 15:04 CSF Eosinophils % Not Reportable 06/10/17 15:04 CSF Basophils Not Reportable 06/10/17 15:04 CSF Pathologist Review C 06/10/17 15:04 CSF Glucose 95 mg/dL 06/10/17 15:04 CSF Total Protein 27 mg/dL 06/10/17 15:04 Salicylates < 0.3 mg/dL (2.8-20.0) L 06/10/17 21:52 Acetaminophen < 15.0 ug/mL (10.0-30.0) 06/10/17 21:52 HIV 1&2 Antibody Rapid Non react (Non React) 06/11/17 23:39 HIV P24 Antigen Non react (Non React) 06/11/17 23:39 Miscellaneous Test Flexitest 1 06/11/17 15:04
--- NOTE | 2017-06-15 13:47 | Progress Note ---
Assessment and Plan Sepsis Acute hypoxic respiratory failure on mechanical ventilatory support Meningitis Acute encephalopathy (toxic, metabolic) Possible drug-drug interaction Hypokalemia Seizure - schedule seroquel and wean fentanyl thereafter - PSV trials once less agitated and can lighten sedation - Continue with mechanical ventilatory support - VAP bundle addressed - supplemental oxygen to kep O2 sats>90% - Continue with droplet precautions until spinal tap results are available - VTE prophylaxis - Stress ulcer prophylaxis - Anti-epileptic medications (on Keppra) - continue lung protective strategies - CSF unremarkable; continue anti-infectives and precautions per ID - Virgen catheter in this critically ill patient - Daily SAT/SBT - Avoid benzodiazepines - Replete electrolytes and monitor - begin enteric feeding with glycemic control - Discussed with RT Subjective Date of service: 06/15/17 Principal diagnosis: Acute hypoxic respiratory failure on MVS; Possible Meningitis; AMS Interval history: Patient is seen today for: Acute hypoxic respiratory failure on MVS; Possible Meningitis; Acute encephalopathy (toxic, metabolic) Seen and examined at bedside; 24hour events reviewed; nursing and respiratory care staff consulted; no adverse overnight events reported to me; remains on MVS ; Objective Vital Signs - 12hr 06/15/17 06/15/17 06/15/17 02:00 02:16 02:30 Temperature Pulse Rate 55 L 50 L 48 L Respiratory 15 18 19 Rate Blood Pressure 135/81 122/80 121/80 Blood Pressure [Left] O2 Sat by Pulse 100 100 100 Oximetry 06/15/17 06/15/17 06/15/17 02:46 03:00 03:16 Temperature Pulse Rate 49 L 46 L 47 L Respiratory 24 15 16 Rate Blood Pressure 121/80 126/83 126/83 Blood Pressure [Left] O2 Sat by Pulse 100 100 100 Oximetry 06/15/17 06/15/17 06/15/17 03:30 03:46 04:00 Temperature Pulse Rate 45 L 46 L 45 L Respiratory 19 21 21 Rate Blood Pressure 135/89 135/89 129/85 Blood Pressure [Left] O2 Sat by Pulse 100 100 100 Oximetry 06/15/17 06/15/17 06/15/17 04:06 04:16 04:30 Temperature Pulse Rate 72 47 L 47 L Respiratory 19 18 Rate Blood Pressure 122/84 129/85 127/88 Blood Pressure [Left] O2 Sat by Pulse 99 100 97 Oximetry 06/15/17 06/15/17 06/15/17 04:46 05:00 05:16 Temperature Pulse Rate 47 L 46 L 47 L Respiratory 21 13 13 Rate Blood Pressure 127/88 126/87 126/87 Blood Pressure [Left] O2 Sat by Pulse 100 100 99 Oximetry 06/15/17 06/15/17 06/15/17 05:30 05:46 06:00 Temperature Pulse Rate 47 L 47 L 49 L Respiratory 12 16 13 Rate Blood Pressure 125/86 126/87 128/88 Blood Pressure [Left] O2 Sat by Pulse 100 100 99 Oximetry 06/15/17 06/15/17 06/15/17 06:16 06:30 06:46 Temperature Pulse Rate 49 L 48 L 48 L Respiratory 12 12 18 Rate Blood Pressure 125/86 121/84 128/88 Blood Pressure [Left] O2 Sat by Pulse 100 100 100 Oximetry 06/15/17 06/15/17 06/15/17 07:35 07:42 09:30 Temperature 97.6 F Pulse Rate 58 L 50 L 50 L Respiratory 13 12 Rate Blood Pressure 124/78 Blood Pressure 124/79 120/78 [Left] O2 Sat by Pulse 100 98 100 Oximetry 06/15/17 06/15/17 06/15/17 09:50 10:10 11:30 Temperature 97.5 F L 97.7 F Pulse Rate 55 L 50 L Respiratory 12 Rate Blood Pressure Blood Pressure 114/75 [Left] O2 Sat by Pulse 96 100 Oximetry Constitutional: appears uncomfortable, other (sedated) Eyes: non-icteric ENT: oropharynx moist, other (ETT 23cm RABIA) Neck: supple, no lymphadenopathy, no JVD, other (no goiter) Effort: mildly labored Ascultation: Bilateral: diminished breath sounds, rhonchi (scant) Percussion: Bilateral: not dull Cardiovascular: regular rate and rhythm, other (No rubs or murmurs) Gastrointestinal: normoactive bowel sounds, soft, non-tender, non-distended, other (No palpable HSM) Integumentary: normal Extremities: no cyanosis, no edema, pulses normal, no ischemia or petechiae Neurologic: unable to assess Psychiatric: other (sedated) CBC and BMP: 06/15/17 07:50 06/15/17 07:50 ABG, PT/INR, D-dimer: ABG POC ABG pH 7.467 (7.35-7.45) H 06/15/17 04:26 POC ABG pCO2 39.8 (35-45) 06/15/17 04:26 POC ABG pO2 114 (80-105) H 06/15/17 04:26 POC ABG HCO3 28.8 06/15/17 04:26 POC ABG Total CO2 30 06/15/17 04:26 POC ABG O2 Sat 99 06/15/17 04:26 PT/INR, D-dimer PT 12.7 Sec. (12.2-14.9) 06/10/17 21:52 INR 0.91 (0.87-1.13) 06/10/17 21:52 Abnormal lab findings: Abnormal Labs 06/10/17 06/10/17 06/10/17 21:52 21:52 21:52 WBC RBC Hgb Hct MCV 95 H Lymph % (Auto) 6.7 L [place] % (Auto) 13.7 H Lymph # 0.5 L [place] # 1.0 H Seg Neutrophils % 78.1 H Seg Neuts % (Manual) Lymphocytes % (Manual) Monocytes % (Manual) Seg Neutrophils # Lymphocytes # (Manual) POC ABG pH POC ABG pCO2 POC ABG pO2 Potassium 3.2 L D Carbon Dioxide BUN Glucose 73 L POC Glucose Lactic Acid 3.30 H* Calcium Total Protein 8.4 H Salicylates 06/10/17 06/10/17 06/11/17 21:52 23:11 00:33 WBC RBC Hgb Hct MCV Lymph % (Auto) [place] % (Auto) Lymph # [place] # Seg Neutrophils % Seg Neuts % (Manual) Lymphocytes % (Manual) Monocytes % (Manual) Seg Neutrophils # Lymphocytes # (Manual) POC ABG pH POC ABG pCO2 29.8 L POC ABG pO2 261 H Potassium Carbon Dioxide BUN Glucose POC Glucose Lactic Acid 2.80 H* Calcium Total Protein Salicylates < 0.3 L 06/11/17 06/11/17 06/11/17 03:59 05:25 05:25 WBC RBC Hgb Hct MCV 97 H Lymph % (Auto) 5.5 L [place] % (Auto) 13.7 H Lymph # 0.6 L [place] # 1.4 H Seg Neutrophils % 80.6 H Seg Neuts % (Manual) Lymphocytes % (Manual) Monocytes % (Manual) Seg Neutrophils # 8.2 H Lymphocytes # (Manual) POC ABG pH POC ABG pCO2 31.4 L POC ABG pO2 150 H Potassium 5.2 H D Carbon Dioxide 18 L BUN 8 L Glucose 117 H POC Glucose Lactic Acid Calcium 8.1 L Total Protein Salicylates 06/11/17 06/12/17 06/12/17 05:25 04:30 08:29 WBC RBC Hgb Hct MCV Lymph % (Auto) [place] % (Auto) Lymph # [place] # Seg Neutrophils % Seg Neuts % (Manual) Lymphocytes % (Manual) Monocytes % (Manual) Seg Neutrophils # Lymphocytes # (Manual) POC ABG pH POC ABG pCO2 POC ABG pO2 122 H Potassium Carbon Dioxide BUN Glucose POC Glucose 106 H Lactic Acid 2.70 H* Calcium Total Protein Salicylates 06/13/17 06/13/17 06/13/17 04:01 07:00 07:00 WBC RBC Hgb Hct MCV Lymph % (Auto) 9.8 L [place] % (Auto) 8.2 H Lymph # 0.6 L [place] # Seg Neutrophils % 81.7 H Seg Neuts % (Manual) Lymphocytes % (Manual) Monocytes % (Manual) Seg Neutrophils # Lymphocytes # (Manual) POC ABG pH POC ABG pCO2 POC ABG pO2 128 H Potassium Carbon Dioxide BUN Glucose 119 H POC Glucose Lactic Acid Calcium Total Protein Salicylates 06/14/17 06/14/17 06/14/17 04:07 08:52 08:52 WBC 4.1 L RBC 3.53 L Hgb 10.8 L Hct 32.7 L MCV Lymph % (Auto) [place] % (Auto) Lymph # [place] # Seg Neutrophils % Seg Neuts % (Manual) 78.0 H Lymphocytes % (Manual) 10.0 L Monocytes % (Manual) 10.0 H Seg Neutrophils # Lymphocytes # (Manual) 0.4 L POC ABG pH POC ABG pCO2 POC ABG pO2 151 H Potassium Carbon Dioxide BUN Glucose 129 H POC Glucose Lactic Acid Calcium Total Protein Salicylates 06/14/17 06/15/17 06/15/17 20:20 04:26 07:50 WBC RBC Hgb Hct MCV Lymph % (Auto) 12.6 L [place] % (Auto) 14.3 H Lymph # 0.6 L [place] # Seg Neutrophils % 73.0 H Seg Neuts % (Manual) Lymphocytes % (Manual) Monocytes % (Manual) Seg Neutrophils # Lymphocytes # (Manual) POC ABG pH 7.467 H POC ABG pCO2 POC ABG pO2 114 H Potassium Carbon Dioxide BUN Glucose POC Glucose 132 H Lactic Acid Calcium Total Protein Salicylates 06/15/17 07:50 WBC RBC Hgb Hct MCV Lymph % (Auto) [place] % (Auto) Lymph # [place] # Seg Neutrophils % Seg Neuts % (Manual) Lymphocytes % (Manual) Monocytes % (Manual) Seg Neutrophils # Lymphocytes # (Manual) POC ABG pH POC ABG pCO2 POC ABG pO2 Potassium Carbon Dioxide BUN Glucose 122 H POC Glucose Lactic Acid Calcium Total Protein Salicylates Allied health notes reviewed: RT (Continue daily SBTs as tolerated)
[2017-06-15 19:04] LABS: Magnesium 2.1 mg/dL (1.7-2.3)
[2017-06-15] MEDS: MIDAZOLAM 100 MG in NACL 0.9% 80 ML IV SCH (19:18)
--- NOTE | 2017-06-16 02:45 | XRay Report ---
FINAL REPORT EXAM: XR CHEST 1V AP HISTORY: follow up respiratory failure COMPARISON: June 15, 2017. FINDINGS: Frontal view(s) of the chest obtained. Cardiac silhouette within normal limits. No gross consolidation or effusion. No pneumothorax. Removal of ET tube and NG tube. IMPRESSION: Lungs are grossly clear. Removal of ET tube and NG tube.
[2017-06-16] MEDS: HALDOL IV PRN (03:18)
[2017-06-16] MEDS: ATIVAN IV PRN ×2 (03:18→07:00)
[2017-06-16 06:20] LABS: Hematocrit 34.5 % (35.5-45.6); Hemoglobin 11.8 gm/dl (11.8-15.2); Mean Corpuscular HGB Conc 34 % (32-34); Mean Corpuscular Hemoglobin 31 pg (28-32); Mean Corpuscular Volume 91 fl (84-94); Platelet Count 163 K/mm3 (140-440); Red Blood Count 3.78 M/mm3 (3.65-5.03); Red Cell Distribution Width 13.8 % (13.2-15.2)
[2017-06-16 06:39] LABS: BUN/Creatinine Ratio 15; Blood Urea Nitrogen 12 mg/dL (9-20); Calcium 8.6 mg/dL (8.4-10.2); Hemolysis Index 7
[2017-06-16 07:22] LABS: Band Neutrophils # (Manual) 0.5 K/mm3; Basophils % (Manual) 0 % (0.0-1.8); Eosinophils % (Manual) 0 % (0.0-4.3); RBC Morphology Normal; Total Cells Counted 100
[2017-06-16 07:23] LABS: Rouleaux Rare
--- NOTE | 2017-06-16 09:38 | Progress Note ---
Assessment and Plan Assessment and plan: Sepsis. Resolved. Etiology likely multifactorial - Influenza A +/- allergic reaction -severe anaphylatic reaction due to cipro / tramadol. No evidence of meningitis. CRP=0.6. HIV neg. Continue ceftriaxone and tamiflu 5 of 7 Toxic metabolic encephalopathy. Continue to treat underlying medical causes. Acute hypoxemic respiratory failure. Patient self extubated himself. Patient tolerating O2 via nasal cannula. Presumed severe allergic reaction to cipro/tramadol Continue Pepcid and Solu-Medrol. ? Angioedema/laryngeal edema ? Seizure. Nursing reports questionable seizure on admission and posturing last evening. Check EEG. Continue Keppra History Interval history: Patient self extubated himself yesterday at approximately 5 PM. Patient has been tolerating nasal cannula and regular diet since that time. Hospitalist Physical - Constitutional Vitals: Temp Pulse Resp BP Pulse Ox 98.5 F 134 H 17 154/81 73 L 06/15/17 19:58 06/16/17 02:50 06/16/17 02:50 06/16/17 05:44 06/16/17 05:44 General appearance: Present: no acute distress, well-nourished - EENT Eyes: Present: PERRL, EOM intact ENT: hearing intact, clear oral mucosa, dentition normal - Neck Neck: Present: supple, normal ROM - Respiratory Respiratory effort: normal Respiratory: bilateral: CTA - Cardiovascular Rhythm: regular Heart Sounds: Present: S1 & S2. Absent: gallop, rub - Extremities Extremities: no ischemia, No edema, Full ROM - Abdominal General gastrointestinal: soft, non-tender, non-distended, normal bowel sounds - Integumentary Integumentary: Present: clear, warm, dry - Neurologic Neurologic: CNII-XII intact, moves all extremities Results - Labs CBC & Chem 7: 06/16/17 06:02 06/16/17 06:02 Labs: Laboratory Last Values WBC 4.9 K/mm3 (4.5-11.0) 06/16/17 06:02 RBC 3.78 M/mm3 (3.65-5.03) 06/16/17 06:02 Hgb 11.8 gm/dl (11.8-15.2) 06/16/17 06:02 Hct 34.5 % (35.5-45.6) L 06/16/17 06:02 MCV 91 fl (84-94) 06/16/17 06:02 MCH 31 pg (28-32) 06/16/17 06:02 MCHC 34 % (32-34) 06/16/17 06:02 RDW 13.8 % (13.2-15.2) 06/16/17 06:02 Plt Count 163 K/mm3 (140-440) 06/16/17 06:02 Lymph % (Auto) 12.6 % (13.4-35.0) L 06/15/17 07:50 [place] % (Auto) Vice President Payer 06/16/17 06:02 Eos % (Auto) 0.0 % (0.0-4.3) 06/15/17 07:50 Baso % (Auto) 0.1 % (0.0-1.8) 06/15/17 07:50 Lymph # 0.6 K/mm3 (1.2-5.4) L 06/15/17 07:50 [place] # 0.6 K/mm3 (0.0-0.8) 06/15/17 07:50 Eos # 0.0 K/mm3 (0.0-0.4) 06/15/17 07:50 Baso # 0.0 K/mm3 (0.0-0.1) 06/15/17 07:50 Add Manual Diff Complete 06/16/17 06:02 Total Counted 100 06/16/17 06:02 Seg Neutrophils % 73.0 % (40.0-70.0) H 06/15/17 07:50 Seg Neuts % (Manual) 51.0 % (40.0-70.0) 06/16/17 06:02 Band Neutrophils % 11.0 % 06/16/17 06:02 Lymphocytes % (Manual) 22.0 % (13.4-35.0) 06/16/17 06:02 Reactive Lymphs % (Man) 0 % 06/16/17 06:02 Monocytes % (Manual) 16.0 % (0.0-7.3) H 06/16/17 06:02 Eosinophils % (Manual) 0 % (0.0-4.3) 06/16/17 06:02 Basophils % (Manual) 0 % (0.0-1.8) 06/16/17 06:02 Metamyelocytes % 0 % 06/16/17 06:02 Myelocytes % 0 % 06/16/17 06:02 Promyelocytes % 0 % 06/16/17 06:02 Blast Cells % 0 % 06/16/17 06:02 Nucleated RBC % Not Reportable 06/16/17 06:02 Seg Neutrophils # 3.3 K/mm3 (1.8-7.7) 06/15/17 07:50 Seg Neutrophils # Man 2.5 K/mm3 (1.8-7.7) 06/16/17 06:02 Band Neutrophils # 0.5 K/mm3 06/16/17 06:02 Lymphocytes # (Manual) 1.1 K/mm3 (1.2-5.4) L 06/16/17 06:02 Abs React Lymphs (Man) 0.0 K/mm3 06/16/17 06:02 Monocytes # (Manual) 0.8 K/mm3 (0.0-0.8) 06/16/17 06:02 Eosinophils # (Manual) 0.0 K/mm3 (0.0-0.4) 06/16/17 06:02 Basophils # (Manual) 0.0 K/mm3 (0.0-0.1) 06/16/17 06:02 Metamyelocytes # 0.0 K/mm3 06/16/17 06:02 Myelocytes # 0.0 K/mm3 06/16/17 06:02 Promyelocytes # 0.0 K/mm3 06/16/17 06:02 Blast Cells # 0.0 K/mm3 06/16/17 06:02 WBC Morphology Not Reportable 06/16/17 06:02 Hypersegmented Neuts Not Reportable 06/16/17 06:02 Hyposegmented Neuts Not Reportable 06/16/17 06:02 Hypogranular Neuts Not Reportable 06/16/17 06:02 Smudge Cells Not Reportable 06/16/17 06:02 Toxic Granulation Not Reportable 06/16/17 06:02 Toxic Vacuolation Not Reportable 06/16/17 06:02 Dohle Bodies Not Reportable 06/16/17 06:02 Pelger-Huet Anomaly Not Reportable 06/16/17 06:02 [place] Rods Not Reportable 06/16/17 06:02 Platelet Estimate Appears normal 06/16/17 06:02 Clumped Platelets Not Reportable 06/16/17 06:02 Plt Clumps, EDTA Not Reportable 06/16/17 06:02 Large Platelets Not Reportable 06/16/17 06:02 Giant Platelets Not Reportable 06/16/17 06:02 Platelet Satelliting Not Reportable 06/16/17 06:02 Plt Morphology Comment Not Reportable 06/16/17 06:02 RBC Morphology Normal 06/16/17 06:02 Dimorphic RBCs Not Reportable 06/16/17 06:02 Polychromasia Not Reportable 06/16/17 06:02 Hypochromasia Not Reportable 06/16/17 06:02 Poikilocytosis Not Reportable 06/16/17 06:02 Anisocytosis Not Reportable 06/16/17 06:02 Microcytosis Not Reportable 06/16/17 06:02 Macrocytosis Not Reportable 06/16/17 06:02 Spherocytes Not Reportable 06/16/17 06:02 Pappenheimer Bodies Not Reportable 06/16/17 06:02 Sickle Cells Not Reportable 06/16/17 06:02 Target Cells Not Reportable 06/16/17 06:02 Tear Drop Cells Not Reportable 06/16/17 06:02 Ovalocytes Not Reportable 06/16/17 06:02 Helmet Cells Not Reportable 06/16/17 06:02 [place] Bodies Not Reportable 06/16/17 06:02 [place] Rings Not Reportable 06/16/17 06:02 [place] Cells Not Reportable 06/16/17 06:02 Bite Cells Not Reportable 06/16/17 06:02 Crenated Cell Not Reportable 06/16/17 06:02 Elliptocytes Not Reportable 06/16/17 06:02 Acanthocytes (Spur) Not Reportable 06/16/17 06:02 Rouleaux Rare 06/16/17 06:02 Hemoglobin C Crystals Not Reportable 06/16/17 06:02 Schistocytes Not Reportable 06/16/17 06:02 Malaria parasites Not Reportable 06/16/17 06:02 [place] Bodies Not Reportable 06/16/17 06:02 Hem Pathologist Commnt No 06/16/17 06:02 PT 12.7 Sec. (12.2-14.9) 06/10/17 21:52 INR 0.91 (0.87-1.13) 06/10/17 21:52 POC ABG pH 7.467 (7.35-7.45) H 06/15/17 04:26 POC ABG pCO2 39.8 (35-45) 06/15/17 04:26 POC ABG pO2 114 (80-105) H 06/15/17 04:26 POC ABG HCO3 28.8 06/15/17 04:26 POC ABG Total CO2 30 06/15/17 04:26 POC ABG O2 Sat 99 06/15/17 04:26 POC ABG Base Excess 5 06/15/17 04:26 FiO2 25 % 06/15/17 04:26 Sodium 146 mmol/L (137-145) H 06/16/17 06:02 Potassium 3.5 mmol/L (3.6-5.0) L 06/16/17 06:02 Chloride 107.6 mmol/L (98-107) H 06/16/17 06:02 Carbon Dioxide 27 mmol/L (22-30) 06/16/17 06:02 Anion Gap 15 mmol/L 06/16/17 06:02 BUN 12 mg/dL (9-20) 06/16/17 06:02 Creatinine 0.8 mg/dL (0.8-1.5) 06/16/17 06:02 Estimated GFR > 60 ml/min 06/16/17 06:02 BUN/Creatinine Ratio 15 % 06/16/17 06:02 Glucose 94 mg/dL (75-100) 06/16/17 06:02 POC Glucose 132 (70-105) H 06/14/17 20:20 Lactic Acid 2.70 mmol/L (0.7-2.0) H* 06/11/17 05:25 Calcium 8.6 mg/dL (8.4-10.2) 06/16/17 06:02 Phosphorus 2.60 mg/dL (2.5-4.5) 06/15/17 18:20 Magnesium 2.10 mg/dL (1.7-2.3) 06/15/17 18:20 Total Bilirubin 0.90 mg/dL (0.1-1.2) 06/10/17 21:52 AST 17 units/L (5-40) 06/10/17 21:52 ALT 10 units/L (7-56) 06/10/17 21:52 Alkaline Phosphatase 48 units/L (35-129) 06/10/17 21:52 Total Creatine Kinase 166 units/L (55-170) 06/10/17 21:52 Troponin T < 0.010 ng/mL (0.00-0.029) 06/11/17 05:25 C-Reactive Protein 0.60 mg/dL (0.00-1.30) 06/11/17 05:25 Total Protein 8.4 g/dL (6.3-8.2) H 06/10/17 21:52 Albumin 4.7 g/dL (3.9-5) 06/10/17 21:52 Albumin/Globulin Ratio 1.3 % 06/10/17 21:52 Urine Color Yellow (Yellow) 06/10/17 21:50 Urine Turbidity Clear (Clear) 06/10/17 21:50 Urine pH 5.0 (5.0-7.0) 06/10/17 21:50 Ur Specific [place] 1.019 (1.003-1.030) 06/10/17 21:50 Urine Protein <15 mg/dl mg/dL (Negative) 06/10/17 21:50 Urine Glucose (UA) Neg mg/dL (Negative) 06/10/17 21:50 Urine Ketones Neg mg/dL (Negative) 06/10/17 21:50 Urine Blood Sm (Negative) 06/10/17 21:50 Urine Nitrite Neg (Negative) 06/10/17 21:50 Urine Bilirubin Neg (Negative) 06/10/17 21:50 Urine Urobilinogen < 2.0 mg/dL (<2.0) 06/10/17 21:50 Ur Leukocyte Esterase Neg (Negative) 06/10/17 21:50 Urine WBC (Auto) 4.0 /HPF (0.0-6.0) 06/10/17 21:50 Urine RBC (Auto) 1.0 /HPF (0.0-6.0) 06/10/17 21:50 Urine Mucus Few /HPF 06/10/17 21:50 CSF Appearance Clear 06/10/17 15:04 CSF Color Colorless 06/10/17 15:04 CSF WBC 2 /mm3 (1-10) 06/10/17 15:04 CSF RBC 3 /mm3 (0-0) 06/10/17 15:04 CSF Seg Neutrophils 3.6 % (0-6) 06/10/17 15:04 CSF Lymphocytes % 37.5 % (40-80) 06/10/17 15:04 CSF Reactive Lymphs Not Reportable 06/10/17 15:04 CSF Monocytes % 58.9 % (15-45) 06/10/17 15:04 CSF Eosinophils % Not Reportable 06/10/17 15:04 CSF Basophils Not Reportable 06/10/17 15:04 CSF Pathologist Review C 06/10/17 15:04 CSF Glucose 95 mg/dL 06/10/17 15:04 CSF Total Protein 27 mg/dL 06/10/17 15:04 Salicylates < 0.3 mg/dL (2.8-20.0) L 06/10/17 21:52 Acetaminophen < 15.0 ug/mL (10.0-30.0) 06/10/17 21:52 HIV 1&2 Antibody Rapid Non react (Non React) 06/11/17 23:39 HIV P24 Antigen Non react (Non React) 06/11/17 23:39 Miscellaneous Test Flexitest 1 06/11/17 15:04
[2017-06-16] MEDS: D5/0.45NS 1,000 ML IV SCH (10:33)
[2017-06-16] MEDS: KEPPRA 1,000 MG in D5W 100 ML IV SCH (10:33)
[2017-06-16] MEDS: PEPCID IV SCH ×2 (10:33→22:49)
[2017-06-16] MEDS: HEPARIN SUB-Q SCH ×2 (10:33→22:50)
[2017-06-16] MEDS: cefTRIAXone 2 GM in NACL 0.9% 20 ML IV SCH (10:33)
[2017-06-17] MEDS: KEPPRA 1,000 MG in D5W 100 ML IV SCH ×2 (00:20→09:20)
[2017-06-17] MEDS: HALDOL IV PRN (02:07)
[2017-06-17 06:22] LABS: Basophils % (Auto) 0.6 % (0.0-1.8); Hematocrit 34.6 % (35.5-45.6); Hemoglobin 11.4 gm/dl (11.8-15.2); Lymphocytes # (Auto) 0.5 K/mm3 (1.2-5.4); Lymphocytes % (Auto) 14.8 % (13.4-35.0); Mean Corpuscular HGB Conc 33 % (32-34); Mean Corpuscular Hemoglobin 30 pg (28-32); Mean Corpuscular Volume 91 fl (84-94); Monocytes # (Auto) 0.4 K/mm3 (0.0-0.8); Monocytes % (Auto) 10.1 % (0.0-7.3); Platelet Count 162 K/mm3 (140-440); Red Blood Count 3.81 M/mm3 (3.65-5.03); Red Cell Distribution Width 13.4 % (13.2-15.2)
[2017-06-17 06:39] LABS: BUN/Creatinine Ratio 14; Blood Urea Nitrogen 11 mg/dL (9-20); Calcium 8.7 mg/dL (8.4-10.2); Hemolysis Index 4
[2017-06-17] MEDS: PEPCID IV SCH (09:20)
[2017-06-17] MEDS: cefTRIAXone 2 GM in NACL 0.9% 20 ML IV SCH (09:21)
[2017-06-17] MEDS: HEPARIN SUB-Q SCH (09:21)
--- NOTE | 2017-06-17 11:16 | Progress Note ---
Assessment and Plan Assessment: 1) Sepsis: resolved. Etiology likely multifactorial - Influenza A +/- allergic reaction -severe anaphylatic reaction due to cipro / tramadol. No evidence of meningitis. CRP=0.6. HIV neg. 2) Respiratory failure: extubated 3) Presumed severe allergic reaction / angiodema due to cipro/tramadol Plan: -stop ceptriaxone -continue tamiflu day 5 of 7 -levaquin 750 mg po daily x 3 days -add cipro as severe allergy reaction to medical records -ok to discharge from ID standpoint will sign off, call for any questions or concern Thank you Dr Baca for your consultation, will follow up with you. Ton Guillen NP-C for Dr. Demetrice Diaz MD Infectious Diseases Specialist [facility] ([facility]) M [phone] O [phone] Subjective Date of service: 06/17/17 Principal diagnosis: Acute hypoxic respiratory failure on MVS; Possible Meningitis; AMS Interval history: I want to go home Microbiology: Blood cultures: 06/10 ngtd Influenza A: positive CSF: 06/10 neg Urine: 06/10 neg Current Antimicrobials Ceftriaxone 06/11 Tamiflu 06/11 Previous Antimicrobials: Vancomycin 06/11 Acyclovir 06/11 Objective - Exam Narrative Exam: General appearance: NAD lying in the bed with spouse as bedside Eyes: anicteric sclerae, moist conjunctivae; no lid-lag; slow reactive pupils HENT: Atraumatic; oropharynx Neck: Trachea midline; supple, no thyromegaly or lymphadenopathy Lungs: CTA CV: RRR, no murmurs Abdomen: Soft, non-tender; no masses or hepatosplenomegaly Extremities: No peripheral edema or extremity lymphadenopathy Skin: Normal temperature, turgor and texture; no rash, ulcers or subcutaneous nodules Psych: calm Neuro: alert and oriented x 3, moving all extremities Lines: - Constitutional Vitals: Vital Signs Temp Pulse Resp BP Pulse Ox 98.3 F 92 H 18 116/77 99 06/17/17 08:00 06/17/17 08:00 06/17/17 08:00 06/17/17 08:00 06/17/17 10:00 Temperature -Last 24 Hours Temperature 98.3 F Temperature 98.4 F Temperature 98.7 F Temperature 98.1 F - Labs CBC & Chem 7: 06/17/17 05:48 06/17/17 05:48 Labs: Abnormal lab results 06/13/17 06/17/17 06/17/17 Range/Units Unknown 05:48 05:48 WBC 3.7 L (4.5-11.0) K/mm3 Hgb 11.4 L (11.8-15.2) gm/dl Hct 34.6 L (35.5-45.6) % [place] % (Auto) 10.1 H (0.0-7.3) % Lymph # 0.5 L (1.2-5.4) K/mm3 Seg Neutrophils % 74.5 H (40.0-70.0) % Potassium 3.2 L (3.6-5.0) mmol/L Glucose 108 H (75-100) mg/dL Miscellaneous Test Flexitest 1 H
--- NOTE | 2017-06-17 12:19 | Progress Note ---
Assessment and Plan Assessment and plan: Sepsis. Resolved. Etiology likely multifactorial - Influenza A +/- allergic reaction -severe anaphylatic reaction due to cipro / tramadol. No evidence of meningitis. CRP=0.6. HIV neg. Continue tamiflu. Rocephin discontinued by ID Toxic metabolic encephalopathy. Continue to treat underlying medical causes. Acute hypoxemic respiratory failure. Patient self extubated himself. Patient tolerating O2 via nasal cannula. Presumed severe allergic reaction to cipro/tramadol Continue Pepcid and Solu-Medrol. ? Angioedema/laryngeal edema ? Seizure. Nursing reports Check EEG. Continue Keppra. Disposition. Consider discharge after EEG. History Interval history: Patient is somnolent this morning. Hospitalist Physical - Constitutional Vitals: Temp Pulse Resp BP Pulse Ox 98.3 F 92 H 18 116/77 99 06/17/17 08:00 06/17/17 08:00 06/17/17 08:00 06/17/17 08:00 06/17/17 10:00 General appearance: Present: no acute distress, well-nourished - EENT Eyes: Present: PERRL, EOM intact ENT: hearing intact, clear oral mucosa, dentition normal - Neck Neck: Present: supple, normal ROM - Respiratory Respiratory effort: normal Respiratory: bilateral: CTA - Cardiovascular Rhythm: regular Heart Sounds: Present: S1 & S2. Absent: gallop, rub - Extremities Extremities: no ischemia, No edema, Full ROM - Abdominal General gastrointestinal: soft, non-tender, non-distended, normal bowel sounds - Integumentary Integumentary: Present: clear, warm, dry - Neurologic Neurologic: CNII-XII intact, moves all extremities Results - Labs CBC & Chem 7: 06/17/17 05:48 06/17/17 05:48 Labs: Laboratory Last Values WBC 3.7 K/mm3 (4.5-11.0) L 06/17/17 05:48 RBC 3.81 M/mm3 (3.65-5.03) 06/17/17 05:48 Hgb 11.4 gm/dl (11.8-15.2) L 06/17/17 05:48 Hct 34.6 % (35.5-45.6) L 06/17/17 05:48 MCV 91 fl (84-94) 06/17/17 05:48 MCH 30 pg (28-32) 06/17/17 05:48 MCHC 33 % (32-34) 06/17/17 05:48 RDW 13.4 % (13.2-15.2) 06/17/17 05:48 Plt Count 162 K/mm3 (140-440) 06/17/17 05:48 Lymph % (Auto) 14.8 % (13.4-35.0) 06/17/17 05:48 [place] % (Auto) 10.1 % (0.0-7.3) H 06/17/17 05:48 Eos % (Auto) 0.0 % (0.0-4.3) 06/17/17 05:48 Baso % (Auto) 0.6 % (0.0-1.8) 06/17/17 05:48 Lymph # 0.5 K/mm3 (1.2-5.4) L 06/17/17 05:48 [place] # 0.4 K/mm3 (0.0-0.8) 06/17/17 05:48 Eos # 0.0 K/mm3 (0.0-0.4) 06/17/17 05:48 Baso # 0.0 K/mm3 (0.0-0.1) 06/17/17 05:48 Add Manual Diff Complete 06/16/17 06:02 Total Counted 100 06/16/17 06:02 Seg Neutrophils % 74.5 % (40.0-70.0) H 06/17/17 05:48 Seg Neuts % (Manual) 51.0 % (40.0-70.0) 06/16/17 06:02 Band Neutrophils % 11.0 % 06/16/17 06:02 Lymphocytes % (Manual) 22.0 % (13.4-35.0) 06/16/17 06:02 Reactive Lymphs % (Man) 0 % 06/16/17 06:02 Monocytes % (Manual) 16.0 % (0.0-7.3) H 06/16/17 06:02 Eosinophils % (Manual) 0 % (0.0-4.3) 06/16/17 06:02 Basophils % (Manual) 0 % (0.0-1.8) 06/16/17 06:02 Metamyelocytes % 0 % 06/16/17 06:02 Myelocytes % 0 % 06/16/17 06:02 Promyelocytes % 0 % 06/16/17 06:02 Blast Cells % 0 % 06/16/17 06:02 Nucleated RBC % Not Reportable 06/16/17 06:02 Seg Neutrophils # 2.7 K/mm3 (1.8-7.7) 06/17/17 05:48 Seg Neutrophils # Man 2.5 K/mm3 (1.8-7.7) 06/16/17 06:02 Band Neutrophils # 0.5 K/mm3 06/16/17 06:02 Lymphocytes # (Manual) 1.1 K/mm3 (1.2-5.4) L 06/16/17 06:02 Abs React Lymphs (Man) 0.0 K/mm3 06/16/17 06:02 Monocytes # (Manual) 0.8 K/mm3 (0.0-0.8) 06/16/17 06:02 Eosinophils # (Manual) 0.0 K/mm3 (0.0-0.4) 06/16/17 06:02 Basophils # (Manual) 0.0 K/mm3 (0.0-0.1) 06/16/17 06:02 Metamyelocytes # 0.0 K/mm3 06/16/17 06:02 Myelocytes # 0.0 K/mm3 06/16/17 06:02 Promyelocytes # 0.0 K/mm3 06/16/17 06:02 Blast Cells # 0.0 K/mm3 06/16/17 06:02 WBC Morphology Not Reportable 06/16/17 06:02 Hypersegmented Neuts Not Reportable 06/16/17 06:02 Hyposegmented Neuts Not Reportable 06/16/17 06:02 Hypogranular Neuts Not Reportable 06/16/17 06:02 Smudge Cells Not Reportable 06/16/17 06:02 Toxic Granulation Not Reportable 06/16/17 06:02 Toxic Vacuolation Not Reportable 06/16/17 06:02 Dohle Bodies Not Reportable 06/16/17 06:02 Pelger-Huet Anomaly Not Reportable 06/16/17 06:02 [place] Rods Not Reportable 06/16/17 06:02 Platelet Estimate Appears normal 06/16/17 06:02 Clumped Platelets Not Reportable 06/16/17 06:02 Plt Clumps, EDTA Not Reportable 06/16/17 06:02 Large Platelets Not Reportable 06/16/17 06:02 Giant Platelets Not Reportable 06/16/17 06:02 Platelet Satelliting Not Reportable 06/16/17 06:02 Plt Morphology Comment Not Reportable 06/16/17 06:02 RBC Morphology Normal 06/16/17 06:02 Dimorphic RBCs Not Reportable 06/16/17 06:02 Polychromasia Not Reportable 06/16/17 06:02 Hypochromasia Not Reportable 06/16/17 06:02 Poikilocytosis Not Reportable 06/16/17 06:02 Anisocytosis Not Reportable 06/16/17 06:02 Microcytosis Not Reportable 06/16/17 06:02 Macrocytosis Not Reportable 06/16/17 06:02 Spherocytes Not Reportable 06/16/17 06:02 Pappenheimer Bodies Not Reportable 06/16/17 06:02 Sickle Cells Not Reportable 06/16/17 06:02 Target Cells Not Reportable 06/16/17 06:02 Tear Drop Cells Not Reportable 06/16/17 06:02 Ovalocytes Not Reportable 06/16/17 06:02 Helmet Cells Not Reportable 06/16/17 06:02 [place] Bodies Not Reportable 06/16/17 06:02 [place] Rings Not Reportable 06/16/17 06:02 [place] Cells Not Reportable 06/16/17 06:02 Bite Cells Not Reportable 06/16/17 06:02 Crenated Cell Not Reportable 06/16/17 06:02 Elliptocytes Not Reportable 06/16/17 06:02 Acanthocytes (Spur) Not Reportable 06/16/17 06:02 Rouleaux Rare 06/16/17 06:02 Hemoglobin C Crystals Not Reportable 06/16/17 06:02 Schistocytes Not Reportable 06/16/17 06:02 Malaria parasites Not Reportable 06/16/17 06:02 [place] Bodies Not Reportable 06/16/17 06:02 Hem Pathologist Commnt No 06/16/17 06:02 PT 12.7 Sec. (12.2-14.9) 06/10/17 21:52 INR 0.91 (0.87-1.13) 06/10/17 21:52 POC ABG pH 7.467 (7.35-7.45) H 06/15/17 04:26 POC ABG pCO2 39.8 (35-45) 06/15/17 04:26 POC ABG pO2 114 (80-105) H 06/15/17 04:26 POC ABG HCO3 28.8 06/15/17 04:26 POC ABG Total CO2 30 06/15/17 04:26 POC ABG O2 Sat 99 06/15/17 04:26 POC ABG Base Excess 5 06/15/17 04:26 FiO2 25 % 06/15/17 04:26 Sodium 143 mmol/L (137-145) 06/17/17 05:48 Potassium 3.2 mmol/L (3.6-5.0) L 06/17/17 05:48 Chloride 103.1 mmol/L (98-107) 06/17/17 05:48 Carbon Dioxide 25 mmol/L (22-30) 06/17/17 05:48 Anion Gap 18 mmol/L 06/17/17 05:48 BUN 11 mg/dL (9-20) 06/17/17 05:48 Creatinine 0.8 mg/dL (0.8-1.5) 06/17/17 05:48 Estimated GFR > 60 ml/min 06/17/17 05:48 BUN/Creatinine Ratio 14 % 06/17/17 05:48 Glucose 108 mg/dL (75-100) H 06/17/17 05:48 POC Glucose 132 (70-105) H 06/14/17 20:20 Lactic Acid 2.70 mmol/L (0.7-2.0) H* 06/11/17 05:25 Calcium 8.7 mg/dL (8.4-10.2) 06/17/17 05:48 Phosphorus 2.60 mg/dL (2.5-4.5) 06/15/17 18:20 Magnesium 2.10 mg/dL (1.7-2.3) 06/15/17 18:20 Total Bilirubin 0.90 mg/dL (0.1-1.2) 06/10/17 21:52 AST 17 units/L (5-40) 06/10/17 21:52 ALT 10 units/L (7-56) 06/10/17 21:52 Alkaline Phosphatase 48 units/L (35-129) 06/10/17 21:52 Total Creatine Kinase 166 units/L (55-170) 06/10/17 21:52 Troponin T < 0.010 ng/mL (0.00-0.029) 06/11/17 05:25 C-Reactive Protein 0.60 mg/dL (0.00-1.30) 06/11/17 05:25 Total Protein 8.4 g/dL (6.3-8.2) H 06/10/17 21:52 Albumin 4.7 g/dL (3.9-5) 06/10/17 21:52 Albumin/Globulin Ratio 1.3 % 06/10/17 21:52 Urine Color Yellow (Yellow) 06/10/17 21:50 Urine Turbidity Clear (Clear) 06/10/17 21:50 Urine pH 5.0 (5.0-7.0) 06/10/17 21:50 Ur Specific [place] 1.019 (1.003-1.030) 06/10/17 21:50 Urine Protein <15 mg/dl mg/dL (Negative) 06/10/17 21:50 Urine Glucose (UA) Neg mg/dL (Negative) 06/10/17 21:50 Urine Ketones Neg mg/dL (Negative) 06/10/17 21:50 Urine Blood Sm (Negative) 06/10/17 21:50 Urine Nitrite Neg (Negative) 06/10/17 21:50 Urine Bilirubin Neg (Negative) 06/10/17 21:50 Urine Urobilinogen < 2.0 mg/dL (<2.0) 06/10/17 21:50 Ur Leukocyte Esterase Neg (Negative) 06/10/17 21:50 Urine WBC (Auto) 4.0 /HPF (0.0-6.0) 06/10/17 21:50 Urine RBC (Auto) 1.0 /HPF (0.0-6.0) 06/10/17 21:50 Urine Mucus Few /HPF 06/10/17 21:50 CSF Appearance Clear 06/10/17 15:04 CSF Color Colorless 06/10/17 15:04 CSF WBC 2 /mm3 (1-10) 06/10/17 15:04 CSF RBC 3 /mm3 (0-0) 06/10/17 15:04 CSF Seg Neutrophils 3.6 % (0-6) 06/10/17 15:04 CSF Lymphocytes % 37.5 % (40-80) 06/10/17 15:04 CSF Reactive Lymphs Not Reportable 06/10/17 15:04 CSF Monocytes % 58.9 % (15-45) 06/10/17 15:04 CSF Eosinophils % Not Reportable 06/10/17 15:04 CSF Basophils Not Reportable 06/10/17 15:04 CSF Pathologist Review C 06/10/17 15:04 CSF Glucose 95 mg/dL 06/10/17 15:04 CSF Total Protein 27 mg/dL 06/10/17 15:04 Salicylates < 0.3 mg/dL (2.8-20.0) L 06/10/17 21:52 Acetaminophen < 15.0 ug/mL (10.0-30.0) 06/10/17 21:52 HIV 1&2 Antibody Rapid Non react (Non React) 06/11/17 23:39 HIV P24 Antigen Non react (Non React) 06/11/17 23:39 Miscellaneous Test Flexitest 1 H 06/13/17 Unknown
[2017-06-17 13:41] VITALS: BP 127/87
[2017-06-17] MEDS ORDERED: KEPPRA PO SCH (22:00)
[2017-06-17] MEDS ORDERED: PEPCID PO SCH (22:00)
== END 2017-06-17 20:15 | disposition left against medical advice (07) | DRG 870 ==
LOC: ED 21:25 → CC1 23:46 → 3A 06-16 06:17 → 4A 06-16 09:07
PROVIDERS: ADMIT Internal Medicine; ATTEND Hospitalist
PROC: 5A1955Z Respiratory Ventilation, Greater than 96 Consecutive Hours (ICD-10-PCS; 2017-06-10)
PROC: 0BH17EZ Insertion of Endotracheal Airway into Trachea, Via Natural or Artificial Opening (ICD-10-PCS; 2017-06-10)
PROC: 009U3ZX Drainage of Spinal Canal, Percutaneous Approach, Diagnostic (ICD-10-PCS; principal; 2017-06-11)
PROC: B01B1ZZ Fluoroscopy of Spinal Cord using Low Osmolar Contrast (ICD-10-PCS; 2017-06-11)
PROC: 4A033R1 Measurement of Arterial Saturation, Peripheral, Percutaneous Approach (ICD-10-PCS; 2017-06-11)
DX: A41.9 Sepsis, unspecified organism (principal); G03.9 Meningitis, unspecified; J96.01 Acute respiratory failure with hypoxia; G92 Toxic encephalopathy; F17.200 Nicotine dependence, unspecified, uncomplicated; E87.6 Hypokalemia; T36.8X5A Adverse effect of other systemic antibiotics, initial encounter; R56.9 Unspecified convulsions; J10.1 Influenza due to other identified influenza virus with other respiratory manifestations; Z79.899 Other long term (current) drug therapy; Y92.89 Other specified places as the place of occurrence of the external cause
CPT/HCPCS: 36415; 36600; 62270; 70450; 71045; 74018; 77003; 80048; 80053; 80320; 81001; 82140; 82550; 82803; 82947; 82962; 83735; 84100; 84160; 84484; 85007; 85025; 85610; 86140; 86403; 87040; 87086; 87116; 87400; 87806; 89051; 93005; 93010; 94002; 94003; 94760; 96365; 96367; 96368; G0480; J0133; J0330; J0696; J1100; J1630; J1644; J1953; J2060; J2250; J2270; J2405; J2920; J3010; J3370; J3480; J7030; J7040